=== PATIENT | female | born 1965 | race Two or more races ===

== ENCOUNTER 2020-05-31 17:24 | Emergency (ER) | payer OTHER, SELFPAY ==
--- NOTE | 2020-05-31 17:26 | ECG_ITS ---
Test Reason : CHEST PAIN Blood Pressure : / mmHG Vent. Rate : 088 BPM Atrial Rate : 088 BPM P-R Int : 146 ms QRS Dur : 070 ms QT Int : 360 ms P-R-T Axes : 063 -29 -12 degrees QTc Int : 435 ms Normal sinus rhythm Normal ECG When compared with ECG of 17-MAR-2016 04:36, No significant change was found Referred By: Generic ED Physician Electronically Signed By:WESLEY BRICENO MD
[2020-05-31 18:44] VITALS: BP 140/84; PULSE 83; PULSE 85; PULSE 90; RESP 18; TEMP 36.8; O2SAT 98; BMI 34.0
--- NOTE | 2020-05-31 18:55 | ED.CHESTPAIN ---
HPI - Chest Pain General Chief Complaint: Anxiety Stated Complaint: chest pain Time Seen by Provider: 05/31/20 18:37 Source: patient Mode of arrival: ambulatory Limitations: no limitations History of Present Illness HPI narrative: patient presents to the ED for 3 days of left-sided chest pain described as tightness with cramping /tingling sensation all over her body. patient states feeling nervous. Patient denies coughing up blood, fever, chills, swelling of lower extremities, calf pain, or shortness of breath. Patient denies any recent change in medication or drug use. Patient denies any recent long travel, recent surgery, coughing up blood or control use. Patient denies any breast swelling, nipple discharge, or mass on breast. Related Data Allergies Allergy/AdvReac Type Severity Reaction Status Date / Time ibuprofen Allergy Unknown stomach Verified 12/31/19 00:00 upset Review of Systems Review of Systems: Yes all other systems are reviewed and are negative Constitutional: Constitutional: Reports as per HPI and Reports no additional constitutional complaints Eyes: Eyes: Reports as per HPI and Reports no additional eye complaints ENT: Reports system reviewed and no additional complaints, except as documented and Reports as per HPI Cardiovascular: Cardiovascular: Reports as per HPI, Reports no additional cardiovascular complaints, Reports chest pain, Denies chest pain at rest, Denies chest pain with activity, Denies dyspnea on exertion, Denies orthopnea and Denies paroxysmal nocturnal dyspnea Respiratory: Respiratory: Reports as per HPI, Reports no additional respiratory complaints and Denies dyspnea on exertion Gastrointestinal: Gastrointestinal: Reports as per HPI and Reports no additional gastrointestinal complaints Genitourinary: Genitourinary: Reports no additional female genitourinary complaints and Reports as per HPI Musculoskeletal: Musculoskeletal: Reports no additional musculoskeletal complaints and Reports as per HPI Neurologic: Reports system reviewed and no additional complaints, except as documented and Reports as per HPI Comments: Tingling cramping sensation on all body. Psychiatric: Psychiatric: Reports no additional psychiatric complaints and Reports as per HPI PMF Past Medical History Medical History (Updated 06/01/20 @ 00:12 by Selin Temple) B12 deficiency Diabetes mellitus, type 2 HTN (hypertension) Surgical History (Updated 05/12/20 @ 07:08 by Opal Morales LPN) History of carpal tunnel release Hx of section Hx of tonsillectomy Family History Family History (Updated 05/12/20 @ 07:10 by Opal Morales LPN) Father Cancer Diabetes Hypertension Mother Diabetes Social History Social History (Updated 05/12/20 @ 07:10 by Opal Morales LPN) Alcohol intake: never Smoking Status: Never smoker Smoked in Last 30 Days: No Use of substances other than those prescribed or required for medical reasons: No Advance Directives: No Advance Directives Information Provided: Yes Physical Exam Vital Signs: Vital Signs: Last Vital Signs Temp 98.2 F 05/31/20 21:14 Pulse 70 05/31/20 21:14 Resp 18 05/31/20 21:14 BP 121/68 05/31/20 21:14 Pulse Ox 99 05/31/20 21:14 Body Mass Index 27.8 Const: Other: Patient seems anxious. General: cooperative, healthy appearing, comfortable, no acute distress and well developed HENMT: Head: Yes normal to inspection and Yes No palpable skull fracture present Eyes: General: appearance normal, both eyes and all related structures Visual Fountain: normal visual fountain by confrontation Neck: Neck: Yes normal visual inspection and Yes full ROM Chest: Other: Positive for left upper chest wall tenderness on palpation. Chest palpation & inspection: normal inspection of the chest and localized rib tenderness with anteroposterior compression Resp: Effort & Inspection: normal respiratory effort and able to speak in complete sentences Auscultation: clear to auscultation bilaterally, no crackles, no rales, no rhonchi and no wheezes Cardio: Jugular venous distension: no JVD Heart sounds: S1 normal heart sound present and S2 normal heart sound present GI: Inspection: Yes normal to inspection and No abdominal wall ecchymosis Palpation (GI): Soft to palpation, not firm, nontender, no guarding and not rigid : General: No CVA tenderness and Yes no CVA tenderness Back/Spine/Pelvis: Back: no CVA tenderness, No CVA tenderness and No back tenderness Skin: General skin exam: no rashes or lesions noted Neuro: Other: neuro exam is intact. Negative any facial droop, negative pronator drift. Equal strength of all extremities. General: patient oriented x3, gait normal and CN's II-XI intact bilaterally Cranial nerves: Yes CN's II-XII intact bilaterally Extrem: General: Yes normal to inspection and Yes full ROM Psych: Other: Anxiety Appearance: grossly normal, well kempt and not disheveled Course Course Course Narrative: History physical exam indicates anxiety. Due to age and risk factors of diabetes patient will have a medical workup which include troponin, EKG, D-dimer, magnesium, and CPK. Reevaluation(s) Reevaluation #1: patient's D-dimer is negative. Patient has a Wells score of 0. Patient's troponin after 3 days of chest pain is negative. Patient EKG is normal. also negative for any electrolyte abnormality or or elevated CPK to indicate rhabdomyolysis. Patient is safe for discharge. Patient has chest wall tenderness. Differential and diagnosis is anxiety versus costochondritis. History, Diagnostic & physical exam does not indicate RI, PE, Pneumonia, or rhabdomylosis Time: 22:00 MDM - Chest Pain MDM Narrative Medical decision making narrative: chest wall pain. Anxiety. Lab Data Result diagrams: 05/31/20 19:05/31/20 19:20 Labs: Lab Results 05/31/20 05/31/20 05/31/20 Range/Units 19:20 19:20 19:20 WBC 10.1 (4.8-10.8) X10*3/uL RBC 4.44 (4.20-5.50) X10*6/uL Hgb 11.7 L (12.0-16.0) g/dl Hct 36.3 L (37-47) % MCV 81.8 (80-98) fL MCH 26.4 L (27.0-33.0) pg MCHC 32.2 (31.0-35.0) g/dl RDW 13.6 (11.0-16.0) % Plt Count 364 (160-400) X10*3/uL MPV 9.7 (9.4-12.3) fL Immature Gran % (Auto) 0.3 (0.0-0.4) % Neut % (Auto) 59.0 (45-73) % Lymph % (Auto) 33.1 (20-40) % [place] % (Auto) 6.1 (2-11) % Eos % (Auto) 1.1 (0-4) % Baso % (Auto) 0.4 (0-2) % Lymph # (Auto) 3.3 (1.2-4.9) X10*3/uL [place] # (Auto) 0.6 (0.1-1.2) X10*3/uL Eos # (Auto) 0.1 (0.0-0.4) X10*3/uL Baso # (Auto) 0.0 (0.0-0.2) X10*3/uL Abs Immat Gran (auto) 0.03 (0.00-0.03) X10*3/uL Absolute Neuts (auto) 6.0 (2.0-8.3) X10*3/uL Absolute Nucleated RBC 0.000 (0.0-0.012) X10*3/uL Nucleated RBC % (auto) 0.0 (0.0-0.2) /100WBC PT (10.8-13.0) SEC INR (0.9-1.1) APTT (24.1-38.0) SEC D-Dimer NG/ML Sodium 137 (135-145) mmol/L Potassium 3.8 (3.3-5.1) mmol/l Chloride 99 (96-108) mmol/L Carbon Dioxide 31 H (22-29) mmol/L Anion Gap 11 L (12-20) BUN 8 L (9-16) mg/dL Creatinine 0.79 (0.5-1.4) mg/dL Estim Creat Clear Calc 74.0 Estimated GFR > 60 Random Glucose 139 H (60-115) mg/dL Calcium 9.3 (8.4-10.2) mg/dL Magnesium 2.1 (1.6-2.6) mg/dL Total Bilirubin 0.3 (0.0-1.0) mg/dL AST 21 (5-31) U/L ALT 18 (0-31) U/L Alkaline Phosphatase 96 (39-117) U/L Total Creatine Kinase 142 H (26-140) U/L Troponin I High Sens < 3.5 (<3.5-17.0) ng/L Total Protein 7.1 (6.5-8.0) g/dL Albumin 4.1 (3.5-5.0) g/dL 05/31/20 Range/Units 19:20 WBC (4.8-10.8) X10*3/uL RBC (4.20-5.50) X10*6/uL Hgb (12.0-16.0) g/dl Hct (37-47) % MCV (80-98) fL MCH (27.0-33.0) pg MCHC (31.0-35.0) g/dl RDW (11.0-16.0) % Plt Count (160-400) X10*3/uL MPV (9.4-12.3) fL Immature Gran % (Auto) (0.0-0.4) % Neut % (Auto) (45-73) % Lymph % (Auto) (20-40) % [place] % (Auto) (2-11) % Eos % (Auto) (0-4) % Baso % (Auto) (0-2) % Lymph # (Auto) (1.2-4.9) X10*3/uL [place] # (Auto) (0.1-1.2) X10*3/uL Eos # (Auto) (0.0-0.4) X10*3/uL Baso # (Auto) (0.0-0.2) X10*3/uL Abs Immat Gran (auto) (0.00-0.03) X10*3/uL Absolute Neuts (auto) (2.0-8.3) X10*3/uL Absolute Nucleated RBC (0.0-0.012) X10*3/uL Nucleated RBC % (auto) (0.0-0.2) /100WBC PT 11.5 (10.8-13.0) SEC INR 1.0 (0.9-1.1) APTT 39.1 H (24.1-38.0) SEC D-Dimer < 200 NG/ML Sodium (135-145) mmol/L Potassium (3.3-5.1) mmol/l Chloride (96-108) mmol/L Carbon Dioxide (22-29) mmol/L Anion Gap (12-20) BUN (9-16) mg/dL Creatinine (0.5-1.4) mg/dL Estim Creat Clear Calc Estimated GFR Random Glucose (60-115) mg/dL Calcium (8.4-10.2) mg/dL Magnesium (1.6-2.6) mg/dL Total Bilirubin (0.0-1.0) mg/dL AST (5-31) U/L ALT (0-31) U/L Alkaline Phosphatase (39-117) U/L Total Creatine Kinase (26-140) U/L Troponin I High Sens (<3.5-17.0) ng/L Total Protein (6.5-8.0) g/dL Albumin (3.5-5.0) g/dL ECG Data ECG #1: Interpretation: Normal sinus rhythm. Ventricular rate 88. VA interval 146. QRS 70. Normal EKG. Negative STEMI. Discharge Plan Discharge Clinical Impression: Atypical chest pain, Paresthesia, Acute costochondritis Patient Disposition: Home, Self-Care Instructions: Paresthesia (ED), Chest Wall Pain (ED) Additional Instructions: Return to the ED for worsening chest pain, swelling of lower extremity, coughing up blood, fever, chills, weakness, headache, dizziness, or any other concerning symptoms. Please follow-up with the PCP. you can take [id number] Tylenol Referrals: Leslie Lundy MD [Primary Care Provider] - 2 days ( Chest wall pain. Paresthesia. EKG normal in the ED. Troponin negative. D-dimer negative. No acute pulmonary or cardiac etiology in the ED) Interventions: ED Discharge Assessment Last Done: 05/31/20 22:39 Discharge Date/Time: 05/31/20 22:41 Print Language: Wolof
--- NOTE | 2020-05-31 19:05 | XR_ITS ---
EXAMINATION: XR CHEST CLINICAL INFORMATION: Chest pain for 3 days COMPARISON: 03/16/2016 TECHNIQUE: Frontal view of the chest was obtained. FINDINGS: Normal symmetric lung volumes. No parenchymal consolidation. No pleural effusion. No pneumothorax. Cardiomediastinal silhouette and pulmonary vascularity are within normal limits. No acute osseous abnormalities. XR/XR chest 1V IMPRESSION: No acute findings.
[2020-05-31 19:08] VITALS: BP 142/86; PULSE 82; RESP 20; TEMP 36.8; O2SAT 100; BMI 27.8
[2020-05-31 19:26] LABS: MANUAL DIFF FLAG NO
[2020-05-31 19:32] LABS: Basophils Percent Auto 0.4 % (0-2); Eosinophils Absolute Auto 0.1 X10*3/uL (0.0-0.4); Eosinophils Percent Auto 1.1 % (0-4); Hematocrit 36.3 % (37-47); Hemoglobin 11.7 g/dl (12.0-16.0); Imm Gran Abs Auto 0.03 X10*3/uL (0.00-0.03); Imm Gran Pct Auto 0.3 % (0.0-0.4); Lymphocytes Absolute Auto 3.3 X10*3/uL (1.2-4.9); Lymphocytes Percent Auto 33.1 % (20-40); Mean Corpuscular HGB Conc 32.2 g/dl (31.0-35.0); Mean Corpuscular Hemoglobin 26.4 pg (27.0-33.0); Mean Corpuscular Volume 81.8 fL (80-98); Mean Platelet Volume 9.7 fL (9.4-12.3); Monocytes Absolute Auto 0.6 X10*3/uL (0.1-1.2); Monocytes Percent Auto 6.1 % (2-11); Platelet Count 364 X10*3/uL (160-400); Red Blood Count 4.44 X10*6/uL (4.20-5.50); Red Cell Distribution Width 13.6 % (11.0-16.0); White Blood Count 10.1 X10*3/uL (4.8-10.8)
[2020-05-31 19:38] LABS: Prothrombin Time 11.5 SEC (10.8-13.0)
[2020-05-31 19:40] LABS: Partial Thromboplastin Time 39.1 SEC (24.1-38.0)
[2020-05-31 19:52] LABS: Alanine Aminotransferase 18 U/L (0-31); Albumin Level 4.1 g/dL (3.5-5.0); Alkaline Phosphatase 96 U/L (39-117); Anion Gap 11 (12-20); Aspartate Amino Transferase 21 U/L (5-31); Bilirubin Total 0.3 mg/dL (0.0-1.0); Blood Urea Nitrogen 8 mg/dL (9-16); Calcium 9.3 mg/dL (8.4-10.2); Carbon Dioxide 31 mmol/L (22-29); Chloride 99 mmol/L (96-108); Estimated Glomerular Filt Rate > 60; Glucose Random 139 mg/dL (60-115); Magnesium 2.1 mg/dL (1.6-2.6); Potassium 3.8 mmol/l (3.3-5.1); Sodium 137 mmol/L (135-145); Total Protein 7.1 g/dL (6.5-8.0)
[2020-05-31 19:58] LABS: Troponin-I High Sensitivity < 3.5 ng/L (<3.5-17.0)
[2020-05-31 20:01] LABS: D Dimer < 200 NG/ML
[2020-05-31] MEDS: Acetaminophen 325 MG TABLET 650 MG PO (20:50)
[2020-05-31 21:14] VITALS: BP 121/68; PULSE 70; RESP 18; TEMP 36.8; O2SAT 99
--- NOTE | 2020-05-31 22:37 | PC.NURSE ---
pt awake and alert, nsr on monitor at 82 bpm. pt still experiencing tightness in chest radiating up to anterior neck, at times. pt in no distress, skin is warm and dry. pt has an appt tmrw with her pcp.
== END 2020-05-31 22:41 | disposition home or self-care (01) ==
PROVIDERS: Physician Assistant; Emergency Provider Emergency Medicine; PCP Internal Medicine
DX: M94.0 Chondrocostal junction syndrome [Tietze] (principal); R07.9 Chest pain, unspecified; R20.2 Paresthesia of skin; F41.9 Anxiety disorder, unspecified; Z79.899 Other long term (current) drug therapy
CPT/HCPCS: 36415; 71045; 80053; 82550; 83735; 84484; 85025; 85379; 85610; 85730; 93005; 99283; 99284

== ENCOUNTER 2020-06-03 15:27 | Outpatient (REF) | payer OTHER, SELFPAY ==
[2020-06-03 16:22] LABS: Estimated Average Glucose 160 mg/dL; Hemoglobin A1c % 7.2 %
[2020-06-03 16:47] LABS: Alanine Aminotransferase 25 U/L (0-31); Albumin Level 4.2 g/dL (3.5-5.0); Alkaline Phosphatase 84 U/L (39-117); Anion Gap 18 (12-20); Aspartate Amino Transferase 25 U/L (5-31); Bilirubin Total 0.6 mg/dL (0.0-1.0); Blood Urea Nitrogen 9 mg/dL (9-16); Calcium 9.4 mg/dL (8.4-10.2); Carbon Dioxide 27 mmol/L (22-29); Chloride 97 mmol/L (96-108); Estimated Glomerular Filt Rate > 60; Glucose Random 108 mg/dL (60-115); Potassium 3.8 mmol/l (3.3-5.1); Sodium 138 mmol/L (135-145); Total Protein 7.3 g/dL (6.5-8.0)
[2020-06-03 17:04] LABS: Thyroid Stimulating Hormone 0.45 uIU/mL (0.32-4.0)
[2020-06-03 17:16] LABS: Vitamin B12 521 pg/mL (200-900)
[2020-06-03 17:35] LABS: Erythrocyte Sedimentation Rate 25 MM/HR (0-20)
[2020-06-03 17:44] LABS: Rheumatoid Factor < 15.0 IU/mL (<15.0)
[2020-06-04 14:22] LABS: Anti Nuclear Antibody Screen NEGATIVE (NEGATIVE)
== END 2020-06-03 15:28 | disposition home or self-care (01) ==
LOC: HO.LAB 15:27
PROVIDERS: PCP Internal Medicine; Referring Provider Psychiatry & Neurology Neurology; Visit Provider Internal Medicine
DX: M79.7 Fibromyalgia (principal)
CPT/HCPCS: 36415; 80053; 82550; 82607; 82746; 83036; 84443; 85652; 86038; 86039; 86431

== ENCOUNTER → 2020-08-05 07:46 | Outpatient (BNVA) | payer OTHER, SELFPAY | PROVIDERS: PCP Internal Medicine; Referring Provider Internal Medicine; Visit Provider Internal Medicine Endocrinology, Diabetes & Metabolism | DX: Z76.89 Persons encountering health services in other specified circumstances (principal) ==

== ENCOUNTER 2020-08-13 07:33 | Outpatient (REF) | payer OTHER, SELFPAY ==
[2020-08-14 20:57] LABS: Adrenocorticotropic Hormone 6 pg/mL (6-50)
[2020-08-19 12:43] LABS: Dexamethasone 558 ng/dL
== END 2020-08-13 07:34 | disposition home or self-care (01) ==
LOC: HO.LAB 07:33
PROVIDERS: PCP Internal Medicine; Visit Provider Internal Medicine Endocrinology, Diabetes & Metabolism
DX: D35.02 Benign neoplasm of left adrenal gland (principal)
CPT/HCPCS: 36415; 80299; 82024; 82533

== ENCOUNTER 2020-09-07 12:24 | Outpatient (REF) | payer OTHER, SELFPAY ==
[2020-09-07 13:47] LABS: Alanine Aminotransferase 19 U/L (0-31); Albumin Level 4.2 g/dL (3.5-5.0); Alkaline Phosphatase 88 U/L (39-117); Anion Gap 13 (12-20); Aspartate Amino Transferase 17 U/L (5-31); Bilirubin Total 0.6 mg/dL (0.0-1.0); Blood Urea Nitrogen 8 mg/dL (9-16); Calcium 9.6 mg/dL (8.4-10.2); Carbon Dioxide 26 mmol/L (22-29); Chloride 103 mmol/L (96-108); Estimated Glomerular Filt Rate > 60; Glucose Random 118 mg/dL (60-115); Potassium 3.8 mmol/L (3.3-5.1); Sodium 138 mmol/L (135-145); Total Protein 7.2 g/dL (6.5-8.0)
[2020-09-07 13:59] LABS: Estimated Average Glucose 140 mg/dL; Hemoglobin A1C 148.5257 umol/L; Hemoglobin A1c % 6.5 %
== END 2020-09-07 12:25 | disposition home or self-care (01) ==
LOC: HO.LAB 12:24
PROVIDERS: Visit Provider Internal Medicine
DX: E03.9 Hypothyroidism, unspecified (principal); E11.9 Type 2 diabetes mellitus without complications; I10 Essential (primary) hypertension
CPT/HCPCS: 36415; 80053; 83036

== ENCOUNTER 2020-12-10 01:17 | Emergency (ER) | payer OTHER, SELFPAY ==
--- NOTE | ~2020-12-10 | CT_ITS ---
EXAMINATION: CT ABDOMEN AND PELVIS WITH CONTRAST CLINICAL INFORMATION: Left abdominal pain COMPARISON: 02/09/2018 TECHNIQUE: Multidetector volumetric images were obtained from the superior aspect of the liver through the pubic symphysis following administration 85 mL of Omnipaque 350 intravenous contrast. Sagittal and coronal reformatted images were obtained on the technologist's workstation. Oral contrast: No This CT examination was performed using dose optimization techniques as appropriate, variously including the following: *Automated exposure control *Adjustment of mA and/or kV according to patient size (this includes techniques or standardized protocols for targeted exams where dose is matched to indication/reason for exam; i.e. extremities or head) *Use of iterative reconstruction technique DLP: 640 mGy-cm FINDINGS: LUNG BASES: The visualized lung bases demonstrate minimal atelectasis. LIVER, GALLBLADDER, AND BILIARY TREE: The liver is normal in size, shape, and attenuation. No focal hepatic lesion or biliary ductal dilatation is present. The gallbladder is unremarkable with no evidence of radiopaque gallstones, gallbladder wall thickening, or obvious pericholecystic inflammatory changes. PANCREAS: Unremarkable. SPLEEN: Unremarkable. ADRENAL GLANDS: Stable small left adrenal nodule, statistically likely an adenoma. KIDNEYS AND URETERS: The kidneys are normal in size, shape, and attenuation. No hydronephrosis, hydroureter, or obstructing calculi seen. No perinephric stranding. BLADDER: Unremarkable. GASTROINTESTINAL TRACT: There is fecalization of distal small bowel loops extending to the ileocecal valve, suggesting delayed intestinal transit without specific evidence for obstruction. Prominent stool in the ascending and proximal transverse colon. No significant bowel wall thickening is seen. The appendix is unremarkable. No free fluid or free air is seen. ABDOMINAL WALL: No significant hernia is appreciated. LYMPH NODES: Normal. VASCULAR: Unremarkable. PELVIC VISCERA: Unremarkable. OSSEOUS STRUCTURES: Degenerative changes are noted in the spine. CT/CT abdomen pelvis w con IMPRESSION: Fecalization of distal small bowel loops suggesting delayed intestinal transit, without specific evidence for obstruction.
[2020-12-10 02:21] VITALS: BP 149/94; PULSE 71; RESP 16; TEMP 36.7; O2SAT 99; BMI 31.7
[2020-12-10 02:44] LABS: MANUAL DIFF FLAG NO
[2020-12-10 02:46] LABS: Basophils Percent Auto 0.3 % (0-2); Eosinophils Absolute Auto 0.1 X10*3/uL (0.0-0.4); Eosinophils Percent Auto 0.8 % (0-4); Hematocrit 37.8 % (37-47); Imm Gran Abs Auto 0.03 X10*3/uL (0.00-0.03); Imm Gran Pct Auto 0.3 % (0.0-0.4); Lymphocytes Absolute Auto 2.7 X10*3/uL (1.2-4.9); Lymphocytes Percent Auto 25.2 % (20-40); Mean Corpuscular HGB Conc 31.7 g/dl (31.0-35.0); Mean Corpuscular Hemoglobin 26.2 pg (27.0-33.0); Mean Corpuscular Volume 82.5 fL (80-98); Mean Platelet Volume 9.6 fL (9.4-12.3); Monocytes Absolute Auto 0.7 X10*3/uL (0.1-1.2); Monocytes Percent Auto 6.3 % (2-11); Neutrophils Absolute Auto 7.2 X10*3/uL (2.0-8.3); Neutrophils Percent Auto 67.1 % (45-73); Platelet Count 344 X10*3/uL (160-400); Red Blood Count 4.58 X10*6/uL (4.20-5.50); Red Cell Distribution Width 14.3 % (11.0-16.0); White Blood Count 10.7 X10*3/uL (4.8-10.8)
[2020-12-10 03:09] LABS: Alanine Aminotransferase 17 U/L (0-31); Alkaline Phosphatase 98 U/L (39-117); Anion Gap 11 (12-20); Aspartate Amino Transferase 15 U/L (5-31); Bilirubin Total 0.2 mg/dL (0.0-1.0); Blood Urea Nitrogen 9 mg/dL (9-16); Calcium 9.1 mg/dL (8.4-10.2); Carbon Dioxide 27 mmol/L (22-29); Chloride 106 mmol/L (96-108); Creatinine Clr Calc Pharmacy 69.7; Estimated Glomerular Filt Rate > 60; Glucose Random 129 mg/dL (60-115); Lipase 22 U/L (8-78); Potassium 3.9 mmol/L (3.3-5.1); Sodium 140 mmol/L (135-145); Total Protein 6.9 g/dL (6.5-8.0)
[2020-12-10 04:00] VITALS: BP 149/74; PULSE 80; RESP 16; TEMP 36.7; O2SAT 98
--- NOTE | 2020-12-10 04:46 | ED.ABDPAIN ---
HPI - Abdominal Pain General Chief Complaint: Abdominal Pain Stated Complaint: back pain Time Seen by Provider: 12/10/20 04:46 Source: patient Mode of arrival: ambulatory History of Present Illness HPI narrative: 55-year-old female presents with abdominal pain that started yesterday and radiates across her lower abdomen but primarily on the left with radiation into the front. This is not been associated with fever, chills, nausea, vomiting and patient states that she is still passing flatus and having bowel movements. The pain is better tolerated in a standing position in becomes worse with lying down. Related Data Home Medications Medication Instructions Recorded Confirmed biotin 1 mg capsule 5,000 mg PO DAILY cap 08/05/20 08/05/20 cholecalciferol (vitamin D3) 25 25 mcg PO DAILY 08/05/20 08/05/20 mcg (1,000 unit) capsule levothyroxine 88 mcg capsule 88 mcg PO DAILY 08/05/20 08/05/20 metformin 500 mg tablet 500 mg PO BID tab 08/05/20 08/05/20 multivitamin 1 tab PO DAILY 08/05/20 08/05/20 Previous Rx's Medication Instructions Recorded dexamethasone 1 mg tablet 1 mg PO ONCE 1 Days #1 tab 08/05/20 Allergies Allergy/AdvReac Type Severity Reaction Status Date / Time ibuprofen Allergy Unknown stomach Verified 12/31/19 00:00 upset Review of Systems Review of Systems Pertinent positives and negatives as stated in HPI 10 point review of systems is otherwise negative. Physical Exam Vital Signs: Vital Signs: Last Vital Signs Temp 98.1 F 12/10/20 06:00 Pulse 72 12/10/20 07:57 Resp 15 12/10/20 06:00 BP 125/73 12/10/20 07:57 Pulse Ox 99 12/10/20 06:00 Body Mass Index 31.7 VITAL SIGNS: Reviewed. GENERAL: Well developed, well nourished, in no acute distress. HEAD: Normocephalic/atraumatic, EYES: PERRLA, EOMI EARS: Ext canals without abnormality, NOSE: Nares patent bilateral OROPHARYNX: no oral lesions noted, posterior pharynx clear NECK: Supple, no adenopathy LUNGS: Normal breath sounds. No adventitious sounds or accessory muscle use. SpO2<99> CARDIOVASCULAR: Regular rate and rhythm without noted murmurs ABDOMEN: Soft, tenderness on left abdomen into the flank without rebound and no CVA tenderness noted, non-distended with bowel sounds. NEUROLOGIC: Alert and oriented x 4. Course Course Course Narrative: 45-year-old female with history and clinical presentation suggestive of possible diverticulitis, renal colic, SBO but less likely UTI. On review of all investigations there in no acute findings other than CT impression of fecalization of distal small bowel loops extending to the ileocecal valve without specific evidence for obstruction. This was discussed with Dr. Murcia who will be by to see the patient and thinks this to be most consistent with partial bowel obstruction. Dr. Murcia came by and evaluated the patient who is resting comfortably in bed and has a completely benign abdomen and on questioning feels much better. Patient was informed of all results and was instructed to follow-up with her primary care provider today. MDM - Abdominal Pain Lab Data Result diagrams: 12/10/20 02:41 12/10/20 02:41 Labs: Lab Results 12/10/20 12/10/20 12/10/20 Range/Units 02:41 02:41 02:41 WBC 10.7 (4.8-10.8) X10*3/uL RBC 4.58 (4.20-5.50) X10*6/uL Hgb 12.0 (12.0-16.0) g/dl Hct 37.8 (37-47) % MCV 82.5 (80-98) fL MCH 26.2 L (27.0-33.0) pg MCHC 31.7 (31.0-35.0) g/dl RDW 14.3 (11.0-16.0) % Plt Count 344 (160-400) X10*3/uL MPV 9.6 (9.4-12.3) fL Immature Gran % (Auto) 0.3 (0.0-0.4) % Neut % (Auto) 67.1 (45-73) % Lymph % (Auto) 25.2 (20-40) % [place] % (Auto) 6.3 (2-11) % Eos % (Auto) 0.8 (0-4) % Baso % (Auto) 0.3 (0-2) % Lymph # (Auto) 2.7 (1.2-4.9) X10*3/uL [place] # (Auto) 0.7 (0.1-1.2) X10*3/uL Eos # (Auto) 0.1 (0.0-0.4) X10*3/uL Baso # (Auto) 0.0 (0.0-0.2) X10*3/uL Abs Immat Gran (auto) 0.03 (0.00-0.03) X10*3/uL Absolute Neuts (auto) 7.2 (2.0-8.3) X10*3/uL Absolute Nucleated RBC 0.000 (0.0-0.012) X10*3/uL Nucleated RBC % (auto) 0.0 (0.0-0.2) /100WBC Hold Blue Top SEE NOTE Sodium 140 (135-145) mmol/L Potassium 3.9 (3.3-5.1) mmol/L Chloride 106 (96-108) mmol/L Carbon Dioxide 27 (22-29) mmol/L Anion Gap 11 L (12-20) BUN 9 (9-16) mg/dL Creatinine 0.75 (0.5-1.4) mg/dL Estim Creat Clear Calc 69.7 Estimated GFR > 60 Random Glucose 129 H (60-115) mg/dL Calcium 9.1 (8.4-10.2) mg/dL Total Bilirubin 0.2 (0.0-1.0) mg/dL AST 15 (5-31) U/L ALT 17 (0-31) U/L Alkaline Phosphatase 98 (39-117) U/L Total Protein 6.9 (6.5-8.0) g/dL Albumin 4.0 (3.5-5.0) g/dL Lipase 22 (8-78) U/L Urine Color Urine Appearance Urine pH (5.0-8.0) Ur Specific [place] (1.005-1.025) Urine Protein (NEG-TRACE) MG/DL Urine Glucose (UA) (NEG) MG/DL Urine Ketones (NEG) MG/DL Urine Blood (NEG) Urine Nitrite (NEG) Ur Leukocyte Esterase (NEG) 12/10/20 Range/Units 07:46 WBC (4.8-10.8) X10*3/uL RBC (4.20-5.50) X10*6/uL Hgb (12.0-16.0) g/dl Hct (37-47) % MCV (80-98) fL MCH (27.0-33.0) pg MCHC (31.0-35.0) g/dl RDW (11.0-16.0) % Plt Count (160-400) X10*3/uL MPV (9.4-12.3) fL Immature Gran % (Auto) (0.0-0.4) % Neut % (Auto) (45-73) % Lymph % (Auto) (20-40) % [place] % (Auto) (2-11) % Eos % (Auto) (0-4) % Baso % (Auto) (0-2) % Lymph # (Auto) (1.2-4.9) X10*3/uL [place] # (Auto) (0.1-1.2) X10*3/uL Eos # (Auto) (0.0-0.4) X10*3/uL Baso # (Auto) (0.0-0.2) X10*3/uL Abs Immat Gran (auto) (0.00-0.03) X10*3/uL Absolute Neuts (auto) (2.0-8.3) X10*3/uL Absolute Nucleated RBC (0.0-0.012) X10*3/uL Nucleated RBC % (auto) (0.0-0.2) /100WBC Hold Blue Top Sodium (135-145) mmol/L Potassium (3.3-5.1) mmol/L Chloride (96-108) mmol/L Carbon Dioxide (22-29) mmol/L Anion Gap (12-20) BUN (9-16) mg/dL Creatinine (0.5-1.4) mg/dL Estim Creat Clear Calc Estimated GFR Random Glucose (60-115) mg/dL Calcium (8.4-10.2) mg/dL Total Bilirubin (0.0-1.0) mg/dL AST (5-31) U/L ALT (0-31) U/L Alkaline Phosphatase (39-117) U/L Total Protein (6.5-8.0) g/dL Albumin (3.5-5.0) g/dL Lipase (8-78) U/L Urine Color STRAW Urine Appearance CLEAR Urine pH 5.5 (5.0-8.0) Ur Specific [place] <= 1.005 (1.005-1.025) Urine Protein NEG (NEG-TRACE) MG/DL Urine Glucose (UA) NEG (NEG) MG/DL Urine Ketones NEG (NEG) MG/DL Urine Blood NEG (NEG) Urine Nitrite NEG (NEG) Ur Leukocyte Esterase NEG (NEG) Discharge Plan Discharge Clinical Impression: Abdominal pain, Constipation Patient Disposition: Home, Self-Care Instructions: Constipation (ED), High Fiber Diet (ED) Additional Instructions: Resume all home medications as prescribed. Follow-up with your primary care provider today for re-evaluation regarding your abdominal pain/CT findings constipation. Return to the emergency room should you experience any worsening of your symptoms. Prescriptions: No Action metformin 500 mg tablet 500 mg PO BID RF: 0 biotin 1 mg capsule 5,000 mg PO DAILY RF: 0 levothyroxine 88 mcg capsule 88 mcg PO DAILY RF: 0 multivitamin Tablet 1 tab PO DAILY RF: 0 cholecalciferol (vitamin D3) 25 mcg (1,000 unit) capsule 25 mcg PO DAILY RF: 0 dexamethasone 1 mg tablet 1 mg PO ONCE 1 Days Qty: 1 RF: 0 Referrals: Leslie Lundy MD [Primary Care Provider] - 2 days (Re-evaluation abdominal pain and found to have constipation.) [facility] Past Medical History Source: nursing notes reviewed Medical History (Updated 12/10/20 @ 08:41 by Eliana Stinson MD) Abnormal CT scan, gastrointestinal tract Adenoma of left adrenal gland B12 deficiency Diabetes mellitus, type 2 HTN (hypertension) Hypothyroidism Vitamin D deficiency Surgical History History of carpal tunnel release Hx of section Hx of tonsillectomy Family History Family History Father Cancer Diabetes Hypertension Mother Diabetes Social History Social History Alcohol intake: never Smoking Status: Never smoker Use of substances other than those prescribed or required for medical reasons: No Advance Directives: No Advance Directives Information Provided: No Patient : No
[2020-12-10] MEDS: 0.9 % Sodium Chloride 1,000 ML 999 ML IV (04:47)
[2020-12-10] MEDS: Ketorolac Tromethamine 15 MG/ML VIAL IVPUSH (04:47)
[2020-12-10] MEDS: iohexoL 350 MG/ML 100 ML INFUS..BTL 85 ML IV (05:39)
[2020-12-10 06:00] VITALS: BP 136/76; PULSE 71; RESP 15; TEMP 36.7; O2SAT 99
[2020-12-10 07:57] VITALS: BP 125/73; PULSE 72
[2020-12-10 07:58] LABS: Glucose Urine UA NEG (NEG); Leukocyte Esterase Urine NEG (NEG); Nitrite Urine NEG (NEG); PH 5.5 (5.0-8.0); Specific Gravity - Urine <= 1.005 (1.005-1.025); Urine Blood NEG (NEG); Urine Ketones NEG (NEG); Urine Protein NEG (NEG-TRACE)
[2020-12-10 08:00] LABS: Appearance Urine CLEAR; Color Urine STRAW
--- NOTE | 2020-12-10 08:21 | P.CONGS_ITS ---
History of Present Illness Consult details Consult date: 12/10/20 Narrative: 55-year-old female who came to the emergency room early this morning because of what she describes as severe back pain. She said this was mostly on the left mid back to the left lower back radiating to the left flank. She did state that the pain was also noted on the right side. She actually says that she really did not have any abdominal pain but what she felt was that the pain was radiating to the flanks. She denies any nausea or vomiting. She denies any problems with bowel movements. She denies any urinary complaints. She says the pain on her back was severe that she could barely walk earlier. Virginie crowley says she feels better now but this was because she got a lot of pain medications here in the emergency room. Review of Systems Constitutional: Constitutional: Denies chills and Denies fever(s) Cardiovascular: Cardiovascular: Denies chest pain, Denies dyspnea and Denies dyspnea on exertion Respiratory: Respiratory: Denies cough, Denies dyspnea and Denies dyspnea on exertion Gastrointestinal: Gastrointestinal: Denies hematochezia and Denies change in bowel habits Genitourinary: Genitourinary: Denies hematuria Musculoskeletal: Musculoskeletal: Denies back pain and Denies limited range of motion Neurologic: Denies focal weakness and Denies convulsions Psychiatric: Psychiatric: Reports anxiety, Reports depression, Denies mood swings and Reports panic attacks PMFSH Past Medical History Medical History (Updated 12/10/20 @ 08:41 by Eliana Stinson MD) Abnormal CT scan, gastrointestinal tract Adenoma of left adrenal gland B12 deficiency Diabetes mellitus, type 2 HTN (hypertension) Hypothyroidism Vitamin D deficiency Family History Family History Father Cancer Diabetes Hypertension Mother Diabetes Surgical History Surgical History History of carpal tunnel release Hx of section Hx of tonsillectomy Social History Social History Alcohol intake: never Smoking Status: Never smoker Use of substances other than those prescribed or required for medical reasons: No Advance Directives: No Advance Directives Information Provided: No Patient : No Meds Allergies Allergy/AdvReac Type Severity Reaction Status Date / Time ibuprofen Allergy Unknown stomach Verified 12/31/19 00:00 upset Home Medications Medication Instructions Recorded Confirmed Last Taken Type biotin 1 mg capsule 5,000 mg PO DAILY cap 08/05/20 08/05/20 Unknown History cholecalciferol (vitamin D3) 25 25 mcg PO DAILY 08/05/20 08/05/20 Unknown History mcg (1,000 unit) capsule levothyroxine 88 mcg capsule 88 mcg PO DAILY 08/05/20 08/05/20 Unknown History metformin 500 mg tablet 500 mg PO BID tab 08/05/20 08/05/20 Unknown History multivitamin 1 tab PO DAILY 08/05/20 08/05/20 Unknown History Physical Exam Vital Signs: Vital Signs: Last Vital Signs Temp 98.1 F 12/10/20 06:00 Pulse 72 12/10/20 07:57 Resp 15 12/10/20 06:00 BP 125/73 12/10/20 07:57 Pulse Ox 99 12/10/20 06:00 Body Mass Index 31.7 Const: Other: Appears anxious, denies abdominal pain General: comfortable and no acute distress Orientation/consciousness: patient oriented x3 Neck: Neck: Yes no lymphadenopathy Resp: Auscultation: clear to auscultation bilaterally Cardio: Rhythm: regular rhythm GI: Palpation (GI): Soft to palpation, nontender and no guarding : General: Yes no CVA tenderness Back/Spine/Pelvis: Back: no CVA tenderness Neuro: General: patient oriented x3 Results Labs Result diagrams: 12/10/20 02:41 12/10/20 02:41 Labs: Abnormal lab results 12/10/20 12/10/20 Range/Units 02:41 02:41 MCH 26.2 L (27.0-33.0) pg Anion Gap 11 L (12-20) Random Glucose 129 H (60-115) mg/dL Short CBC 12/10/20 Range/Units 02:41 WBC 10.7 (4.8-10.8) X10*3/uL Hgb 12.0 (12.0-16.0) g/dl Hct 37.8 (37-47) % Plt Count 344 (160-400) X10*3/uL BMP 12/10/20 02:41 Sodium 140 Potassium 3.9 Chloride 106 Carbon Dioxide 27 BUN 9 Creatinine 0.75 Calcium 9.1 Liver Function 12/10/20 Range/Units 02:41 Total Bilirubin 0.2 (0.0-1.0) mg/dL AST 15 (5-31) U/L ALT 17 (0-31) U/L Alkaline Phosphatase 98 (39-117) U/L Albumin 4.0 (3.5-5.0) g/dL Urine 12/10/20 Range/Units 07:46 Urine Color STRAW Urine Appearance CLEAR Urine pH 5.5 (5.0-8.0) Ur Specific [place] <= 1.005 (1.005-1.025) Urine Protein NEG (NEG-TRACE) MG/DL Urine Glucose (UA) NEG (NEG) MG/DL All other labs normal. Imaging Abdomen CT scan report/results: report reviewed and image reviewed CT scan - pelvis: report reviewed and image reviewed Assessment and Plan (1) Abnormal CT scan, gastrointestinal tract: Status: Acute The patient came to the ER early this morning because of what she describe s severe back pain mostly on the left side and extending to the left flank area. She had a CAT scan of the abdomen done which showed some fecalization of the terminal ileum. However there is no obstruction noted. She has good amount of air in the colon elevated transverse. She denies any GI complaints and does not have any nausea or vomiting. Her abdominal exam is very benign and there is no tenderness at all. She has no nausea or vomiting. At this time, she does not seem to have any surgical issues clinically. Again, review of her CAT scan does not suggest obstruction at this point. She states that her main complaint was back pain radiating to the flanks. I would recommend further workup for back pain. At this time, she can resume diet as tolerated. I will follow along for serial abdominal exam while she is in the hospital. I explained the above to the patient and her . Procedures Date of Service Date of Service: 12/10/20
== END 2020-12-10 09:06 | disposition home or self-care (01) ==
PROVIDERS: Emergency Provider Student in an Organized Health Care Education/Training Program; PCP Internal Medicine
DX: K59.00 Constipation, unspecified (principal); R10.9 Unspecified abdominal pain; R93.3 Abnormal findings on diagnostic imaging of other parts of digestive tract; E11.9 Type 2 diabetes mellitus without complications; I10 Essential (primary) hypertension
CPT/HCPCS: 36415; 74177; 80053; 81003; 83690; 85025; 96361; 96374; 99284; 99285; J1885; Q9967

== ENCOUNTER 2021-04-26 10:10 | Outpatient (REF) | payer OTHER, SELFPAY ==
[2021-04-26 11:19] LABS: Estimated Average Glucose 140 mg/dL; Hemoglobin A1C 150.0319 umol/L; Hemoglobin A1c % 6.5 %
[2021-04-26 11:24] LABS: Alanine Aminotransferase 14 U/L (0-31); Albumin Level 3.9 g/dL (3.5-5.0); Alkaline Phosphatase 90 U/L (39-117); Anion Gap 10 (12-20); Aspartate Amino Transferase 16 U/L (5-31); Bilirubin Total 0.2 mg/dL (0.0-1.0); Blood Urea Nitrogen 7 mg/dL (9-16); Calcium 9.2 mg/dL (8.4-10.2); Carbon Dioxide 28 mmol/L (22-29); Chloride 105 mmol/L (96-108); Estimated Glomerular Filt Rate > 60; Glucose Fasting 125 mg/dL (60-99); Potassium 3.7 mmol/L (3.3-5.1); Sodium 139 mmol/L (135-145); Total Protein 6.8 g/dL (6.5-8.0)
== END 2021-04-26 10:11 | disposition home or self-care (01) ==
LOC: HO.LAB 10:10
PROVIDERS: PCP Internal Medicine; Visit Provider Internal Medicine
DX: E11.9 Type 2 diabetes mellitus without complications (principal)
CPT/HCPCS: 36415; 80053; 83036

== ENCOUNTER 2021-04-30 23:27 | Emergency (ER) | payer OTHER, SELFPAY ==
[2021-05-01 00:46] VITALS: BP 130/81; PULSE 78; RESP 18; TEMP 36.7; O2SAT 99; BMI 32.1
[2021-05-01 02:00] VITALS: BP 131/83; PULSE 76; RESP 18; TEMP 36.3; O2SAT 100
[2021-05-01 04:00] VITALS: BP 125/74; PULSE 66; RESP 18; TEMP 36.7; O2SAT 99
--- NOTE | 2021-05-01 04:25 | PC.NURSE ---
Provider at bed side for primary eval.
--- NOTE | 2021-05-01 04:34 | ED_ITS ---
HPI - Skin/Abscess/Foreign Bdy General Chief complaint: Skin/Abscess/Foreign Body Stated complaint: Belly button discharge/pain Time Seen by Provider: 05/01/21 01:49 Source: patient Mode of arrival: ambulatory Limitations: no limitations History of Present Illness HPI narrative: Patient comes emergency room complaining of discharge coming from the belly button with a foul smell. Patient denies fever chills, no abdominal pain. Related Data Home Medications Medication Instructions Recorded Confirmed biotin 1 mg capsule 5,000 mg PO DAILY cap 08/05/20 08/05/20 cholecalciferol (vitamin D3) 25 25 mcg PO DAILY 08/05/20 08/05/20 mcg (1,000 unit) capsule levothyroxine 88 mcg capsule 88 mcg PO DAILY 08/05/20 08/05/20 metformin 500 mg tablet 500 mg PO BID tab 08/05/20 08/05/20 multivitamin 1 tab PO DAILY 08/05/20 08/05/20 Previous Rx's Medication Instructions Recorded dexamethasone 1 mg tablet 1 mg PO ONCE 1 Days #1 tab 08/05/20 clotrimazole 1 % topical cream 1 appl TOPICAL TID #15 g 05/01/21 (Lotrimin AF (clotrimazole)) Allergies Allergy/AdvReac Type Severity Reaction Status Date / Time ibuprofen Allergy Unknown stomach Verified 12/31/19 00:00 upset Review of Systems Review of Systems: Constitutional : No Weight loss, No Fever, No Chills, No Night Sweats, No Fatigue, No Malaise ENT/Mouth : No Hearing loss, No Ear Pain, No Nasal Congestion, No Sinus Pain, No Hoarseness, No sore throat, No Rhinorrhea, No Swallowing Difficulty Eyes: No Eye Pain, No Swelling, No Redness, No Foreign Body, No Discharge, No Vision Changes Cardiovascular : No Chest Pain, No SOB, No Dyspnea on Exertion, No Orthopnea, No Edema, No Palpitations Respiratory : No Cough, No Sputum, No Wheezing, No Smoke Exposure, No Dyspnea Gastrointestinal : No Nausea, No Vomiting, No Diarrhea, No Constipation, No abdominal Pain, No Hematochezia, No Melena Genitourinary : no irregular bleeding, No Dysuria, No Urinary Frequency, No Hematuria, No Urinary Incontinence, No Urgency, No Flank Pain, No Urinary Flow Changes, No Hesitancy Musculoskeletal : No joint pain, No Myalgias, No Joint Swelling Skin : Brown discharge coming from the umbilicus Neuro : No Weakness, No Numbness, No Paresthesias, No Loss of Consciousness, No Dizziness, No Headache Psych : No Anxiety/Panic, No Depression, No SI/HI/AH/VH, No Social Issues, Heme/Lymph: No Bruising, No Bleeding,No Lymphadenopathy Endocrine : No Polyuria, No Polydipsia, No Temperature Intolerance [facility] Past Medical History Medical History Abnormal CT scan, gastrointestinal tract Adenoma of left adrenal gland B12 deficiency Diabetes mellitus, type 2 HTN (hypertension) Hypothyroidism Vitamin D deficiency Surgical History History of carpal tunnel release Hx of section Hx of tonsillectomy Family History Family History Father Cancer Diabetes Hypertension Mother Diabetes Social History Social History Alcohol intake: never Advance Directives: No Patient : No Physical Exam Vital Signs: Vital Signs: Last Vital Signs Temp 97.3 F 05/01/21 02:00 Pulse 76 05/01/21 02:00 Resp 18 05/01/21 02:00 BP 131/83 05/01/21 02:00 Pulse Ox 100 05/01/21 02:00 Body Mass Index 32.1 Const: Other: Appearance: Alert. Oriented X3. No acute distress. Eyes: Pupils equal, round and reactive to light. ENT: Pharynx normal. Neck: Normal inspection. Neck supple. No lymph nodes noted. No crepitus CVS: Normal heart rate and rhythm. Pulses normal. Normal S1 and S2 Respiratory: No respiratory distress. Breath sounds normal. No Wheezing. No rales Abdomen: Soft and nontender. No rigidity. No distention. Umbilicus has brownish discharge, no pus, no blood, erythema inside the umbilicus, skin in the abdomen completely within normal limits, bedside ultrasound does not show any abscess in the lower quadrants or underneath the umbilicus Skin: Skin warm and dry. Normal skin color. Normal skin turgor. Extremities: No lower extremity edema. No lower extremity edema. No Lacerations. No Rash Neuro: Oriented X 3. No motor deficit. No sensory deficit. Moving all extermities. No slurred speech. Course Course Course Narrative: I discussed the physical exam with the patient, patient likely having a fungal infection/cutaneous candidiasis. Umbilicus was completely clean, no discharge to obtain, no pus, only surrounding erythema. Discharge Plan Discharge Clinical Impression: Candidiasis Patient Disposition: Home, Self-Care Instructions: Skin Yeast Infection (ED) Additional Instructions: Please follow-up with your primary care physician tomorrow. If you have any worsening or new symptoms, please return to the emergency room or call 911 Prescriptions: New clotrimazole [Lotrimin AF (clotrimazole)] 1 % cream 1 appl topical TID Qty: 15 RF: 0 No Action metformin 500 mg tablet 500 mg PO BID RF: 0 biotin 1 mg capsule 5,000 mg PO DAILY RF: 0 levothyroxine 88 mcg capsule 88 mcg PO DAILY RF: 0 multivitamin Tablet 1 tab PO DAILY RF: 0 cholecalciferol (vitamin D3) 25 mcg (1,000 unit) capsule 25 mcg PO DAILY RF: 0 dexamethasone 1 mg tablet 1 mg PO ONCE 1 Days Qty: 1 RF: 0
== END 2021-05-01 05:04 | disposition home or self-care (01) ==
PROVIDERS: Emergency Provider Emergency Medicine; PCP Internal Medicine
DX: B37.2 Candidiasis of skin and nail (principal); I10 Essential (primary) hypertension; E11.9 Type 2 diabetes mellitus without complications; Z79.84 Long term (current) use of oral hypoglycemic drugs; Z79.899 Other long term (current) drug therapy
CPT/HCPCS: 99283

== ENCOUNTER → 2021-11-02 13:03 | Outpatient (BNVA) | payer OTHER, SELFPAY | PROVIDERS: PCP Internal Medicine; Visit Provider Internal Medicine Endocrinology, Diabetes & Metabolism | DX: D35.02 Benign neoplasm of left adrenal gland (principal); I10 Essential (primary) hypertension; E11.9 Type 2 diabetes mellitus without complications; E03.9 Hypothyroidism, unspecified; E55.9 Vitamin D deficiency, unspecified; E53.8 Deficiency of other specified B group vitamins; Z88.8 Allergy status to other drugs, medicaments and biological substances; Z79.84 Long term (current) use of oral hypoglycemic drugs; Z79.899 Other long term (current) drug therapy | CPT/HCPCS: 99212 ==

== ENCOUNTER 2021-11-03 13:51 | Outpatient (REF) | payer OTHER, SELFPAY ==
[2021-11-03 15:09] LABS: Free T4 (Free Thyroxine) 1.11 ng/dL (0.71-1.85)
[2021-11-16 16:12] LABS: Catecholamine Frac, Total 582 pg/mL
== END 2021-11-03 13:52 | disposition home or self-care (01) ==
LOC: HO.LAB 13:51
PROVIDERS: PCP Internal Medicine; Visit Provider Internal Medicine Endocrinology, Diabetes & Metabolism
DX: D35.02 Benign neoplasm of left adrenal gland (principal)
CPT/HCPCS: 36415; 82384; 84439; 84443

== ENCOUNTER 2021-11-08 09:00 | Outpatient (REF) | payer OTHER, SELFPAY ==
[2021-11-08 10:32] LABS: Anion Gap 10 (12-20); Blood Urea Nitrogen 10 mg/dL (9-16); Calcium 9.4 mg/dL (8.4-10.2); Carbon Dioxide 28 mmol/L (22-29); Chloride 104 mmol/L (96-108); Estimated Glomerular Filt Rate > 60; Glucose Random 122 mg/dL (60-115); Sodium 138 mmol/L (135-145)
[2021-11-08 11:09] LABS: Folate 7.8 ng/mL (> or = 4.0); Vitamin B12 > 2000 pg/mL (200-900)
== END 2021-11-08 09:01 | disposition home or self-care (01) ==
LOC: HO.LAB 09:00
PROVIDERS: PCP Internal Medicine; Visit Provider Psychiatry & Neurology Neurology
DX: E11.40 Type 2 diabetes mellitus with diabetic neuropathy, unspecified (principal)
CPT/HCPCS: 36415; 80048; 82607; 82746

== ENCOUNTER 2021-11-10 07:39 | Outpatient (REF) | payer OTHER, SELFPAY ==
[2021-11-10 09:54] LABS: Cortisol Random < 1.0 ug/dL
[2021-11-17 13:27] LABS: Dexamethasone 642 ng/dL
== END 2021-11-10 07:40 | disposition home or self-care (01) ==
LOC: HO.LAB 07:39
PROVIDERS: PCP Internal Medicine; Visit Provider Internal Medicine Endocrinology, Diabetes & Metabolism
DX: D35.02 Benign neoplasm of left adrenal gland (principal)
CPT/HCPCS: 36415; 80299; 82533

== ENCOUNTER 2021-11-11 14:21 | Outpatient (REF) | payer OTHER, SELFPAY ==
[2021-11-16 17:16] LABS: Metanephrine, Free 33 pg/mL (<=57); Normetanephrines, Free 71 pg/mL (<=148); Total Metanephrine, Free 104 pg/mL (<=205)
== END 2021-11-11 14:22 | disposition home or self-care (01) ==
LOC: HO.LAB 14:21
PROVIDERS: PCP Internal Medicine; Visit Provider Internal Medicine Endocrinology, Diabetes & Metabolism
DX: D35.02 Benign neoplasm of left adrenal gland (principal)
CPT/HCPCS: 36415; 83835

== ENCOUNTER 2022-02-14 13:01 | Outpatient (REF) | payer OTHER, SELFPAY ==
--- NOTE | ~2022-02-14 | XR_ITS ---
EXAMINATION: XR KNEE AP STANDING, BILATERAL XR KNEE, LEFT CLINICAL INFORMATION: Pain left knee. COMPARISON: None TECHNIQUE: AP bilateral knee standing. Left knee 2 views. FINDINGS: AP BILATERAL KNEE: There is mild reduction in medial compartment joint space both knees. The lateral compartment joint space is maintained normal. The soft tissues are normal. LEFT KNEE: There is moderate reduction in the patellofemoral compartment joint space left knee with periarticular spurring. No loose body seen. No abnormal joint effusion. No bony erosive changes. XR/XR knee standing BI IMPRESSION: Moderate degenerative changes medial and patellofemoral compartment left knee without joint effusion. No loose bodies or bony erosive changes. Mild degenerative arthritic changes medial compartment right knee.
--- NOTE | ~2022-02-14 | XR_ITS ---
EXAMINATION: XR KNEE AP STANDING, BILATERAL XR KNEE, LEFT CLINICAL INFORMATION: Pain left knee. COMPARISON: None TECHNIQUE: AP bilateral knee standing. Left knee 2 views. FINDINGS: AP BILATERAL KNEE: There is mild reduction in medial compartment joint space both knees. The lateral compartment joint space is maintained normal. The soft tissues are normal. LEFT KNEE: There is moderate reduction in the patellofemoral compartment joint space left knee with periarticular spurring. No loose body seen. No abnormal joint effusion. No bony erosive changes. XR/XR knee LT 2V IMPRESSION: Moderate degenerative changes medial and patellofemoral compartment left knee without joint effusion. No loose bodies or bony erosive changes. Mild degenerative arthritic changes medial compartment right knee.
== END 2022-02-14 13:02 | disposition home or self-care (01) ==
LOC: HO.HOSX 13:01
PROVIDERS: Visit Provider Physician Assistant
DX: M17.12 Unilateral primary osteoarthritis, left knee (principal); M23.92 Unspecified internal derangement of left knee
CPT/HCPCS: 20610; 73560; 73565; 99202; J1040

== ENCOUNTER 2022-03-03 14:22 | Outpatient (REF) | payer OTHER, SELFPAY ==
--- NOTE | ~2022-03-03 | MR_ITS ---
EXAMINATION: MR KNEE WITHOUT CONTRAST, LEFT CLINICAL INFORMATION: M17.12 - Unilateral primary osteoarthritis, left knee PAIN COMPARISON: Radiographs from the same day. TECHNIQUE: MRI of the knee without contrast was performed using routine sequences on a high-field scanner. FINDINGS: MENISCI: Medial Meniscus: Intact Lateral Meniscus: Intact LIGAMENTS: Cruciate: Intact Collateral: There is a 1.5 x 1.3 x 0.7 cm focus of low signal intensity at the superficial and posterior margins of the MCL and posterior oblique ligament at the level of the medial femoral epicondyle, most consistent with hydroxyapatite deposition disease. There is surrounding soft tissue edema. This focus also abuts the adjacent medial head of the gastrocnemius muscle near its origin. Collateral ligaments are intact. EXTENSOR MECHANISM: Intact ARTICULAR CARTILAGE/BONE: Patellofemoral Compartment: Diffuse high-grade, full-thickness cartilage loss is evident at the lateral patellar and trochlear facets with articular cortical remodeling, subchondral edema, and marginal osteophytes. Mild lateral patellar subluxation. More mild to moderate nonuniform cartilage loss in the medial facet with full-thickness fissuring. Medial Compartment: Small marginal osteophytes. Mild chondral thinning at the medial tibial plateau. No chondral defects. Lateral Compartment: Size marginal osteophytes. Mild chondral thinning at the posterior nonweightbearing surface of the lateral femoral condyle and, to a lesser extent, the lateral tibial plateau. No fractures. JOINT FLUID AND BURSAE: Moderate-sized joint effusion. No significant bursitis. MR/MR knee LT wo con IMPRESSION: 1. 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 Surrounding reactive soft tissue edema. 2. Severe osteoarthritis of the lateral facets of the patellofemoral compartment. 3. More mild osteoarthritis in the lateral compartment and, to a lesser extent, the medial compartment. 4. Moderate-sized joint effusion.
== END 2022-03-03 14:23 | disposition home or self-care (01) ==
LOC: HO.MRI 14:22
PROVIDERS: Visit Provider Physician Assistant
DX: M17.12 Unilateral primary osteoarthritis, left knee (principal); M23.90 Unspecified internal derangement of unspecified knee
CPT/HCPCS: 73721

== ENCOUNTER → 2022-03-23 08:43 | Outpatient (BNVA) | payer OTHER, SELFPAY | PROVIDERS: PCP Internal Medicine; Visit Provider Physician Assistant | DX: M17.12 Unilateral primary osteoarthritis, left knee (principal) | CPT/HCPCS: 99212 ==

== ENCOUNTER → 2022-03-31 14:06 | Outpatient (BNVA) | payer OTHER, SELFPAY | PROVIDERS: PCP Internal Medicine; Visit Provider Orthopaedic Surgery | DX: M17.12 Unilateral primary osteoarthritis, left knee (principal); E11.9 Type 2 diabetes mellitus without complications | CPT/HCPCS: 99212 ==

== ENCOUNTER → 2022-04-25 12:03 | Outpatient (BNVA) | payer OTHER, SELFPAY | PROVIDERS: PCP Internal Medicine; Visit Provider Orthopaedic Surgery | DX: M17.10 Unilateral primary osteoarthritis, unspecified knee (principal); E11.9 Type 2 diabetes mellitus without complications | CPT/HCPCS: 99212 ==

== ENCOUNTER 2022-05-06 13:20 | Emergency (ER) | payer OTHER, SELFPAY ==
--- NOTE | ~2022-05-06 | XR_ITS ---
EXAMINATION: XR CHEST CLINICAL INFORMATION: Chest pain COMPARISON: Previous chest x-ray May 2020 TECHNIQUE: Frontal view of the chest was obtained. FINDINGS: The cardiac and mediastinal contours are normal. The lungs are clear. There is no pleural effusion or pneumothorax. There are degenerative changes of the spine. XR/XR chest 1V IMPRESSION: Unremarkable examination.
--- NOTE | ~2022-05-06 | CT_ITS ---
EXAMINATION: CT CERVICAL SPINE WITHOUT CONTRAST CLINICAL INFORMATION: Left-sided neck pain COMPARISON: 08/30/2016 TECHNIQUE: Multidetector CT scan of the cervical spine with multiplanar reconstructions. This CT examination was performed using dose optimization techniques as appropriate, variously including the following: *Automated exposure control *Adjustment of mA and/or kV according to patient size (this includes techniques or standardized protocols for targeted exams where dose is matched to indication/reason for exam; i.e. extremities or head) *Use of iterative reconstruction technique DLP: 438 mGy-cm FINDINGS: There is reversal of the normal cervical lordosis. No prevertebral soft tissue swelling. Progressive degenerative disc disease throughout most notable at C4-C5 and C5-C6. No fracture or subluxation. Limited detail but there is disc osteophyte complexes posteriorly at this level resulting in at least mild to moderate central canal narrowing. Please note the disc spaces are suboptimally assessed due to plane of scanning. The paraspinal soft tissues are within normal limits. Lung apices clear. CT/CT cervical spine wo IV con IMPRESSION: No acute findings. Progressive degenerative disc disease particularly within the mid cervical spine as above. Fleischner guidelines were followed.
[2022-05-06 15:19] VITALS: BP 137/74; PULSE 74; RESP 18; TEMP 36.7; O2SAT 99; BMI 26.1
--- NOTE | 2022-05-06 15:21 | ECG_ITS ---
Test Reason : CHEST PAIN Blood Pressure : / mmHG Vent. Rate : 072 BPM Atrial Rate : 072 BPM P-R Int : 136 ms QRS Dur : 074 ms QT Int : 380 ms P-R-T Axes : 027 -18 008 degrees QTc Int : 416 ms Normal sinus rhythm Normal ECG When compared with ECG of 31-MAY-2020 17:31, No significant change was found Referred By: Generic ED Physician Electronically Signed By:WESLEY BRICENO MD
[2022-05-06 15:37] LABS: MANUAL DIFF FLAG NO
[2022-05-06 15:38] LABS: Basophils Percent Auto 0.6 % (0-2); Eosinophils Absolute Auto 0.1 X10*3/uL (0.0-0.4); Eosinophils Percent Auto 0.8 % (0-4); Hematocrit 34.6 % (37.0-47.0); Hemoglobin 11.4 g/dl (12.0-16.0); Imm Gran Abs Auto 0.01 X10*3/uL (0.00-0.03); Imm Gran Pct Auto 0.1 % (0.0-0.4); Lymphocytes Absolute Auto 2.9 X10*3/uL (1.2-4.9); Lymphocytes Percent Auto 39.8 % (20-40); Mean Corpuscular HGB Conc 32.9 g/dl (31.0-35.0); Mean Corpuscular Hemoglobin 27.1 pg (27.0-33.0); Mean Corpuscular Volume 82.4 fL (80.0-98.0); Mean Platelet Volume 8.8 fL (9.4-12.3); Monocytes Absolute Auto 0.6 X10*3/uL (0.1-1.2); Neutrophils Absolute Auto 3.7 x10*3/uL (2.0-8.3); Neutrophils Percent Auto 50.7 % (45-73); Platelet Count 387 X10*3/uL (160-400); Red Cell Distribution Width 13.4 % (11.0-16.0); White Blood Count 7.2 X10*3/uL (4.8-10.8)
[2022-05-06 15:50] LABS: Anion Gap 16 (12-20); Blood Urea Nitrogen 7 mg/dL (9-16); Calcium 9.5 mg/dL (8.4-10.2); Carbon Dioxide 25 mmol/L (22-29); Chloride 100 mmol/L (96-108); Creatinine Clr Calc Pharmacy 70.9; Estimated Glomerular Filt Rate > 60; Glucose Random 102 mg/dL (60-115); Potassium 3.8 mmol/L (3.3-5.1); Sodium 137 mmol/L (135-145)
[2022-05-06 15:57] LABS: Troponin-I High Sensitivity < 3.5 ng/L (<3.5-17.0)
[2022-05-06 20:29] VITALS: BP 147/84; PULSE 80; RESP 17; TEMP 36.9; O2SAT 100
--- NOTE | 2022-05-06 20:58 | ED_ITS ---
HPI - Chest Pain General Chief Complaint: Chest Pain Stated Complaint: pain in arm, numbness in hands Time Seen by Provider: 05/06/22 20:57 Source: patient and family Mode of arrival: ambulatory Limitations: no limitations History of Present Illness HPI narrative: 56 yo female with hx of DM, arthritis, hypothyroidism presents with L sided neck pain radiating around chest into L arm and shoulder causing her thumb and index finger to feel tingly. She states it hurts to move her arm. She woke up with this one day no known trauma. She has tried some tylenol as well as heat/rubbing. MD complaint: other (L sided neck/chest/shoulder arm pain) Onset (ago): day(s) (7) Timing of current episode: constant Prior episodes: No Onset: during rest Pain location: left chest (shoulder, neck, arm) Pain radiation: left arm Severity: severe Quality: other (spasming) Relieving factors: other (immobilization) Exacerbating factors: palpation and movement Context: other (woke up this way one day) Treatment prior to arrival: other (heat, massage, tylenol) Related Data Home Medications Medication Instructions Recorded Confirmed biotin 1 mg capsule 5,000 mg PO DAILY 08/05/20 08/05/20 cholecalciferol (vitamin D3) 25 25 mcg PO DAILY 08/05/20 11/02/21 mcg (1,000 unit) capsule levothyroxine 88 mcg capsule 88 mcg PO DAILY 08/05/20 11/02/21 multivitamin 1 tab PO DAILY 08/05/20 11/02/21 gabapentin 100 mg capsule 100 mg PO TID 11/02/21 11/02/21 hydrochlorothiazide 25 mg tablet 25 mg PO DAILY 11/02/21 11/02/21 losartan 100 mg tablet 100 mg PO DAILY 11/02/21 11/02/21 mecobalamin (vitamin B12) 1,000 1,000 mcg sublingual BEDTIME 11/02/21 11/02/21 mcg disintegrating tablet,sublingual metformin 1,000 mg tablet 1,000 mg PO BID 11/02/21 11/02/21 Previous Rx's Medication Instructions Recorded dexamethasone 1 mg tablet 1 mg PO ONCE #1 tab 11/02/21 cyclobenzaprine 10 mg tablet 10 mg PO TID PRN muscle spasm #14 05/06/22 tabs diclofenac sodium 1 % topical gel 2 g topical QID #100 grams 05/06/22 (Voltaren Arthritis Pain) morphine 15 mg immediate release 15 mg PO TID PRN pain #10 tabs 05/06/22 tablet prednisone 20 mg tablet 40 mg PO DAILY 4 days #8 tabs 05/06/22 Allergies Allergy/AdvReac Type Severity Reaction Status Date / Time ibuprofen Allergy Unknown stomach Verified 05/06/22 15:19 upset Review of Systems Review of Systems: Constitutional : No Weight loss, No Fever, No Chills ENT/Mouth : No sore throat, No Rhinorrhea Eyes: No Eye Pain, No Swelling Cardiovascular : pos Chest Pain, no SOB, no Dyspnea on Exertion, No Orthopnea, No Edema, No Palpitations Respiratory : No Cough, No Sputum Gastrointestinal : no Nausea, No Vomiting, No Diarrhea, No abdominal Pain, No Hematochezia, No Melena Genitourinary : No Dysuria, No Urinary Frequency Musculoskeletal : pos joint pain, pos Myalgias, No Joint Swelling Skin : No Skin Lesions, No rash Neuro : No Weakness, No Numbness, No Dizziness, No Headache Psych : No Anxiety/Panic, No Depression Heme/Lymph: No Bruising, No Lymphadenopathy Endocrine : No Polyuria, No Polydipsia All other systems reviewed and are negative [facility] Past Medical History Attestation statement: The following information was validated with the patient. Medical History Abnormal CT scan, gastrointestinal tract Adenoma of left adrenal gland B12 deficiency Diabetes mellitus, type 2 HTN (hypertension) Hypothyroidism Vitamin D deficiency Surgical History History of carpal tunnel release Hx of section Hx of tonsillectomy Family History Family History Father Cancer Diabetes Hypertension Mother Diabetes Social History Social History Alcohol intake: never Patient Tobacco Use Status: Never used Tobacco Use of substances other than those prescribed or required for medical reasons: No Advance Directives: No Advance Directives Information Provided: No Physical Exam Vital Signs: Vital Signs: Last Vital Signs Temp 98.5 F 05/06/22 20:29 Pulse 80 05/06/22 20:29 Resp 17 05/06/22 20:29 BP 147/84 H 05/06/22 20:29 Pulse Ox 100 05/06/22 20:29 O2 Del Method 05/06/22 20:29 BMI result Body Mass Index 26.1 Appearance: Alert. Oriented X3. No acute distress. Anxious Eyes: Pupils equal, round and reactive to light. ENT: Pharynx normal. Neck: + spurlings on L side, ttp on lateral aspect C4-C3, spasm L trapezius CVS: Normal heart rate and rhythm. Pulses normal. Chest wall: ttp along L chest reproduces pain Respiratory: No respiratory distress. Breath sounds normal. Abdomen: Soft and non-tender. Skin: Skin warm and dry. Normal skin color. Normal skin turgor. Extremities: No lower extremity edema. Neuro: Oriented X 3. No motor deficit. No sensory deficit. 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 Course Course Course Narrative: patient still with pain - IM dilaudid and PO prednisone ordered, did discuss risks with diabetes the patient reports tingling and decreased sensation to L anterior forearm to touch as well we she feels decreased sensation to the L 1st MCP joint area. Strength intact. feels better stable for DC - able to lift arm up and looks much better MDM - Chest Pain MDM Narrative Medical decision making narrative: 56 yo female with diabetes, hypothyroidism here with L sided neck pain radiating down into chest/shoulder and L arm causing radicular symptoms. She does have some parasthesias but no overt weakness and most symptoms are pain related. Will obtain basic labs and CT cspine. start on tylenol and valium. Symptoms x 7 days. Distal pulses intact. CP is MSK in nature and trop flat after 7 days of pain Lab Data Result diagrams: 05/06/22 15:31 05/06/22 15:31 Labs: Lab Results 05/06/22 05/06/22 05/06/22 Range/Units 15:31 15:31 15:31 WBC 7.2 (4.8-10.8) X10*3/uL RBC 4.20 (4.20-5.50) X10*6/uL Hgb 11.4 L (12.0-16.0) g/dl Hct 34.6 L (37.0-47.0) % MCV 82.4 (80.0-98.0) fL MCH 27.1 (27.0-33.0) pg MCHC 32.9 (31.0-35.0) g/dl RDW 13.4 (11.0-16.0) % Plt Count 387 (160-400) X10*3/uL MPV 8.8 L (9.4-12.3) fL Immature Gran % (Auto) 0.1 (0.0-0.4) % Neut % (Auto) 50.7 (45-73) % Lymph % (Auto) 39.8 (20-40) % [place] % (Auto) 8.0 (2-11) % Eos % (Auto) 0.8 (0-4) % Baso % (Auto) 0.6 (0-2) % Lymph # (Auto) 2.9 (1.2-4.9) X10*3/uL [place] # (Auto) 0.6 (0.1-1.2) X10*3/uL Eos # (Auto) 0.1 (0.0-0.4) X10*3/uL Baso # (Auto) 0.0 (0.0-0.2) X10*3/uL Abs Immat Gran (auto) 0.01 (0.00-0.03) X10*3/uL Absolute Neuts (auto) 3.7 (2.0-8.3) x10*3/uL Absolute Nucleated RBC 0.000 (0.0-0.012) X10*3/uL Nucleated RBC % (auto) 0.0 (0.0-0.2) /100WBC Sodium 137 (135-145) mmol/L Potassium 3.8 (3.3-5.1) mmol/L Chloride 100 (96-108) mmol/L Carbon Dioxide 25 (22-29) mmol/L Anion Gap 16 (12-20) BUN 7 L (9-16) mg/dL Creatinine 0.66 (0.5-1.4) mg/dL Estim Creat Clear Calc 70.9 Estimated GFR > 60 Random Glucose 102 (60-115) mg/dL Calcium 9.5 (8.4-10.2) mg/dL Troponin I High Sens < 3.5 (<3.5-17.0) ng/L ECG Data ECG #1: Attestation: I personally reviewed and interpreted this ECG as follows: ECG interpretation date: 05/06/22 ECG interpretation time: 21:30 Interpretation: Rate: 72 Rhythm: NSR [place]: left Normal P waves. Normal RICKEY. Normal QRS complex. Poor R wave progression ST T wave : non specific inf leads, no MARKUS qTC: normal prior studies: no change from 2019 The study has been interpreted contemporaneously by me. . Discharge Plan Discharge Clinical Impression: Degenerative disc disease, cervical, Cervical radiculopathy at C6 Patient Disposition: Home, Self-Care Instructions: Cervical Disc Herniation (ED), Cervical Radiculopathy (ED), Degenerative Disc Disease (ED) Additional Instructions: return to ED for any worsening symptoms or concerns YOU WILL NEED TO SEE YOUR DOCTOR ON MONDAY FOR MRI if no improvement - please also make appointment to touch base about your pain monitor blood sugars while on steroids (prednisone) FINDINGS: There is reversal of the normal cervical lordosis. No prevertebral soft tissue swelling. Progressive degenerative disc disease throughout most notable at C4-C5 and C5-C6. No fracture or subluxation. Limited detail but there is disc osteophyte complexes posteriorly at this level resulting in at least mild to moderate central canal narrowing. Please note the disc spaces are suboptimally assessed due to plane of scanning. The paraspinal soft tissues are within normal limits. Lung apices clear. CT/CT cervical spine wo IV con IMPRESSION: No acute findings. Progressive degenerative disc disease particularly within the mid cervical spine as above.? ? Fleischner guidelines were followed. Prescriptions: New cyclobenzaprine 10 mg tablet 10 mg PO TID PRN (Reason: muscle spasm) Qty: 14 0RF prednisone 20 mg tablet 40 mg PO DAILY 4 Days Qty: 8 0RF morphine 15 mg tablet 15 mg PO TID PRN (Reason: pain) Qty: 10 0RF Rx Instructions: partial fill okay; Partial Fill upon patient request. diclofenac sodium [Voltaren Arthritis Pain] 1 % gel 2 g topical QID Qty: 100 0RF Rx Instructions: apply to single elbow, wrist or hand; for hand includes palm/fingers/back of hand No Action biotin 1 mg capsule 5,000 mg PO DAILY levothyroxine 88 mcg capsule 88 mcg PO DAILY multivitamin Tablet 1 tab PO DAILY cholecalciferol (vitamin D3) 25 mcg (1,000 unit) capsule 25 mcg PO DAILY losartan 100 mg tablet 100 mg PO DAILY gabapentin 100 mg capsule 100 mg PO TID hydrochlorothiazide 25 mg tablet 25 mg PO DAILY metformin 1,000 mg tablet 1,000 mg PO BID mecobalamin (vitamin B12) 1,000 mcg tablet,disintegrating 1,000 mcg sublingual BEDTIME Rx Instructions: place tablet under tongue and allow to dissolve for at least30 secs before swallowing dexamethasone 1 mg tablet 1 mg PO ONCE Qty: 1 0RF Referrals: Leslie Lundy MD [Primary Care Provider] - 05/09/22 Stand Alone Forms: Work/School Release
[2022-05-06] MEDS: Acetaminophen 325 MG TABLET 650 MG PO (21:29)
[2022-05-06] MEDS: Lidocaine 4 % Patch ADH..PATCH 1 PATCH TRANSDERMA (21:30)
[2022-05-06] MEDS: diazePAM 2 MG TABLET 5 MG PO (21:30)
--- NOTE | 2022-05-06 21:37 | PC.NURSE ---
pt a&ox3, vss, pt reporting 10/10 pain in her left neck/shoulder/hand radiating to her left chest, worse w movement, medicated per provider order, pt pending CT scan.
[2022-05-06] MEDS: oxyCODONE HCl Immed Release 5 MG TABLET 10 MG PO (22:38)
[2022-05-06] MEDS: Ondansetron ODT 4 MG TAB.RAPDIS TRANSLINGU (22:38)
[2022-05-06] MEDS: predniSONE 20 MG TABLET 40 MG PO (23:40)
[2022-05-06] MEDS: HYDROmorphone HCl 2 MG/ML VIAL IM (23:40)
== END 2022-05-07 00:22 | disposition home or self-care (01) ==
PROVIDERS: Emergency Provider Emergency Medicine; PCP Internal Medicine
DX: M54.12 Radiculopathy, cervical region (principal); M54.2 Cervicalgia; R07.89 Other chest pain; Z79.899 Other long term (current) drug therapy
CPT/HCPCS: 36415; 71045; 72125; 80048; 84484; 85025; 93005; 96372; 99284; J1170

== ENCOUNTER 2022-05-17 08:00 | Outpatient (REF) | payer OTHER, SELFPAY ==
--- NOTE | ~2022-05-17 | MR_ITS ---
EXAMINATION: MR CERVICAL SPINE WITHOUT CONTRAST CLINICAL INFORMATION: 56-year-old with self-reported left arm numbness. Cervical radiculopathy. COMPARISON: 05/06/2022 CT. TECHNIQUE: MRI of the cervical spine was obtained using routine sequences without contrast. FINDINGS: ALIGNMENT: There is slight lordotic reversal centered at C4 which is less prominent than the previous CT. No spondylolisthesis or retrolisthesis. CRANIOCERVICAL JUNCTION/C1-C2 ARTICULATIONS: Intact and aligned. VISUALIZED INTRACRANIAL STRUCTURES: Within normal limits. VERTEBRAL BODIES: Vertebral body heights are well maintained. DISC SPACES AND ENDPLATES: Kuwm-lk-tsjtmtdx intervertebral disc space height loss at C3-C4 with Schmorl's nodes and mild spondylosis with disc desiccation. Mild disc space height loss at C4-C5 with disc desiccation and mild spondylosis. Moderate disc space height loss at C5-C6 with disc desiccation and minor spondylosis. BONE MARROW: No significant marrow-replacing process or bone marrow edema. C2-C3: Mild central disc osteophyte complex noted, with mild flattening of the ventral dural sac without cord impingement, with mild central canal stenosis noted. No significant DJD or neural foraminal stenosis. C3-C4: Posterior disc osteophyte complex noted, with effacement of the ventral dural sac, with mild ventral cord deformity and cwgu-th-txsrrijc central spinal canal stenosis. Mild facet arthrosis and uncinate process spurring noted with mild left-sided neural foraminal stenosis. C4-C5: Broad-based disc osteophyte complex asymmetric to the right with superimposed right paramedian disc protrusion, with effacement of the ventral dural sac, with moderate right-sided ventral cord deformity/impingement and nahd-dq-ooitnohh spinal canal stenosis asymmetric to the right. Mild facet arthrosis and uncovertebral spurring is noted with eecshewa-fj-xiijlz right-sided and zxup-ea-xxmtmnrh left-sided neural foraminal stenosis. C5-C6: Central to left paramedian extruded disc herniation noted, with wivp-cd-jtvyokzi ventral cord impingement asymmetric to the left and pzga-ye-cxupbuav spinal canal stenosis. There is also a right paramedian to subarticular disc herniation which may be encroaching on the ventral root of C6 on the right and narrowing the right lateral recess. There is facet arthropathy, right more than left and uncovertebral spurring with moderate right-sided and wizm-fd-wmugsimr left-sided neural foraminal stenosis. C6-C7: Broad-based central disc protrusion with mild flattening of the central dural sac without cord impingement or canal stenosis. Small perineural cyst on the right. No significant DJD or neural foraminal stenosis. C7-T1: No disc herniation or canal stenosis. No significant DJD or neural foraminal stenosis. T1-T2: No disc herniation or canal stenosis. No significant DJD or neural foraminal stenosis. SPINAL CORD: The cervical and visualized upper thoracic spinal cord is normal in signal intensity throughout, without focal lesion, edema or syrinx. EXTRACRANIAL SOFT TISSUES: The visualized extracranial head/neck soft tissues are unremarkable within the limitations of the study. MR/MR cervical spine wo con IMPRESSION: 1. Slight lordotic reversal in the upper cervical spine somewhat less prominent than on the previous exam with multilevel DDD and spondylosis as detailed above primarily between C3-C4 and C5-C6 inclusive. 2. Multilevel disc osteophyte complexes and disc herniations, with ventral cord impingement at C5-C6 and C4-C5 and ventral cord deformity at C3-C4 with multilevel oddf-gg-djprfkxi degrees of spinal canal stenosis as detailed by level above. 3. Mild degrees of DJD noted with moderate right-sided and eskv-sy-wwdegqpb left-sided neural foraminal stenosis at C5-C6. Cekskgwy-ys-yrsnyw right-sided and mdtk-ku-uwxsselc left-sided neural foraminal stenosis at C4-C5.
== END 2022-05-17 08:01 | disposition home or self-care (01) ==
LOC: HO.MRI 08:00
PROVIDERS: Visit Provider Internal Medicine
DX: M47.22 Other spondylosis with radiculopathy, cervical region (principal)
CPT/HCPCS: 72141

== ENCOUNTER 2022-06-10 23:35 | Emergency (ER) | payer OTHER, SELFPAY ==
--- NOTE | 2022-06-10 | ECG_ITS ---
Test Reason : sob Blood Pressure : / mmHG Vent. Rate : 095 BPM Atrial Rate : 095 BPM P-R Int : 112 ms QRS Dur : 064 ms QT Int : 340 ms P-R-T Axes : 050 -33 012 degrees QTc Int : 427 ms Normal sinus rhythm Left anterior fascicular block Nonspecific ST and T wave abnormality Possible Lateral infarct , age undetermined Abnormal ECG When compared with ECG of 06-MAY-2022 15:25, Borderline criteria for Lateral infarct are now Present Referred By: Generic ED Physician Electronically Signed By:WESLEY BRICENO MD
--- NOTE | ~2022-06-10 | XR_ITS ---
EXAMINATION: XR CHEST, 2 VIEWS CLINICAL INFORMATION: Dyspnea COMPARISON: 05/06/2022 TECHNIQUE: PA and lateral views of the chest were obtained. FINDINGS: Lungs are clear. No consolidation, pneumothorax, or pleural effusion. Cardiac and mediastinal contours are normal. Pulmonary vasculature is unremarkable. Trachea is midline. Degenerative disc disease in the thoracic spine. XR/XR chest 2V IMPRESSION: No acute cardiopulmonary findings.
[2022-06-11 00:07] LABS: Basophils Percent Auto 0.4 % (0-2); Eosinophils Absolute Auto 0.1 X10*3/uL (0.0-0.4); Eosinophils Percent Auto 0.8 % (0-4); Hematocrit 37.9 % (37.0-47.0); Hemoglobin 12.6 g/dl (12.0-16.0); Imm Gran Abs Auto 0.04 X10*3/uL (0.00-0.03); Imm Gran Pct Auto 0.4 % (0.0-0.4); Lymphocytes Absolute Auto 4.9 X10*3/uL (1.2-4.9); MANUAL DIFF FLAG NO; Mean Corpuscular HGB Conc 33.2 g/dl (31.0-35.0); Mean Corpuscular Hemoglobin 27.8 pg (27.0-33.0); Mean Corpuscular Volume 83.7 fL (80.0-98.0); Monocytes Absolute Auto 0.9 X10*3/uL (0.1-1.2); Monocytes Percent Auto 8.2 % (2-11); Neutrophils Absolute Auto 4.7 x10*3/uL (2.0-8.3); Neutrophils Percent Auto 44.2 % (45-73); Platelet Count 422 X10*3/uL (160-400); Red Blood Count 4.53 X10*6/uL (4.20-5.50); Red Cell Distribution Width 13.2 % (11.0-16.0); White Blood Count 10.6 X10*3/uL (4.8-10.8)
[2022-06-11 00:14] VITALS: BP 166/91; PULSE 99; RESP 18; TEMP 36.3; O2SAT 100; BMI 28.2
[2022-06-11 00:20] LABS: Influenza A Negative (Negative); Influenza B2 Negative (Negative)
[2022-06-11 00:31] LABS: Troponin-I High Sensitivity < 3.5 ng/L (<3.5-17.0)
[2022-06-11 00:34] LABS: Alanine Aminotransferase 15 U/L (0-31); Albumin Level 3.9 g/dL (3.5-5.0); Alkaline Phosphatase 74 U/L (39-117); Anion Gap 20 (12-20); Aspartate Amino Transferase 28 U/L (5-31); Bilirubin Total 0.3 mg/dL (0.0-1.0); Blood Urea Nitrogen 11 mg/dL (9-16); Calcium 9.5 mg/dL (8.4-10.2); Carbon Dioxide 19 mmol/L (22-29); Chloride 94 mmol/L (96-108); Creatinine Clr Calc Pharmacy 71.5; Estimated Glomerular Filt Rate > 60; Glucose Fasting 106 mg/dL (60-99); Potassium 4.3 mmol/L (3.3-5.1); Sodium 129 mmol/L (135-145); Total Protein 7.3 g/dL (6.5-8.0)
--- NOTE | 2022-06-11 01:45 | ED_ITS ---
HPI - SOB/Dyspnea General Chief Complaint: Dyspnea Stated Complaint: trouble breathing Time Seen by Provider: 06/11/22 01:44 Source: patient Mode of arrival: ambulatory Limitations: no limitations History of Present Illness HPI Narrative: Patient history of asthma, diabetes noticed sudden onset of shortness of breath while sitting on the couch feels chest tight came here saturating 100% at room air occasional cough no fever no chills Related Data Home Medications Medication Instructions Recorded Confirmed biotin 1 mg capsule 5,000 mg PO DAILY 08/05/20 08/05/20 cholecalciferol (vitamin D3) 25 25 mcg PO DAILY 08/05/20 11/02/21 mcg (1,000 unit) capsule levothyroxine 88 mcg capsule 88 mcg PO DAILY 08/05/20 11/02/21 multivitamin 1 tab PO DAILY 08/05/20 11/02/21 gabapentin 100 mg capsule 100 mg PO TID 11/02/21 11/02/21 hydrochlorothiazide 25 mg tablet 25 mg PO DAILY 11/02/21 11/02/21 losartan 100 mg tablet 100 mg PO DAILY 11/02/21 11/02/21 mecobalamin (vitamin B12) 1,000 1,000 mcg sublingual BEDTIME 11/02/21 11/02/21 mcg disintegrating tablet,sublingual metformin 1,000 mg tablet 1,000 mg PO BID 11/02/21 11/02/21 Previous Rx's Medication Instructions Recorded dexamethasone 1 mg tablet 1 mg PO ONCE #1 tab 11/02/21 cyclobenzaprine 10 mg tablet 10 mg PO TID PRN muscle spasm #14 05/06/22 tabs diclofenac sodium 1 % topical gel 2 g topical QID #100 grams 05/06/22 (Voltaren Arthritis Pain) morphine 15 mg immediate release 15 mg PO TID PRN pain #10 tabs 05/06/22 tablet prednisone 20 mg tablet 40 mg PO DAILY 4 days #8 tabs 05/06/22 albuterol sulfate 90 mcg/actuation 2 puff inhalation Q4-6H PRN 06/11/22 aerosol inhaler (ProAir HFA) shortness of breath or wheezing #8.5 grams Allergies Allergy/AdvReac Type Severity Reaction Status Date / Time ibuprofen Allergy Unknown stomach Verified 05/06/22 15:19 upset Review of Systems Review of Systems: Yes all other systems are reviewed and are negative PMFSH Past Medical History Medical History Abnormal CT scan, gastrointestinal tract Adenoma of left adrenal gland B12 deficiency Diabetes mellitus, type 2 HTN (hypertension) Hypothyroidism Vitamin D deficiency Surgical History History of carpal tunnel release Hx of section Hx of tonsillectomy Family History Family History Father Cancer Diabetes Hypertension Mother Diabetes Social History Social History Alcohol intake: never Patient Tobacco Use Status: Never used Tobacco Smoked in Last 30 Days: No Use of substances other than those prescribed or required for medical reasons: No Advance Directives: No Advance Directives Information Provided: No Physical Exam Vital Signs: Vital Signs: Last Vital Signs Temp 97.7 F 06/11/22 04:24 Pulse 84 06/11/22 04:24 Resp 16 06/11/22 04:24 BP 149/82 H 06/11/22 04:24 Pulse Ox 100 06/11/22 04:24 O2 Del Method 06/11/22 04:24 BMI result Body Mass Index 28.2 Appearance: Alert. Oriented X3. Anxious Eyes: PERRLA, No Nystagmus ENT: Pharynx normal. Oral Mucosa moist Neck: Normal inspection. Neck supple. CVS: Normal heart rate and rhythm. Pulses normal. Respiratory: No respiratory distress. Equal air entry bilateral, prolonged expiration Abdomen: Soft and nontender. Bowel sounds are present, no mass palpable, no CVA tenderness Skin: Skin warm and dry. Normal skin color. Normal skin turgor. Extremities: No lower extremity edema. No calf tenderness Neuro: Oriented X 3. No motor deficit. Medications Administered Discontinued Medications Generic Name Dose Route Start Last Admin Trade Name Freq PRN Reason Stop Dose Admin Albuterol/Ipratropium 3 ml 06/11/22 02:07 06/11/22 02:45 Albuterol/Iprat 2.5/0.5mg 3 Ml Ampul.Neb INHALE 06/11/22 02:08 3 ml ONCE ONE Administration MDM - SOB/Dyspnea MDM Narrative Medical decision making narrative: Patient history of asthma came with acute shortness of breath saturating 100% at room air had prolonged expiration chest x-ray negative for pneumothorax 2 sets of high sensitive troponin negative D-dimer negative for PE patient felt better after nebulizing treatment discharge patient home advised to continue nebulizing treatment at home Differential Diagnosis Differential diagnosis: Likely acute exacerbation of chronic obstructive airways disease, congestive heart failure, pneumonia, pulmonary embolism and pleural effusion Medical Records Attestation: I reviewed the patient's medical records. Lab Data Attestation: I reviewed the patient's lab results. Result diagrams: 06/11/22 00:02 06/11/22 00:02 Labs: Lab Results 06/11/22 06/11/22 06/11/22 Range/Units 00:02 00:02 00:02 WBC 10.6 (4.8-10.8) X10*3/uL RBC 4.53 (4.20-5.50) X10*6/uL Hgb 12.6 (12.0-16.0) g/dl Hct 37.9 (37.0-47.0) % MCV 83.7 (80.0-98.0) fL MCH 27.8 (27.0-33.0) pg MCHC 33.2 (31.0-35.0) g/dl RDW 13.2 (11.0-16.0) % Plt Count 422 H (160-400) X10*3/uL MPV 9.0 L (9.4-12.3) fL Immature Gran % (Auto) 0.4 (0.0-0.4) % Neut % (Auto) 44.2 L (45-73) % Lymph % (Auto) 46.0 H (20-40) % [place] % (Auto) 8.2 (2-11) % Eos % (Auto) 0.8 (0-4) % Baso % (Auto) 0.4 (0-2) % Lymph # (Auto) 4.9 (1.2-4.9) X10*3/uL [place] # (Auto) 0.9 (0.1-1.2) X10*3/uL Eos # (Auto) 0.1 (0.0-0.4) X10*3/uL Baso # (Auto) 0.0 (0.0-0.2) X10*3/uL Abs Immat Gran (auto) 0.04 H (0.00-0.03) X10*3/uL Absolute Neuts (auto) 4.7 (2.0-8.3) x10*3/uL Absolute Nucleated RBC 0.000 (0.0-0.012) X10*3/uL Nucleated RBC % (auto) 0.0 (0.0-0.2) /100WBC PT (10.0-13.1) SEC INR (0.9-1.1) D-Dimer High Sensitivty NG/ML Sodium 129 L (135-145) mmol/L Potassium 4.3 (3.3-5.1) mmol/L Chloride 94 L (96-108) mmol/L Carbon Dioxide 19 L (22-29) mmol/L Anion Gap 20 (12-20) BUN 11 D (9-16) mg/dL Creatinine 0.68 (0.5-1.4) mg/dL Estim Creat Clear Calc 71.5 Estimated GFR > 60 Fasting Glucose 106 H (60-99) mg/dL Calcium 9.5 (8.4-10.2) mg/dL Total Bilirubin 0.3 (0.0-1.0) mg/dL AST 28 D (5-31) U/L ALT 15 (0-31) U/L Alkaline Phosphatase 74 (39-117) U/L Troponin I High Sens < 3.5 (<3.5-17.0) ng/L Total Protein 7.3 (6.5-8.0) g/dL Albumin 3.9 (3.5-5.0) g/dL Influenza Type A (KANDI) (Negative) Influenza Type B (KANDI) (Negative) Influenza A & B Note 06/11/22 06/11/22 06/11/22 Range/Units 00:02 02:37 03:01 WBC (4.8-10.8) X10*3/uL RBC (4.20-5.50) X10*6/uL Hgb (12.0-16.0) g/dl Hct (37.0-47.0) % MCV (80.0-98.0) fL MCH (27.0-33.0) pg MCHC (31.0-35.0) g/dl RDW (11.0-16.0) % Plt Count (160-400) X10*3/uL MPV (9.4-12.3) fL Immature Gran % (Auto) (0.0-0.4) % Neut % (Auto) (45-73) % Lymph % (Auto) (20-40) % [place] % (Auto) (2-11) % Eos % (Auto) (0-4) % Baso % (Auto) (0-2) % Lymph # (Auto) (1.2-4.9) X10*3/uL [place] # (Auto) (0.1-1.2) X10*3/uL Eos # (Auto) (0.0-0.4) X10*3/uL Baso # (Auto) (0.0-0.2) X10*3/uL Abs Immat Gran (auto) (0.00-0.03) X10*3/uL Absolute Neuts (auto) (2.0-8.3) x10*3/uL Absolute Nucleated RBC (0.0-0.012) X10*3/uL Nucleated RBC % (auto) (0.0-0.2) /100WBC PT 11.9 (10.0-13.1) SEC INR 1.0 (0.9-1.1) D-Dimer High Sensitivty < 150 NG/ML Sodium (135-145) mmol/L Potassium (3.3-5.1) mmol/L Chloride (96-108) mmol/L Carbon Dioxide (22-29) mmol/L Anion Gap (12-20) BUN (9-16) mg/dL Creatinine (0.5-1.4) mg/dL Estim Creat Clear Calc Estimated GFR Fasting Glucose (60-99) mg/dL Calcium (8.4-10.2) mg/dL Total Bilirubin (0.0-1.0) mg/dL AST (5-31) U/L ALT (0-31) U/L Alkaline Phosphatase (39-117) U/L Troponin I High Sens < 3.5 (<3.5-17.0) ng/L Total Protein (6.5-8.0) g/dL Albumin (3.5-5.0) g/dL Influenza Type A (KANDI) Negative (Negative) Influenza Type B (KANDI) Negative (Negative) Influenza A & B Note See Note ECG Data Attestation: I personally reviewed and interpreted this ECG as follows: Interpretation: Normal sinus rhythm heart rate 95 beats per minute left axis deviation poor p rogression of R-waves anterior leads no acute ST T wave changes no acute ischemic Discharge Plan Discharge Clinical Impression: Asthma with exacerbation Patient Disposition: Home, Self-Care Instructions: Asthma (ED) Additional Instructions: Continue to use inhaler 2 puffs every 4-6 hours as needed Follow with PCP if any concerns Report to the ER if shortness of breath continues Prescriptions: New albuterol sulfate [ProAir HFA] 90 mcg/actuation HFA aerosol inhaler 2 puff inhalation Q4-6H PRN (Reason: shortness of breath or wheezing) Qty: 8.5 0RF No Action cyclobenzaprine 10 mg tablet 10 mg PO TID PRN (Reason: muscle spasm) Qty: 14 0RF prednisone 20 mg tablet 40 mg PO DAILY 4 Days Qty: 8 0RF morphine 15 mg tablet 15 mg PO TID PRN (Reason: pain) Qty: 10 0RF Rx Instructions: partial fill okay; Partial Fill upon patient request. diclofenac sodium [Voltaren Arthritis Pain] 1 % gel 2 g topical QID Qty: 100 0RF Rx Instructions: apply to single elbow, wrist or hand; for hand includes palm/fingers/back of hand biotin 1 mg capsule 5,000 mg PO DAILY levothyroxine 88 mcg capsule 88 mcg PO DAILY multivitamin Tablet 1 tab PO DAILY cholecalciferol (vitamin D3) 25 mcg (1,000 unit) capsule 25 mcg PO DAILY losartan 100 mg tablet 100 mg PO DAILY gabapentin 100 mg capsule 100 mg PO TID hydrochlorothiazide 25 mg tablet 25 mg PO DAILY metformin 1,000 mg tablet 1,000 mg PO BID mecobalamin (vitamin B12) 1,000 mcg tablet,disintegrating 1,000 mcg sublingual BEDTIME Rx Instructions: place tablet under tongue and allow to dissolve for at least30 secs before swallowing dexamethasone 1 mg tablet 1 mg PO ONCE Qty: 1 0RF Interventions: ED Discharge Assessment Last Done: 06/11/22 05:03 Discharge Date/Time: 06/11/22 05:05
[2022-06-11 02:22] VITALS: BP 149/51; PULSE 88; RESP 20; TEMP 36.4; O2SAT 98
[2022-06-11] MEDS: Albuterol/Iprat 2.5/0.5MG 3 ML AMPUL.NEB INHALE (02:45)
[2022-06-11 02:46] VITALS: PULSE 89; RESP 18; O2SAT 100
[2022-06-11 03:11] LABS: Prothrombin Time 11.9 SEC (10.0-13.1)
[2022-06-11 03:12] LABS: Troponin-I High Sensitivity < 3.5 ng/L (<3.5-17.0)
[2022-06-11 03:20] LABS: D Dimer High Sensitivity < 150 NG/ML
[2022-06-11 04:24] VITALS: BP 149/82; PULSE 84; RESP 16; TEMP 36.5; O2SAT 100
== END 2022-06-11 05:05 | disposition home or self-care (01) ==
PROVIDERS: Emergency Provider Internal Medicine; PCP Internal Medicine
DX: J45.901 Unspecified asthma with (acute) exacerbation (principal); E11.9 Type 2 diabetes mellitus without complications; I10 Essential (primary) hypertension; Z79.84 Long term (current) use of oral hypoglycemic drugs; Z79.899 Other long term (current) drug therapy
CPT/HCPCS: 36415; 71046; 80053; 84484; 85025; 85379; 85610; 87502; 93005; 94640; 99284; 99285

== ENCOUNTER 2022-07-06 11:40 | Outpatient (REF) | payer OTHER, SELFPAY ==
[2022-07-06 13:54] LABS: MANUAL DIFF FLAG NO
[2022-07-06 14:00] LABS: Basophils Percent Auto 0.4 % (0-2); Eosinophils Percent Auto 0.6 % (0-4); Hematocrit 40.6 % (37.0-47.0); Hemoglobin 13.3 g/dl (12.0-16.0); Imm Gran Abs Auto 0.01 X10*3/uL (0.00-0.03); Imm Gran Pct Auto 0.1 % (0.0-0.4); Lymphocytes Absolute Auto 2.6 X10*3/uL (1.2-4.9); Mean Corpuscular HGB Conc 32.8 g/dl (31.0-35.0); Mean Corpuscular Hemoglobin 27.4 pg (27.0-33.0); Mean Corpuscular Volume 83.5 fL (80.0-98.0); Mean Platelet Volume 9.5 fL (9.4-12.3); Monocytes Absolute Auto 0.5 X10*3/uL (0.1-1.2); Monocytes Percent Auto 6.4 % (2-11); Neutrophils Percent Auto 56.5 % (45-73); Platelet Count 412 X10*3/uL (160-400); Red Blood Count 4.86 X10*6/uL (4.20-5.50); White Blood Count 7.2 X10*3/uL (4.8-10.8)
[2022-07-06 14:40] LABS: Anion Gap 17 (12-20); Blood Urea Nitrogen 8 mg/dL (9-16); Calcium 9.8 mg/dL (8.4-10.2); Carbon Dioxide 24 mmol/L (22-29); Chloride 100 mmol/L (96-108); Estimated Glomerular Filt Rate > 60; Glucose Random 101 mg/dL (60-115); Potassium 3.9 mmol/L (3.3-5.1); Sodium 137 mmol/L (135-145)
== END 2022-07-06 11:41 | disposition home or self-care (01) ==
LOC: HO.10HDL 11:40
PROVIDERS: Visit Provider Orthopaedic Surgery
DX: Z01.812 Encounter for preprocedural laboratory examination (principal)
CPT/HCPCS: 36415; 80048; 85025

== ENCOUNTER 2022-09-05 11:17 | Outpatient (REF) | payer OTHER, SELFPAY ==
[2022-09-05 13:22] LABS: MANUAL DIFF FLAG NO
[2022-09-05 13:29] LABS: Basophils Percent Auto 0.4 % (0-2); Eosinophils Absolute Auto 0.1 X10*3/uL (0.0-0.4); Eosinophils Percent Auto 0.9 % (0-4); Hematocrit 38.8 % (37.0-47.0); Hemoglobin 12.4 g/dl (12.0-16.0); Imm Gran Abs Auto 0.02 X10*3/uL (0.00-0.03); Imm Gran Pct Auto 0.3 % (0.0-0.4); Lymphocytes Absolute Auto 2.8 X10*3/uL (1.2-4.9); Lymphocytes Percent Auto 34.9 % (20-40); Mean Corpuscular Hemoglobin 27.3 pg (27.0-33.0); Mean Corpuscular Volume 85.5 fL (80.0-98.0); Mean Platelet Volume 9.7 fL (9.4-12.3); Monocytes Absolute Auto 0.5 X10*3/uL (0.1-1.2); Monocytes Percent Auto 6.7 % (2-11); Neutrophils Absolute Auto 4.5 x10*3/uL (2.0-8.3); Neutrophils Percent Auto 56.8 % (45-73); Platelet Count 387 X10*3/uL (160-400); Red Blood Count 4.54 X10*6/uL (4.20-5.50); White Blood Count 7.9 X10*3/uL (4.8-10.8)
[2022-09-05 14:02] LABS: Anion Gap 12 (12-20); Blood Urea Nitrogen 8 mg/dL (9-16); Calcium 9.6 mg/dL (8.4-10.2); Carbon Dioxide 27 mmol/L (22-29); Chloride 103 mmol/L (96-108); Estimated Glomerular Filt Rate > 60; Glucose Random 94 mg/dL (60-115); Potassium 3.7 mmol/L (3.3-5.1); Sodium 138 mmol/L (135-145)
== END 2022-09-05 11:18 | disposition home or self-care (01) ==
LOC: HO.10HDL 11:17
PROVIDERS: Visit Provider Orthopaedic Surgery
DX: Z01.812 Encounter for preprocedural laboratory examination (principal); M17.10 Unilateral primary osteoarthritis, unspecified knee
CPT/HCPCS: 36415; 80048; 85025

== ENCOUNTER → 2022-09-22 15:07 | Outpatient (BNVA) | payer OTHER, SELFPAY | PROVIDERS: PCP Internal Medicine; Visit Provider Internal Medicine | DX: J45.909 Unspecified asthma, uncomplicated (principal); Z79.899 Other long term (current) drug therapy | CPT/HCPCS: 99202 ==

== ENCOUNTER → 2022-09-29 10:15 | Outpatient (BNVA) | payer OTHER, SELFPAY | PROVIDERS: PCP Internal Medicine; Visit Provider Physician Assistant ==

== ENCOUNTER 2022-10-05 06:12 | Day surgery (SDC) | payer OTHER, SELFPAY ==
[2022-09-14 12:05] VITALS: BP 129/87; PULSE 78; RESP 16; O2SAT 99; BMI 27.1
[2022-09-14 15:41] LABS: MRSA Nasal PCR NEGATIVE (Negative); SA Nasal PCR NEGATIVE (Negative)
--- NOTE | 2022-10-04 10:58 | HO.ANESPROP2 ---
Documented by User: Mamta Garcia NP 10/04/22 11:02 HPI - Anesthesia Eval Consult details Narrative: 57yo F for Left Knee Replacement Total PCP cleared Pulmo cleared PMFSH Active Problems Active Problems: All Active Problems (Updated 09/22/22 @ 15:57 by Felecia Serna MD) Asthma (Acute) Allergic rhinitis (Acute) Osteoarthritis of patellofemoral joint (Acute) Locked knee (Acute) Diabetes mellitus (Acute) H/O gastric bypass (Acute) Abnormal CT scan, gastrointestinal tract (Acute) Vitamin D deficiency (Acute) Hypothyroidism (Acute) Adenoma of left adrenal gland (Acute) Past Medical History Medical History Abnormal CT scan, gastrointestinal tract Adenoma of left adrenal gland Allergic rhinitis Asthma Asthma B12 deficiency Degenerative, intervertebral disc, cervical Diabetes mellitus, type 2 HTN (hypertension) Hypothyroidism Seasonal allergies Strict vegetarian diet Vitamin D deficiency Family History Family History Father Cancer Diabetes Hypertension Mother Diabetes Surgical History Surgical History History of carpal tunnel release Hx of section Hx of colonoscopy Hx of tonsillectomy Social History Social History Are you a primary respiratory care practitioner to a significant other at home: No Do you presently have visiting nurse or other home services: No Alcohol intake: never Patient Tobacco Use Status: Never used Tobacco Meds Allergies Allergy/AdvReac Type Severity Reaction Status Date / Time ibuprofen Allergy Severe stomach Verified 09/29/22 10:23 upset aspirin Allergy Unknown Gastrointestinal Verified 09/29/22 10:23 Upset lisinopril AdvReac Cough Verified 09/30/22 09:01 Home Medications Medication Instructions Recorded Confirmed Last Taken Type cholecalciferol (vitamin D3) 25 25 mcg PO DAILY 08/05/20 06/29/22 Unknown History mcg (1,000 unit) capsule levothyroxine 88 mcg capsule 88 mcg PO DAILY 08/05/20 09/14/22 Unknown History multivitamin 1 tab PO DAILY 08/05/20 06/29/22 Unknown History gabapentin 100 mg capsule 100 mg PO BEDTIME 11/02/21 09/14/22 Unknown History hydrochlorothiazide 25 mg tablet 25 mg PO DAILY 11/02/21 09/14/22 Unknown History losartan 100 mg tablet 100 mg PO DAILY 11/02/21 09/14/22 Unknown History metformin 1,000 mg tablet 1,000 mg PO BID 11/02/21 09/14/22 Unknown History cyanocobalamin (vitamin B-12) 1 ml IM QMONTH 09/14/22 09/14/22 Unknown History 1,000 mcg/mL injection solution loratadine 10 mg tablet 10 mg PO DAILY 09/14/22 09/14/22 Unknown History fluticasone propionate 110 2 puff inhalation BID 09/26/22 09/26/22 Unknown History mcg/actuation HFA aerosol inhaler Exam Exam Date and Time: October 04, 2022 1058 Height,Weight and Vital Signs: Height 4 ft 10 in Weight 58.967 kg Last Vital Signs Pulse 78 09/14/22 12:05 Resp 16 09/14/22 12:05 BP 129/87 09/14/22 12:05 Pulse Ox 99 09/14/22 12:05 O2 Del Method 09/14/22 12:05 Pertinent Lab Results Pertinent Lab Results: Laboratory Tests 09/14/22 12:30 Nasal Screen MRSA (PCR) NEGATIVE Nasal S. aureus Screen NEGATIVE Nasal MRSA/S.aureus Interp SEE NOTE Laboratory Tests 09/05/22 09/05/22 11:20 11:20 WBC 7.9 Hgb 12.4 Hct 38.8 Plt Count 387 Sodium 138 Potassium 3.7 Chloride 103 Carbon Dioxide 27 BUN 8 L Creatinine 0.65 Narrative Narrative: EKG 05/2022 Vent. Rate : 095 BPM ? ? Atrial Rate : 095 BPM ?? P-R Int : 112 ms? QRS Dur : 064 ms ? ? QT Int : 340 ms ? ? ? P-R-T Axes : 050 -33 012 degrees ?? QTc Int : 427 ms ? Normal sinus rhythm Left anterior fascicular block Nonspecific ST and T wave abnormality ? Possible Lateral infarct , age undetermined Abnormal ECG When compared with ECG of 06-MAY-2022 15:25, Borderline criteria for Lateral infarct are now Present Assessment and Plan Assessment Anesthesia Assessment: Chart Reviewed Documented by User: Kuldeep Guthrie MD 10/05/22 07:27 [facility] Past Medical History Medical History Abnormal CT scan, gastrointestinal tract Adenoma of left adrenal gland Allergic rhinitis Asthma Asthma B12 deficiency Degenerative, intervertebral disc, cervical Diabetes mellitus, type 2 HTN (hypertension) Hypothyroidism Seasonal allergies Strict vegetarian diet Vitamin D deficiency Family History Family History Father Cancer Diabetes Hypertension Mother Diabetes Family history of problems with anesthesia: No Surgical History Surgical History History of carpal tunnel release Hx of section Hx of colonoscopy Hx of tonsillectomy History of Problems with Anesthesia: No Social History Social History Are you a primary respiratory care practitioner to a significant other at home: No Do you presently have visiting nurse or other home services: No Alcohol intake: never Patient Tobacco Use Status: Never used Tobacco Meds Allergies Allergy/AdvReac Type Severity Reaction Status Date / Time ibuprofen Allergy Severe stomach Verified 09/29/22 10:23 upset aspirin Allergy Unknown Gastrointestinal Verified 09/29/22 10:23 Upset lisinopril AdvReac Cough Verified 09/30/22 09:01 Home Medications Medication Instructions Recorded Confirmed Last Taken Type cholecalciferol (vitamin D3) 25 25 mcg PO DAILY 08/05/20 06/29/22 Unknown History mcg (1,000 unit) capsule levothyroxine 88 mcg capsule 88 mcg PO DAILY 08/05/20 09/14/22 Unknown History multivitamin 1 tab PO DAILY 08/05/20 06/29/22 Unknown History gabapentin 100 mg capsule 100 mg PO BEDTIME 11/02/21 09/14/22 Unknown History hydrochlorothiazide 25 mg tablet 25 mg PO DAILY 11/02/21 09/14/22 Unknown History losartan 100 mg tablet 100 mg PO DAILY 11/02/21 09/14/22 Unknown History metformin 1,000 mg tablet 1,000 mg PO BID 11/02/21 09/14/22 Unknown History cyanocobalamin (vitamin B-12) 1 ml IM QMONTH 09/14/22 09/14/22 Unknown History 1,000 mcg/mL injection solution loratadine 10 mg tablet 10 mg PO DAILY 09/14/22 09/14/22 Unknown History fluticasone propionate 110 2 puff inhalation BID 09/26/22 09/26/22 Unknown History mcg/actuation HFA aerosol inhaler Exam Airway Mallampati Class: II TM Dist: >3cm Neck ROM: Full Heart: rrr Lungs: cta Assessment and Plan Assessment Anesthesia Assessment: Anesthesia Plan Discussed and Chart Reviewed Final Anesthetic Review Family History of Problems with Anesthesia: No History of Problems with Anesthesia: No NPO: Yes ASA Class: II Final Preanesthetic Review: No Changes in Pt Med Stat, Meds/Allgs Chart Reviewed, Consent Obtained/Reviewed and Anes Risks/Benef Reviewed Patient Risk: Intermediate Procedure Risk: Intermediate Anesthetic Plan Anesthetic Plan: Spinal Disposition: Standard PACU
[2022-10-05] VITALS (14 sets, daily range): BP systolic 116–171; BP diastolic 61–82; PULSE 68–99; RESP 12–18; TEMP 36.2–37.2; O2SAT 98–100
--- NOTE | ~2022-10-05 | XR_ITS ---
EXAMINATION: XR KNEE, LEFT CLINICAL INFORMATION: Status post left TKA COMPARISON: None TECHNIQUE: Four views of the left knee. FINDINGS: There is a total left knee arthroplasty with prosthetic components in satisfactory alignment. Immediate postoperative changes are noted. XR/XR knee LT 2V IMPRESSION: Status left total knee arthroplasty with prosthetic components in satisfactory alignment.
[2022-10-05 06:46] LABS: COVID-19 Test Negative (Negative); IDNOW Serial# 6674DD1D
[2022-10-05 07:05] LABS: Hematocrit 36.5 % (37.0-47.0); Hemoglobin 12.2 g/dl (12.0-16.0)
[2022-10-05] MEDS: Lactated Ringers 1,000 ML 100 ML IVCONT ×3 (07:25→22:04)
[2022-10-05 07:32] LABS: Glucose, Whole Blood 107 mg/dL (60-115)
--- NOTE | 2022-10-05 07:37 | MHC.SHP ---
Pre-Procedural Eval Section A Date of Service: 10/05/22 The patient is an INPATIENT: No Changes since office visit: No Cold of Flu in the past 2 weeks, No New Medical Problems, No Changes in Medication and No Patient answered all questions The History & Physical has been completed within 30 days and I have reviewed it.: Yes Section B Chief Complaint: Unilateral primary osteoarthritis, left knee Allergies: Allergies Allergy/AdvReac Type Severity Reaction Status Date / Time ibuprofen Allergy Severe stomach Verified 09/29/22 10:23 upset aspirin Allergy Unknown Gastrointestinal Verified 09/29/22 10:23 Upset lisinopril AdvReac Cough Verified 09/30/22 09:01 Plan I have reviewed the history and physical and performed a pertinent physical examination on my patient. No changes have occurred unless specified. Time Spent With Patient Time: Total time managing care of this patient today ____ minutes.
--- NOTE | 2022-10-05 09:37 | PM.OP ---
Brief Operative Note Date of Service: 10/05/22 Pre-op diagnosis: Left knee OA Post-op diagnosis: same Procedure: Left TKA Implants: [place] [employer] press fit /29a Surgeon: Allen Francis MD Anesthesia: regional and spinal Was an Loan Coordinator used for this Procedure?: Yes Loan Coordinator: Enedina Bain Estimated blood loss (mL): 150 IV fluids (mL): 1,000 Pathology: other Condition: stable Disposition: PACU
[2022-10-05] MEDS: oxyCODONE HCl Immed Release 5 MG TABLET PO (12:15)
--- NOTE | 2022-10-05 12:31 | HO.PM.IMCN ---
History of Present Illness Data of Consult Service Date: 10/05/22 Requesting physician: Enedina Bain Primary Care Provider: Leslie Lundy MD [facility] Reason for consult: medical management 57-year-old female with history of mild persistent asthma, [id number] type 2 diabetes, hypothyroidism, hypertension admitted to Orthopedic surgery for management osteoarthritis of the left knee s/p left TKA with consult placed to hospital service for medical management.Pt tearful, reports 10/10 pain diffusely of the knee. No other complaints at this time. No etoh use, cigarette smoking, or drug use. Pt reports she is vegetarian. Review of Systems Review of Systems: Yes all other systems are reviewed and are negative PMFSH Medical History Abnormal CT scan, gastrointestinal tract Adenoma of left adrenal gland Allergic rhinitis Asthma Asthma B12 deficiency Degenerative, intervertebral disc, cervical Diabetes mellitus, type 2 HTN (hypertension) Hypothyroidism Seasonal allergies Strict vegetarian diet Vitamin D deficiency Family History Father Cancer Diabetes Hypertension Mother Diabetes Surgical History History of carpal tunnel release Hx of section Hx of colonoscopy Hx of tonsillectomy Social History Are you a primary ocular care aide to a significant other at home: No Do you presently have visiting nurse or other home services: No Alcohol intake: never Patient Tobacco Use Status: Never used Tobacco Use of substances other than those prescribed or required for medical reasons: No Have you been hit, kicked, punched, or otherwise hurt by someone within the past year? If so, by whom?: No Spiritual Healthcare Practices: none Sabianism Healthcare Practices: none Cultural Healthcare Practices: none Are you DNR?: No Advance Directives: No Advance Directives Information Provided: Yes Advance Directives on File: No Recently lost weight without trying: No Nutrition Risks: No Nutritional Risk Meds Allergies Allergy/AdvReac Type Severity Reaction Status Date / Time ibuprofen Allergy Severe stomach Verified 10/05/22 07:41 upset aspirin Allergy Unknown Gastrointestinal Verified 10/05/22 07:41 Upset lisinopril AdvReac Cough Verified 10/05/22 07:41 Active Medications: Current Medications Acetaminophen (Acetaminophen 325 Mg Tablet) 650 mg PO Q6H PRN PRN Reason: Pain, Mild (Pain Scale 1-3) Albuterol Sulfate (Albuterol Sulfate 90 Mcg 8 Gm Inhaler) 2 puff INHALE Q4H PRN PRN Reason: shortness of breath or wheezing Celecoxib (Celecoxib 200 Mg Capsule) 200 mg PO BID [facility] Cyanocobalamin (Cyanocobalamin (Vitamin B-12) 1,000 Mcg/Ml Vial) mcg IM QMONTH [facility] Docusate Sodium (Docusate Sodium 100 Mg Capsule) 100 mg PO BID [facility] Gabapentin (Gabapentin 100 Mg Capsule) 100 mg PO BEDTIME [facility] Hydrochlorothiazide (Hydrochlorothiazide 25 Mg Tablet) 25 mg PO DAILY [facility]; Protocol Hydromorphone HCl (Hydromorphone Hcl 0.5 Mg/0.5 Ml Syringe) 0.25 mg IVPUSH Q4H PRN; Protocol PRN Reason: Pain, Severe (Pain Scale 7-10) Lactated Ringer's (Lr) 1,000 mls @ 100 mls/hr IVCONT .Q10H [facility] Last Admin: 10/05/22 07:25 Dose: 100 mls/hr Lactated Ringer's (Lr) 1,000 mls @ 100 mls/hr IVCONT .Q10H [facility] Cefazolin Sodium/Dextrose (Ancef) 2 gm in 50 mls @ 100 mls/hr IV POSTOP ONE Stop: 10/05/22 14:29 Levothyroxine Sodium (Levothyroxine Sodium 88 Mcg Tablet) 88 mcg PO DAILY [facility] Loratadine (Loratadine 10 Mg Tablet) 10 mg PO DAILY [facility] Losartan Potassium (Losartan Potassium 50 Mg Tablet) 100 mg PO DAILY [facility]; Protocol Metformin HCl (Metformin Hcl 1,000 Mg Tablet) 1,000 mg PO BID [facility] Non-Formulary Medication (Fluticasone Propionate) 2 puff INHALE BID [facility] Ondansetron HCl (Ondansetron Hcl 4 Mg/2 Ml Vial) 4 mg IVPUSH Q8H PRN PRN Reason: Nausea and Vomiting Oxycodone HCl (Oxycodone Hcl Immed Release 5 Mg Tablet) 5 mg PO Q4H PRN PRN Reason: Pain, Moderate (Pain Scale 4-6 Oxycodone HCl (Oxycodone Hcl Er 10 Mg Tab.Er.12h) 10 mg PO BID [facility] Sodium Chloride (0.9 % Sodium Chloride Flush 3 Ml Syringe) 3 ml IVFLUSH QSHIFT [facility] Home Medications Medication Instructions Recorded Confirmed Last Taken Type cholecalciferol (vitamin D3) 25 25 mcg PO DAILY 08/05/20 06/29/22 Unknown History mcg (1,000 unit) capsule multivitamin 1 tab PO DAILY 08/05/20 06/29/22 Unknown History gabapentin 100 mg capsule 100 mg PO BEDTIME 11/02/21 09/14/22 Unknown History hydrochlorothiazide 25 mg tablet 25 mg PO DAILY 11/02/21 09/14/22 Unknown History losartan 100 mg tablet 100 mg PO DAILY 11/02/21 09/14/22 Unknown History metformin 1,000 mg tablet 1,000 mg PO BID 11/02/21 09/14/22 Unknown History cyanocobalamin (vitamin B-12) 1 ml IM QMONTH 09/14/22 09/14/22 Unknown History 1,000 mcg/mL injection solution loratadine 10 mg tablet 10 mg PO DAILY 09/14/22 09/14/22 10/05/22 History fluticasone propionate 110 2 puff inhalation BID 09/26/22 09/26/22 Unknown History mcg/actuation HFA aerosol inhaler gabapentin 300 mg capsule 1 cap PO TID 10/05/22 Unknown History levothyroxine 50 mcg tablet 1 tab PO DAILY 10/05/22 Unknown History levothyroxine 88 mcg tablet 1 tab PO DAILY 10/05/22 10/05/22 Unknown History Physical Exam Vital Signs and Narrative: Vital Signs: Last Vital Signs Temp 98.0 F 10/05/22 11:42 Pulse 86 10/05/22 11:42 Resp 18 10/05/22 11:42 BP 123/62 10/05/22 11:42 Pulse Ox 100 10/05/22 11:42 O2 Del Method 10/05/22 11:42 BMI result Body Mass Index 27.1 Constitutional - Awake and Alert, No apparent distress Eyes - PERRLA, EOMI Cardiovascular - S1S2, RRR, No edema Respiratory - Normal lung expansion, Normal respiratory effort, No respiratory distress, CTA bilaterally Gastrointestinal - NT / ND; +BS; No rebound or guarding Extremities - no calf tenderness bilaterally, no swelling Musculoskeletal - s/p left tka, post-op bandage in place Skin - Warm/Dry Neurological - Alert & oriented x3 Psychological - Appropriate affect Results Labs 10/05/22 06:51 Labs: Laboratory Results - last 24 hr 10/05/22 10/05/22 10/05/22 06:20 06:49 06:51 POC Glucose 107 COVID-19 ([facility]) Negative COVID-19 Clin Com See Note Blood Type O Positive Antibody Screen NEGATIVE Imaging Radiologist's Impressions: Impressions Knee X-Ray 10/05/22 10:26 IMPRESSION: Status left total knee arthroplasty with prosthetic components in satisfactory alignment. Assessment and Plan (1) Osteoarthritis of patellofemoral joint: Status: Acute Plan 57-year-old female with history of mild persistent asthma, [id number] type 2 diabetes, hypothyroidism, hypertension admitted to Orthopedic surgery for management osteoarthritis of the left knee s/p left TKA with consult placed to hospital service for medical management. # osteoarthritis left knee s/p left TKA -pod 0 -plan per General surgery # mild persistent asthma-without acute exacerbation -continue maintenance inhalers -albuterol p.r.n. # [id number] type 2 diabetes-controlled -POC glucose -Humalog on sliding scale p.r.n. for hyperglycemia -diabetic/vegetarian diet -can continue metformin # hypothyroidism -continue levothyroxine # hypertension- blood pressure reasonably controlled -resume antihypertensives in the a.m. Thank you for allowing me to participate in this consult. Signing off at this time. Please do not hesitate to call for further questions. Time Spent With Patient Time: Total time managing care of this patient today ____ minutes.
[2022-10-05] MEDS: 0.9 % Sodium Chloride Flush 3 ML SYRINGE IVFLUSH ×2 (12:36→22:02)
[2022-10-05] MEDS: HYDROmorphone HCl 0.5 MG/0.5 ML SYRINGE 0.25 MG IVPUSH (12:54)
[2022-10-05 13:15] LABS: Glucose, Whole Blood 101 mg/dL (60-115)
[2022-10-05] MEDS: ceFAZolin Sodium/Dextrose,Iso 2 GM/50 ML PIGGYBACK IV (14:14)
[2022-10-05] MEDS: oxyCODONE HCl Immed Release 5 MG TABLET 10 MG PO ×2 (16:03→20:00)
[2022-10-05] MEDS: HYDROmorphone HCl 0.5 MG/0.5 ML SYRINGE IVPUSH ×2 (16:57→22:02)
[2022-10-05 17:13] LABS: Glucose, Whole Blood 99 mg/dL (60-115)
[2022-10-05] MEDS: oxyCODONE HCl ER 10 MG TAB.ER.12H PO (20:00)
[2022-10-05] MEDS: Acetaminophen 325 MG TABLET 650 MG PO (20:01)
[2022-10-05] MEDS: Celecoxib 200 MG CAPSULE PO (20:01)
[2022-10-05] MEDS: Docusate Sodium 100 MG CAPSULE PO (20:01)
[2022-10-05 20:45] LABS: Glucose, Whole Blood 102 mg/dL (60-115)
[2022-10-05] MEDS: metFORMIN HCl 1,000 MG TABLET 1000 MG PO (21:04)
[2022-10-06] MEDS: oxyCODONE HCl Immed Release 5 MG TABLET 10 MG PO ×5 (01:08→21:51)
[2022-10-06] MEDS: HYDROmorphone HCl 0.5 MG/0.5 ML SYRINGE IVPUSH ×5 (02:06→18:33)
[2022-10-06] MEDS: Ketorolac Tromethamine 30 MG/ML VIAL IVPUSH (03:11)
[2022-10-06] MEDS: Acetaminophen 1,000 MG/100 ML PIGGYBACK 400 MG IV ×3 (03:12→15:25)
[2022-10-06 03:51] VITALS: BP 117/63; PULSE 91; RESP 18; TEMP 36.1; O2SAT 97
[2022-10-06] MEDS: Levothyroxine Sodium 50 MCG TABLET PO (05:11)
--- NOTE | 2022-10-06 05:16 | PC.NURSE ---
pt c/o 10/10 pain at 0230. 10 mg oxycodone given at 0108 with no relief, 0.5 mg IV dilaudid given at 0206 with no relief. [place] text sent to [facility] [place]. One time dose of toradol ordered and given at 0311, IV tylenol ordered and given at 0312. At O355, pt still c/o of 10/10 pain. [facility] [place] made aware.
[2022-10-06 06:33] LABS: MANUAL DIFF FLAG NO
[2022-10-06 06:37] LABS: Basophils Absolute Auto 0.1 X10*3/uL (0.0-0.2); Basophils Percent Auto 0.6 % (0-2); Eosinophils Absolute Auto 0.1 X10*3/uL (0.0-0.4); Eosinophils Percent Auto 1.2 % (0-4); Hematocrit 29.5 % (37.0-47.0); Hemoglobin 9.7 g/dl (12.0-16.0); Imm Gran Abs Auto 0.03 X10*3/uL (0.00-0.03); Imm Gran Pct Auto 0.4 % (0.0-0.4); Lymphocytes Absolute Auto 2.1 X10*3/uL (1.2-4.9); Lymphocytes Percent Auto 24.7 % (20-40); Mean Corpuscular HGB Conc 32.9 g/dl (31.0-35.0); Mean Corpuscular Hemoglobin 27.5 pg (27.0-33.0); Mean Corpuscular Volume 83.6 fL (80.0-98.0); Monocytes Absolute Auto 0.9 X10*3/uL (0.1-1.2); Monocytes Percent Auto 10.8 % (2-11); Neutrophils Absolute Auto 5.2 x10*3/uL (2.0-8.3); Neutrophils Percent Auto 62.3 % (45-73); Platelet Count 311 X10*3/uL (160-400); Red Blood Count 3.53 X10*6/uL (4.20-5.50); Red Cell Distribution Width 13.2 % (11.0-16.0); White Blood Count 8.3 X10*3/uL (4.8-10.8)
[2022-10-06 07:01] LABS: Anion Gap 12 (12-20); Blood Urea Nitrogen 7 mg/dL (9-16); Calcium 8.5 mg/dL (8.4-10.2); Carbon Dioxide 24 mmol/L (22-29); Chloride 102 mmol/L (96-108); Creatinine Clr Calc Pharmacy 68.3; Estimated Glomerular Filt Rate > 60; Glucose Fasting 130 mg/dL (60-99); Potassium 4.3 mmol/L (3.3-5.1); Sodium 134 mmol/L (135-145)
[2022-10-06 07:35] VITALS: BP 113/67; PULSE 87; RESP 17; TEMP 37.5; O2SAT 98
[2022-10-06] MEDS: oxyCODONE HCl ER 10 MG TAB.ER.12H PO ×2 (07:46→21:51)
[2022-10-06] MEDS: Celecoxib 200 MG CAPSULE PO ×2 (07:48→21:50)
[2022-10-06] MEDS: Losartan Potassium 50 MG TABLET 100 MG PO (07:48)
[2022-10-06] MEDS: Docusate Sodium 100 MG CAPSULE PO ×2 (07:49→21:51)
[2022-10-06] MEDS: metFORMIN HCl 1,000 MG TABLET 1000 MG PO ×2 (07:49→21:51)
[2022-10-06] MEDS: hydroCHLOROthiazide 25 MG TABLET PO (07:49)
[2022-10-06] MEDS: Loratadine 10 MG TABLET PO (07:49)
[2022-10-06 07:54] LABS: Glucose, Whole Blood 103 mg/dL (60-115)
--- NOTE | 2022-10-06 08:59 | PM.PNORT ---
Subjective Subjective Date of Service: 10/06/22 Interval history: PDO1 LTKA. Patient is resting in bed comfortably. Overnight patient complained of pain. Meds were adjusted accordingly but pain persisted. No additional complaints. Physical Exam Vital Signs: Vital Signs: Last Vital Signs Temp 99.5 F 10/06/22 07:35 Pulse 87 10/06/22 07:35 Resp 17 10/06/22 07:35 BP 113/67 10/06/22 07:35 Pulse Ox 98 10/06/22 07:35 O2 Del Method 10/06/22 07:35 BMI result Body Mass Index 27.1 Const: General: cooperative, healthy appearing and no acute distress Resp: Effort & Inspection: normal respiratory effort and able to speak in complete sentences Cardio: Rate: regular rate Peripheral pulses: Peripheral pulses 2+ throughout GI: Palpation (GI): Soft to palpation Skin: Lesions: no lesions Rashes: no rashes Extrem: Other: Left knee Aquacel is c/d/i. Able to dorsiflex and plantarflex. NVI. Procedures Date of Service Date of Service: 10/06/22 Progress Note: A&P Assessment and plan (1) S/P total knee arthroplasty: Status: Acute Assessment and Plan: Continue pain mgmnt Begin Lovenox for dvt ppx begin PT for LTKA Dispo planning-Pending PT eval, pain mgmnt (2) Diabetes mellitus: Status: Acute Time Spent With Patient Time: Total time managing care of this patient today ____ minutes. Quality Stroke Does the patient have a stroke diagnosis?: No VTE Prior VTE?: No VTE Risk Level:: Medical - moderate - high VTE Device Contraindication: N/A - Device Ordered VTE Drug Contraindication: N/A - Med Ordered
[2022-10-06] MEDS: Lactated Ringers 1,000 ML 100 ML IVCONT ×2 (09:01→18:33)
[2022-10-06] MEDS: Enoxaparin Sodium 40 MG/0.4 ML SYRINGE SUBCUT (09:23)
[2022-10-06 11:45] LABS: Glucose, Whole Blood 117 mg/dL (60-115)
--- NOTE | 2022-10-06 13:44 | HO.POSTANES ---
Post Anesthesia Evaluation Post Anesthesia Evaluation Vital Signs: Vital Signs Temp Pulse Resp BP Pulse Ox O2 Del Method 10/06/22 07:35 99.5 F 87 17 113/67 98 Room Air 10/06/22 03:51 97 F 91 18 117/63 97 Room Air Anesthesia: Spinal and Nerve Block Mental Status: Awake Pain Control: Satisfactory Nausea/Vomiting: None Hydration: Adequate Anesthesia-Related Issues: No Anes. Related Issues
--- NOTE | 2022-10-06 14:20 | MHC.CM.PN ---
PT REPORTS SHE LIVES WITH HER AND ADULT CHILDREN SHE SAYS SHE IS INDEPENDENT WITH CARE, HAS NO DME AND NO SERVICES PT DOES NOT HAVE A HCP, SHE WILL CONSIDER COMPLETING ONE SHE SAYS SHE IS COVID VAX AND BOOSTED PCP: RAPHAEL ODELL DCP TBD PT REPORTS SHE DOES NOT WANT STR SHE IS AGREEABLE TO [facility] (PT/OT) AT HOME FAMILY TO TRANSPORT
[2022-10-06 16:00] VITALS: BP 125/58; PULSE 80; RESP 17; TEMP 36.8
[2022-10-06 16:28] LABS: Glucose, Whole Blood 123 mg/dL (60-115)
[2022-10-06 19:54] VITALS: BP 141/62; PULSE 84; RESP 18; TEMP 36.2; O2SAT 98
[2022-10-06] MEDS: ondansetron HCL 4 MG/2 ML VIAL IVPUSH (20:46)
[2022-10-06] MEDS: 0.9 % Sodium Chloride Flush 3 ML SYRINGE IVFLUSH (20:46)
[2022-10-06 21:00] LABS: Glucose, Whole Blood 119 mg/dL (60-115)
[2022-10-06] MEDS: Acetaminophen 325 MG TABLET 650 MG PO (21:50)
[2022-10-07] VITALS (7 sets, daily range): BP systolic 113–139; BP diastolic 63–86; PULSE 78–100; RESP 18; TEMP 36.3–36.6; O2SAT 95–99
[2022-10-07] MEDS: HYDROmorphone HCl 0.5 MG/0.5 ML SYRINGE IVPUSH ×3 (00:41→16:23)
[2022-10-07] MEDS: Lactated Ringers 1,000 ML 100 ML IVCONT (03:26)
[2022-10-07] MEDS: Acetaminophen 325 MG TABLET 650 MG PO ×2 (05:09→21:37)
[2022-10-07] MEDS: Levothyroxine Sodium 50 MCG TABLET PO (05:10)
[2022-10-07] MEDS: oxyCODONE HCl Immed Release 5 MG TABLET 10 MG PO (05:10)
[2022-10-07] MEDS: ondansetron HCL 4 MG/2 ML VIAL IVPUSH (05:13)
[2022-10-07 06:28] LABS: MANUAL DIFF FLAG NO
[2022-10-07 06:33] LABS: Basophils Percent Auto 0.3 % (0-2); Eosinophils Absolute Auto 0.2 X10*3/uL (0.0-0.4); Eosinophils Percent Auto 2.4 % (0-4); Hematocrit 26.2 % (37.0-47.0); Hemoglobin 8.6 g/dl (12.0-16.0); Imm Gran Abs Auto 0.04 X10*3/uL (0.00-0.03); Imm Gran Pct Auto 0.4 % (0.0-0.4); Lymphocytes Absolute Auto 2.2 X10*3/uL (1.2-4.9); Mean Corpuscular HGB Conc 32.8 g/dl (31.0-35.0); Mean Corpuscular Hemoglobin 27.6 pg (27.0-33.0); Mean Platelet Volume 9.6 fL (9.4-12.3); Monocytes Absolute Auto 0.7 X10*3/uL (0.1-1.2); Monocytes Percent Auto 7.5 % (2-11); Neutrophils Absolute Auto 6.3 x10*3/uL (2.0-8.3); Neutrophils Percent Auto 66.4 % (45-73); Platelet Count 278 X10*3/uL (160-400); Red Blood Count 3.12 X10*6/uL (4.20-5.50); Red Cell Distribution Width 13.1 % (11.0-16.0); White Blood Count 9.5 X10*3/uL (4.8-10.8)
[2022-10-07 06:56] LABS: Anion Gap 12 (12-20); Blood Urea Nitrogen 5 mg/dL (9-16); Calcium 8.2 mg/dL (8.4-10.2); Carbon Dioxide 24 mmol/L (22-29); Chloride 97 mmol/L (96-108); Creatinine Clr Calc Pharmacy 73.6; Estimated Glomerular Filt Rate > 60; Glucose Fasting 101 mg/dL (60-99); Potassium 3.9 mmol/L (3.3-5.1); Sodium 129 mmol/L (135-145)
--- NOTE | 2022-10-07 07:42 | PM.PNORT ---
Subjective Subjective Date of Service: 10/07/22 Interval history: POD 2 LTKA. Patient is resting in bed comfortably. no overnight events, pain more tolerable No additional complaints. Physical Exam Vital Signs: Vital Signs: Last Vital Signs Temp 98.1 F 10/08/22 07:37 Pulse 85 10/08/22 07:37 Resp 18 10/08/22 07:37 BP 124/66 10/08/22 07:37 Pulse Ox 98 10/08/22 07:37 O2 Del Method 10/08/22 07:37 BMI result Body Mass Index 27.1 Const: General: cooperative, healthy appearing and no acute distress Resp: Effort & Inspection: normal respiratory effort and able to speak in complete sentences Cardio: Rate: regular rate Peripheral pulses: Peripheral pulses 2+ throughout GI: Palpation (GI): Soft to palpation Skin: General skin exam: no rashes or lesions noted Extrem: Other: incision clean dry and intact. [place] intact. No erythema or joint effusion. Calf supple nontender. Neurovascularly intact. Procedures Date of Service Date of Service: 10/07/22 Progress Note: A&P Assessment and plan (1) S/P total knee arthroplasty: Status: Acute Assessment and Plan: Continue pain mgmnt Lovenox for dvt ppx PT for LTKA Dispo : plan was for DC home but she was not cleared on stairs, will attempt tomorrow and plan for dc home (2) Diabetes mellitus: Status: Acute Time Spent With Patient Time: Total time managing care of this patient today ____ minutes. Quality Stroke Does the patient have a stroke diagnosis?: No VTE Prior VTE?: No VTE Risk Level:: Medical - moderate - high VTE Device Contraindication: N/A - Device Ordered VTE Drug Contraindication: N/A - Med Ordered
--- NOTE | 2022-10-07 07:56 | P.DS_ITS ---
DS: Providers Provider Date of Service: 10/07/22 Primary care physician: Leslie Lundy MD Consults: 10/05/22 12:26 Consult to Hospitalist Routine Consulting Provider: Hospitalist Reason For Exam: Routine medical management DS: Diagnosis Discharge Diagnosis (1) S/P total knee arthroplasty: Status: Acute (2) Diabetes mellitus: Status: Acute DS: Summary Hospital Course Hospital Course: The patient underwent a successful left total knee arthroplasty on 10/05/22, was transferred to PACU and then to the floor to recover. During their stay, their vitals were stable, afebrile at 97.8. Labs were unremarkable, H/H 8.6/26.2. POD 1 he was started on Lovenox for DVT ppx x48 hrs, then resumed home dose Eliquis. He also received Physical Therapy services twice a day. Physical therapy should include gait training, ROM to tolerance and quad strength. He is WBAT. Prior to discharge, his dressing was changed, incision clean dry and intact, new Aquacel dressing applied. The Aquacel dressing shoulder remain intact and dry at all times. Any concerns with the dressing, please contact orthopedic office. No showering. The plan is to be discharged home with [facility] services. Time Spent with Patient Time attestation: Total time managing care of this patient today ____ minutes. Discharge coordination time: Less than 30 minutes Quality: Safe Use of Opioids Does Pt have an Active Cancer Diagnosis on the Problem List?: No Quality: Stroke Does the patient have a stroke diagnosis?: No Physical Exam Vital Signs: Vital Signs: Last Vital Signs Temp 97.8 F 10/07/22 07:48 Pulse 78 10/07/22 07:48 Resp 18 10/07/22 07:48 BP 120/67 10/07/22 07:48 Pulse Ox 98 10/07/22 07:48 O2 Del Method 10/07/22 07:48 BMI result Body Mass Index 27.1 Const: General: cooperative, healthy appearing and no acute distress Resp: Effort & Inspection: normal respiratory effort and able to speak in complete sentences Cardio: Rate: regular rate Peripheral pulses: Peripheral pulses 2+ throughout GI: Palpation (GI): Soft to palpation Skin: General skin exam: no rashes or lesions noted Extrem: Other: incision clean dry and intact. [place] intact. No erythema or joint effusion. Calf supple nontender. Neurovascularly intact. DS: Data Data Completed and Pending Pending studies at discharge: Pending at discharge 10/05/22 08:50 Surgical [PTH] Routine Labs on day of discharge: Laboratory Results - last 24 hr 10/06/22 10/06/22 10/06/22 11:23 16:24 20:54 WBC RBC Hgb Hct MCV MCH MCHC RDW Plt Count MPV Immature Gran % (Auto) Neut % (Auto) Lymph % (Auto) [place] % (Auto) Eos % (Auto) Baso % (Auto) Lymph # (Auto) [place] # (Auto) Eos # (Auto) Baso # (Auto) Abs Immat Gran (auto) Absolute Neuts (auto) Absolute Nucleated RBC Nucleated RBC % (auto) Sodium Potassium Chloride Carbon Dioxide Anion Gap BUN Creatinine Estim Creat Clear Calc Estimated GFR POC Glucose 117 H 123 H 119 H Fasting Glucose Calcium 10/07/22 10/07/22 06:02 06:02 WBC 9.5 RBC 3.12 L Hgb 8.6 L Hct 26.2 L MCV 84.0 MCH 27.6 MCHC 32.8 RDW 13.1 Plt Count 278 MPV 9.6 Immature Gran % (Auto) 0.4 Neut % (Auto) 66.4 Lymph % (Auto) 23.0 [place] % (Auto) 7.5 Eos % (Auto) 2.4 Baso % (Auto) 0.3 Lymph # (Auto) 2.2 [place] # (Auto) 0.7 Eos # (Auto) 0.2 Baso # (Auto) 0.0 Abs Immat Gran (auto) 0.04 H Absolute Neuts (auto) 6.3 Absolute Nucleated RBC 0.000 Nucleated RBC % (auto) 0.0 Sodium 129 L Potassium 3.9 Chloride 97 Carbon Dioxide 24 Anion Gap 12 BUN 5 L Creatinine 0.64 Estim Creat Clear Calc 73.6 Estimated GFR > 60 POC Glucose Fasting Glucose 101 H Calcium 8.2 L Discharge Plan Discharge Patient Disposition: Home Health Service Referrals: Enedina Bain PA-C [Physician Byproducts Supervisor] - 2 Weeks (10/20/22 1:30 [facility] Enedina Bain PA-C) Discharge Medications: New acetaminophen 325 mg Tablet 650 mg PO Q6H PRN (Reason: Pain, Mild (Pain Scale 1-3)) 30 Days Qty: 240 0RF enoxaparin 40 mg/0.4 mL Syringe 40 mg subcut Q24H 42 Days Qty: 16.8 0RF celecoxib 200 mg Capsule 200 mg PO BID 30 Days Qty: 60 0RF docusate sodium 100 mg Capsule 100 mg PO BID 14 Days Qty: 28 0RF oxycodone 5 mg Tablet 5 mg PO Q4H PRN (Reason: Pain, Moderate (Pain Scale 4-6) 7 Days Qty: 42 0RF Rx Instructions: Partial Fill upon patient request. Continued (DME) Shower Chair Misc See Rx Instructions .Route Qty: 1 0RF Rx Instructions: As directed (DME) walker Misc See Rx Instructions .ROUTE .MEDSUPPLY Qty: 1 0RF Rx Instructions: Folding front wheeled walker cyanocobalamin (vitamin B-12) 1,000 mcg/mL solution 1 ml IM QMONTH loratadine 10 mg Tablet 10 mg PO DAILY fluticasone propionate 110 mcg/actuation Hfa Aerosol Inhaler 2 puff INHALATION BID levothyroxine 50 mcg tablet 1 tab PO DAILY albuterol sulfate [ProAir HFA] 90 mcg/actuation HFA aerosol inhaler 2 puff inhalation Q4-6H PRN (Reason: shortness of breath or wheezing) Qty: 8.5 0RF cholecalciferol (vitamin D3) 25 mcg (1,000 unit) capsule 25 mcg PO DAILY losartan 100 mg tablet 100 mg PO DAILY hydrochlorothiazide 25 mg tablet 25 mg PO DAILY metformin 1,000 mg tablet 1,000 mg PO BID Discharge Orders: Discharge Order (Routine); Ordered 10/07/22 Ordered By: Lilia Rodriguez Diet: Regular diet Activity on Discharge: Use cane or walker Activity Restrictions/Additional Instructions: Physical Therapy for Total knee arthroplasty: WBAT, gait training, ROM 0-12, quad strength * Limit stair climbing * No showering, no tub bath-keep dressing clean, dry and intact * No driving x6 weeks * Continue Aspirin twice a day x 6 weeks * Follow up with [facility] [place] [facility] weeks: * --you will also have your first out patient PT eval on the day of your post op appt-so please plan on being in the office that day for an extended period of time.
[2022-10-07] MEDS: Enoxaparin Sodium 40 MG/0.4 ML SYRINGE SUBCUT (07:59)
[2022-10-07] MEDS: metFORMIN HCl 1,000 MG TABLET 1000 MG PO ×2 (08:00→21:30)
[2022-10-07] MEDS: oxyCODONE HCl ER 10 MG TAB.ER.12H PO ×2 (08:00→21:31)
[2022-10-07] MEDS: Losartan Potassium 50 MG TABLET 100 MG PO (08:00)
[2022-10-07] MEDS: Loratadine 10 MG TABLET PO (08:01)
[2022-10-07] MEDS: hydroCHLOROthiazide 25 MG TABLET PO (08:01)
[2022-10-07] MEDS: Celecoxib 200 MG CAPSULE PO ×2 (08:01→21:30)
[2022-10-07] MEDS: Docusate Sodium 100 MG CAPSULE PO ×2 (08:01→21:30)
[2022-10-07 08:06] LABS: Glucose, Whole Blood 102 mg/dL (60-115)
--- NOTE | 2022-10-07 08:42 | W.MHC.F2F ---
Service Date Service Date: 10/07/22 Encounter Date of encounter: 10/07/22 Reasons for Services Signs and symptoms assessed: Left knee pain , swelling, poor balance, diff with ambulation Reason for physical therapy: home safety and mobility, therapeutic exercises, restore joint function, gait/transfer training, assess need for DME and energy conservation Reason for occupational therapy: home safety and mobility, therapeutic exercises, restore joint function, gait/transfer training, assess need for DME and energy conservation MD Overseeing Care: Allen Francis Homebound: Leaving the home is medically contraindicated at this time without the asist of a device and/or another person due th the listed conditions above and below. Reason homebound: unsteady gait / fall risk, leg weakness, pain with ambulation, pain with transfers, poor balance / fall risk, shortness of breath at rest and unable to drive Homebound supporting statement: Pt. is considered home bound due to recent surgery. Unable to drive, poor balance, poor gait mechanics. Certification: Based on the above findings, I certify that this patient is confined to the home and needs intermittent senior living care, physical therapy and/or speech therapy, or continues to need occupational therapy. The patient is under my care, and I have initiated the establishment of the plan of care. The patient will be followed by a physician who will periodically review the plan of care. Time Spent With Patient Time: Total time managing care of this patient today ____ minutes.
--- NOTE | 2022-10-07 08:52 | MHC.CM.PN ---
DP: PT HAS BEEN MEDICALLY CLEARED FOR DC HOME WITH NEW [facility] FOR PT,OT AND SN FOR LOVENOX TEACHING. RN AWARE AND WILL BEGIN TEACHING HERE. [facility] AWARE. WILL TRANSPORT HOME.
--- NOTE | 2022-10-07 11:09 | PC.NURSE ---
patient with sodium level of [address] Medina and Dr. Arnold aware. No new orders. Pt to discharge today.
[2022-10-07 11:24] LABS: Glucose, Whole Blood 115 mg/dL (60-115)
--- NOTE | 2022-10-07 13:56 | MHC.CM.PN ---
PER PHYSICAL THERAPY, PT IS UNABLE TO TOLERATE STAIRS AND WILL REQUIRE THIS TO RETURN HOME. [facility] [place] UPDATED. PT/SPOUSE REQUESTING ANOTHER DAY TO WORK ON STAIRS. PT IS ADAMANTLY REFUSING STR. RN AWARE. [facility] UPDATED. CM WILL CONTINUE TO FOLLOW.
--- NOTE | 2022-10-07 15:54 | P.OP_ITS ---
Operative Note Operative Note Date of Service: 10/05/22 Narrative: Date of Service: 10/05/22 Pre-op diagnosis: Left knee OA Post-op diagnosis: same Procedure: Left TKA Implants: [place] Tri[employer] press fit /29a Surgeon: Allen Francis MD Anesthesia: regional and spinal Was an Documentation Improvement Specialist used for this Procedure?: Yes Documentation Improvement Specialist: Enedina Bain Estimated blood loss (mL): 150 IV fluids (mL): 1,000 Pathology: other Condition: stable Disposition: PACU Procedure in detail: The patient was brought to the operating room and prepped and draped in standard sterile fashion. A time-out was called to identify proper site proper procedure proper surgeon and IV antibiotics were administered. 1 g of IV tranexamic acid was administered. I began by making a midline incision to the retinaculum and performed a medial parapatellar arthrotomy. The patella was translated laterally and the knee was flexed up. There was patellar and trochlear eburnation and mediaal compartment OA . I performed a small medial peel and resected the infrapatellar fat pad. Stockton's line was then used to drill my intramedullary femoral guide and my distal femur cut of 10 mm was made in 5 degrees of valgus while protecting the soft tissues. I then measured a # 1 femur in 3 deg of ER and placed my cutting guide and made my anterior posterior and chamfer cuts protecting the soft tissues at all times. Once I was satisfied with my cuts I turned my attention to the tibia. I removed the meniscus medially and laterally and , using an external cutting guide, in line with the tibial crest and the third ray, I made my distal tibial cut in 3 deg slope of while protecting the PCL the posterior soft tissues at all times. An extension block was used to confirm appropriate amount of bony resection. I then sized a #1 tibia and once I was satisfied that there was complete tibial coverage I placed my trial and with the trial femur in place took the knee through range of motion. It was tight in flexion and I therefore returned to the femur and made a box cut removing the PCL. I then retrialed with a 1 tibia and was satisfied with the blance and stability in both extension and flexion. I was satisfied with the extension and flexion as well as the stability and balance at 0, 30 and 90 degrees. I then turned my attention to the patella where I removed 1 cm from the undersurface of the patella and then trialed a 29a patellar button. Again the knee was taken through range of motion I was satisfied with the tracking. I then returned to the femur and drilled my femoral lug holes and prepared the tibia. A femoral bone plug was placed and the knee was irrigated copiously. I then press fit the patella, tibia and femur in standard fashion. I trialed different inserts until I selected a #9 insert. The final insert was placed and a 3 minutes iodine soak with local TXA was performed. A Werewolf cautery wand was used to maintain hemostasis over the capsule and meniscal beds, the gutters and peripatellar soft tissues. The knee was then closed with a running Quill suture, a 3 0 Vicryl and mariann on the skin. Patient was then placed in sterile dressing and brought to recovery room in stable condition there were no known complications.
[2022-10-07 16:12] LABS: Glucose, Whole Blood 98 mg/dL (60-115)
[2022-10-07] MEDS: 0.9 % Sodium Chloride Flush 3 ML SYRINGE IVFLUSH ×2 (16:24→21:32)
[2022-10-07 20:29] LABS: Glucose, Whole Blood 107 mg/dL (60-115)
[2022-10-08 03:44] VITALS: BP 113/68; PULSE 73; RESP 17; TEMP 36.2; O2SAT 95
[2022-10-08] MEDS: Levothyroxine Sodium 50 MCG TABLET PO (06:26)
[2022-10-08 06:32] LABS: MANUAL DIFF FLAG NO
[2022-10-08 06:36] LABS: Basophils Percent Auto 0.4 % (0-2); Eosinophils Absolute Auto 0.2 X10*3/uL (0.0-0.4); Eosinophils Percent Auto 2.9 % (0-4); Hematocrit 25.6 % (37.0-47.0); Hemoglobin 8.3 g/dl (12.0-16.0); Imm Gran Abs Auto 0.02 X10*3/uL (0.00-0.03); Imm Gran Pct Auto 0.3 % (0.0-0.4); Lymphocytes Percent Auto 28.4 % (20-40); Mean Corpuscular HGB Conc 32.4 g/dl (31.0-35.0); Mean Corpuscular Hemoglobin 27.3 pg (27.0-33.0); Mean Corpuscular Volume 84.2 fL (80.0-98.0); Mean Platelet Volume 9.9 fL (9.4-12.3); Monocytes Absolute Auto 0.5 X10*3/uL (0.1-1.2); Monocytes Percent Auto 7.5 % (2-11); Neutrophils Absolute Auto 4.4 x10*3/uL (2.0-8.3); Neutrophils Percent Auto 60.5 % (45-73); Platelet Count 283 X10*3/uL (160-400); Red Blood Count 3.04 X10*6/uL (4.20-5.50); White Blood Count 7.2 X10*3/uL (4.8-10.8)
[2022-10-08 07:15] LABS: Anion Gap 10 (12-20); Blood Urea Nitrogen 5 mg/dL (9-16); Calcium 8.3 mg/dL (8.4-10.2); Carbon Dioxide 29 mmol/L (22-29); Chloride 101 mmol/L (96-108); Creatinine Clr Calc Pharmacy 68.3; Estimated Glomerular Filt Rate > 60; Glucose Fasting 89 mg/dL (60-99); Sodium 136 mmol/L (135-145)
[2022-10-08 07:37] VITALS: BP 124/66; PULSE 85; RESP 18; TEMP 36.7; O2SAT 98
[2022-10-08 07:52] LABS: Glucose, Whole Blood 89 mg/dL (60-115)
[2022-10-08] MEDS: Docusate Sodium 100 MG CAPSULE PO (09:07)
[2022-10-08] MEDS: oxyCODONE HCl ER 10 MG TAB.ER.12H PO (09:07)
[2022-10-08] MEDS: metFORMIN HCl 1,000 MG TABLET 1000 MG PO (09:07)
[2022-10-08] MEDS: hydroCHLOROthiazide 25 MG TABLET PO (09:07)
[2022-10-08] MEDS: Celecoxib 200 MG CAPSULE PO (09:07)
[2022-10-08] MEDS: Losartan Potassium 50 MG TABLET 100 MG PO (09:08)
[2022-10-08] MEDS: Loratadine 10 MG TABLET PO (09:08)
[2022-10-08] MEDS: Enoxaparin Sodium 40 MG/0.4 ML SYRINGE SUBCUT (09:08)
[2022-10-08] MEDS: 0.9 % Sodium Chloride Flush 3 ML SYRINGE IVFLUSH (09:13)
[2022-10-08 11:25] LABS: Glucose, Whole Blood 169 mg/dL (60-115)
[2022-10-08 13:46] VITALS: BP 124/66; PULSE 85; O2SAT 98
[2022-10-08 14:01] VITALS: BP 124/66; PULSE 85; O2SAT 98
--- NOTE | 2022-10-08 15:01 | MHC.CM.PN ---
CM MET WITH PT AND HER TO DISCUSS DC PT CONTINUES TO DECLINE STR ALTHOUGH SHE KNOWS THAT IS THE RECOMMENDATION SHE ATTEMPTED STAIRS WITH PT AGAIN TODAY AND WAS ABLE TO DO ONE STEP WITH ASSISTANCE FROM HER PT AND HER REPORT THEY WILL GET HER INTO THE HOME HE SAYS HE FEELS HE WILL BE ABLE TO HELP HER THEY DECLINE OFFERS TO HAVE BLS TRANSPORT ARRANGED PT WILL DC WITH [facility] PA CONFIRMS A WALKER RX WAS SENT PRIOR TO SURGERY PT WILL DC HOME TODAY WITH [facility] TO TRANSPORT
== END 2022-10-08 15:06 | disposition home health service (06) ==
LOC: HO.SSS 09:48 → HO.S3 11:06
PROVIDERS: Physician Assistant; PCP Internal Medicine; Visit Provider Orthopaedic Surgery
PROC: (CPT 27447; principal; 2022-10-05 07:30)
DX: M17.12 Unilateral primary osteoarthritis, left knee (principal); M25.562 Pain in left knee; G89.28 Other chronic postprocedural pain; M25.462 Effusion, left knee; I10 Essential (primary) hypertension; E11.9 Type 2 diabetes mellitus without complications; J45.20 Mild intermittent asthma, uncomplicated; Z79.51 Long term (current) use of inhaled steroids; Z79.84 Long term (current) use of oral hypoglycemic drugs; Z79.899 Other long term (current) drug therapy; Z88.8 Allergy status to other drugs, medicaments and biological substances; Z20.822 Contact with and (suspected) exposure to COVID-19
CPT/HCPCS: 27447; 36415; 73560; 80048; 82947; 85014; 85018; 85025; 86850; 86900; 86901; 87635; 87640; 87641; 88305; 88311; 97110; 97116; 97163; 97530; C1776; J0131; J0690; J1170; J1650; J1885; J2250; J2405; J2795

== ENCOUNTER 2022-10-20 09:43 | Outpatient (RCR) | payer OTHER, SELFPAY | END 2023-01-26 13:37 | disposition home or self-care (01) | LOC: HO.PT 09:43 | PROVIDERS: Visit Provider Physician Assistant | DX: M17.10 Unilateral primary osteoarthritis, unspecified knee (principal) ==

== ENCOUNTER → 2022-10-20 13:08 | Outpatient (BNVA) | payer OTHER, SELFPAY | PROVIDERS: PCP Internal Medicine; Visit Provider Physician Assistant ==

== ENCOUNTER → 2022-11-03 10:50 | Outpatient (BNVA) | payer OTHER, SELFPAY | PROVIDERS: PCP Internal Medicine; Visit Provider Orthopaedic Surgery ==

== ENCOUNTER → 2022-11-17 13:29 | Outpatient (BNVA) | payer OTHER, SELFPAY | PROVIDERS: PCP Internal Medicine; Visit Provider Orthopaedic Surgery ==

== ENCOUNTER 2022-12-02 10:10 | Outpatient (REF) | payer OTHER, SELFPAY ==
--- NOTE | 2022-12-02 11:01 | PFT_ITS ---
INDICATION: Asthma. SPIROMETRY: FEV1 to FVC 89% with an FEV1 of 2.12 L, which is 102% predicted and FVC of 2.38 L, which is 88% predicted. No significant response to bronchodilator is noted. Maximum voluntary ventilation 90% predicted with a residual volume 74% predicted. DIFFUSION CAPACITY: DLCO 106% predicted. COMPARISON: None. INTERPRETATION: No obstructive and no restrictive ventilatory defect identified. No significant response to bronchodilator is noted. Normal maximum voluntary ventilation. Lung volumes are within normal limits. Diffusion capacity also within normal limits. If asthma is in the differential, a methacholine challenge may be helpful in assessing for hyperactive airways disease. Clinical correlation warranted. Williams Norris MD MR/MODL / [id number]
== END 2022-12-02 10:11 | disposition home or self-care (01) ==
LOC: HO.RESP 10:10
PROVIDERS: PCP Internal Medicine; Visit Provider Internal Medicine
DX: J45.909 Unspecified asthma, uncomplicated (principal)
CPT/HCPCS: 94010; 94727; 94729

== ENCOUNTER → 2022-12-15 08:29 | Outpatient (BNVA) | payer OTHER, SELFPAY | PROVIDERS: PCP Internal Medicine; Visit Provider Orthopaedic Surgery | DX: Z47.1 Aftercare following joint replacement surgery (principal); Z96.652 Presence of left artificial knee joint | CPT/HCPCS: 99212 ==

== ENCOUNTER 2022-12-15 09:44 | Outpatient (REF) | payer OTHER, SELFPAY ==
[2022-12-15 10:43] LABS: MANUAL DIFF FLAG NO
[2022-12-15 10:46] LABS: Basophils Percent Auto 0.6 % (0-2); Eosinophils Absolute Auto 0.1 X10*3/uL (0.0-0.4); Eosinophils Percent Auto 1.7 % (0-4); Imm Gran Abs Auto 0.02 X10*3/uL (0.00-0.03); Imm Gran Pct Auto 0.3 % (0.0-0.4); Lymphocytes Absolute Auto 2.4 X10*3/uL (1.2-4.9); Lymphocytes Percent Auto 36.9 % (20-40); Mean Corpuscular HGB Conc 32.4 g/dl (31.0-35.0); Mean Corpuscular Hemoglobin 26.8 pg (27.0-33.0); Mean Corpuscular Volume 82.8 fL (80.0-98.0); Mean Platelet Volume 9.3 fL (9.4-12.3); Monocytes Absolute Auto 0.3 X10*3/uL (0.1-1.2); Monocytes Percent Auto 5.2 % (2-11); Neutrophils Absolute Auto 3.6 x10*3/uL (2.0-8.3); Neutrophils Percent Auto 55.3 % (45-73); Platelet Count 380 X10*3/uL (160-400); Red Blood Count 4.47 X10*6/uL (4.20-5.50); Red Cell Distribution Width 13.3 % (11.0-16.0); White Blood Count 6.5 X10*3/uL (4.8-10.8)
[2022-12-15 11:06] LABS: D Dimer High Sensitivity 409 NG/ML
[2022-12-15 11:22] LABS: Estimated Average Glucose 111 mg/dL; Hemoglobin A1c % 5.5 %
[2022-12-15 12:33] LABS: Ferritin 16 ng/mL (10-250); Folate 5.4 ng/mL (> or = 4.0); Thyroid Stimulating Hormone 2.05 uIU/mL (0.32-4.0); Vitamin B12 242 pg/mL (200-900)
== END 2022-12-15 09:45 | disposition home or self-care (01) ==
LOC: HO.10HDL 09:44
PROVIDERS: Visit Provider Internal Medicine
DX: E03.9 Hypothyroidism, unspecified (principal); E11.9 Type 2 diabetes mellitus without complications; I10 Essential (primary) hypertension; R06.00 Dyspnea, unspecified
CPT/HCPCS: 36415; 82607; 82728; 82746; 83036; 84443; 85025; 85379

== ENCOUNTER → 2023-01-16 08:05 | Outpatient (BNVA) | payer OTHER, SELFPAY | PROVIDERS: PCP Internal Medicine; Visit Provider Internal Medicine | DX: G89.29 Other chronic pain (principal); M25.562 Pain in left knee; Z96.652 Presence of left artificial knee joint | CPT/HCPCS: 99202 ==

== ENCOUNTER → 2023-01-26 10:45 | Outpatient (BNVA) | payer OTHER, SELFPAY | PROVIDERS: PCP Internal Medicine; Visit Provider Internal Medicine Endocrinology, Diabetes & Metabolism | DX: D35.02 Benign neoplasm of left adrenal gland (principal); E03.9 Hypothyroidism, unspecified | CPT/HCPCS: 99212 ==

== ENCOUNTER 2023-01-30 07:48 | Outpatient (REF) | payer OTHER, SELFPAY ==
[2023-02-07 19:09] LABS: Dexamethasone 487 ng/dL
== END 2023-01-30 07:49 | disposition home or self-care (01) ==
LOC: HO.LAB 07:48
PROVIDERS: PCP Internal Medicine; Visit Provider Internal Medicine Endocrinology, Diabetes & Metabolism
DX: E03.9 Hypothyroidism, unspecified (principal); D35.02 Benign neoplasm of left adrenal gland; Z79.899 Other long term (current) drug therapy
CPT/HCPCS: 36415; 80299; 82533; 84439; 84443

== ENCOUNTER 2023-03-22 07:47 | Outpatient (REF) | payer OTHER, SELFPAY ==
[2023-03-22 08:26] LABS: Estimated Average Glucose 111 mg/dL; Hemoglobin A1C 114.5416 umol/L; Hemoglobin A1c % 5.5 % (<6.0)
[2023-03-22 08:54] LABS: Alanine Aminotransferase 13 U/L (0-31); Albumin Level 4.1 g/dL (3.5-5.0); Alkaline Phosphatase 74 U/L (39-117); Anion Gap 11 (12-20); Aspartate Amino Transferase 17 U/L (5-31); Bilirubin Total 0.3 mg/dL (0.0-1.0); Blood Urea Nitrogen 9 mg/dL (9-16); Calcium 9.9 mg/dL (8.4-10.2); Carbon Dioxide 26 mmol/L (22-29); Chloride 104 mmol/L (96-108); Estimated Glomerular Filt Rate > 60; Glucose Random 104 mg/dL (60-115); Potassium 3.9 mmol/L (3.3-5.1); Sodium 137 mmol/L (135-145)
== END 2023-03-22 07:48 | disposition home or self-care (01) ==
LOC: HO.LAB 07:47
PROVIDERS: PCP Internal Medicine; Visit Provider Internal Medicine
DX: E03.9 Hypothyroidism, unspecified (principal); E11.9 Type 2 diabetes mellitus without complications; I10 Essential (primary) hypertension; J45.909 Unspecified asthma, uncomplicated
CPT/HCPCS: 36415; 80053; 83036

== ENCOUNTER 2023-05-17 12:31 | Emergency (ER) | payer OTHER, SELFPAY ==
--- NOTE | ~2023-05-17 | XR_ITS ---
EXAMINATION: XR CHEST CLINICAL INFORMATION: Chest pain COMPARISON: 06/11/2022 TECHNIQUE: 2 views of the chest were obtained. FINDINGS: Lungs are well-inflated and clear. Trachea is midline in position. No interstitial disease, consolidation or mass. No pleural effusion or pneumothorax. Cardiac silhouette and pulmonary vessels are normal in size. The mediastinum and niko have normal contour. Multilevel osteophyte formation of the spine. Otherwise, the visualized bones and upper abdomen are unremarkable. XR/XR chest 2V IMPRESSION: No acute cardiopulmonary abnormality.
--- NOTE | 2023-05-17 12:33 | ECG_ITS ---
Test Reason : cp Blood Pressure : / mmHG Vent. Rate : 074 BPM Atrial Rate : 074 BPM P-R Int : 162 ms QRS Dur : 068 ms QT Int : 366 ms P-R-T Axes : 046 -30 -04 degrees QTc Int : 406 ms Normal sinus rhythm Left axis deviation Low voltage QRS Septal infarct (cited on or before 11-JUN-2022) Abnormal ECG When compared with ECG of 11-JUN-2022 00:13, Borderline criteria for Lateral infarct are no longer Present Nonspecific T wave abnormality no longer evident in Anterior leads Referred By: Edward Egan Electronically Signed By:WESLEY BRICENO MD
[2023-05-17 14:03] VITALS: BP 145/79; PULSE 74; RESP 17; TEMP 36.1; O2SAT 100; BMI 28.7
--- NOTE | 2023-05-17 14:07 | ED_ITS ---
HPI - General Adult General Chief complaint: Chest Pain Stated complaint: Chest Pain Time Seen by Provider: 05/17/23 18:58 Source: patient Mode of arrival: ambulatory Limitations: no limitations History of Present Illness HPI narrative: Patient arthritis, anxiety, hypertension diabetes comes here for left-sided chest pain started yesterday afternoon increased on palpation and movements sharp in character constant pain in left upper back and shoulder also no shortness of breath no diaphoresis no nausea no vomiting no fever no chills Related Data Home Medications Medication Instructions Recorded Confirmed cholecalciferol (vitamin D3) 25 25 mcg PO DAILY 08/05/20 01/26/23 mcg (1,000 unit) capsule hydrochlorothiazide 25 mg tablet 25 mg PO DAILY 11/02/21 01/26/23 losartan 100 mg tablet 100 mg PO DAILY 11/02/21 01/26/23 metformin 1,000 mg tablet 1,000 mg PO BID 11/02/21 01/26/23 cyanocobalamin (vitamin B-12) 1 ml IM QMONTH 09/14/22 01/26/23 1,000 mcg/mL injection solution loratadine 10 mg tablet 10 mg PO DAILY 09/14/22 01/26/23 fluticasone propionate 110 2 puff inhalation BID 09/26/22 01/26/23 mcg/actuation HFA aerosol inhaler levothyroxine 50 mcg tablet 1 tab PO DAILY 10/05/22 01/26/23 cyclobenzaprine 10 mg tablet 10 mg PO BEDTIME 01/26/23 01/26/23 lidocaine 4 % topical patch 0 patch topical 01/26/23 01/26/23 (Lidocaine Pain Relief) Previous Rx's Medication Instructions Recorded albuterol sulfate 90 mcg/actuation 2 puff inhalation Q4-6H PRN 06/11/22 aerosol inhaler (ProAir HFA) shortness of breath or wheezing #8.5 grams Shower Chair #1 ea 09/26/22 acetaminophen 325 mg tablet 650 mg (2 x 325 mg) PO Q6H PRN 10/07/22 Pain, Mild (Pain Scale 1-3) 30 days #240 tabs celecoxib 200 mg capsule 200 mg PO BID 30 days #60 caps 11/15/22 dexamethasone 1 mg tablet 1 mg PO ONCE #1 tab 01/26/23 diclofenac epolamine 1.3 % 1 patch topical BID #30 ea 05/17/23 transdermal 12 hour patch Allergies Allergy/AdvReac Type Severity Reaction Status Date / Time ibuprofen Allergy Severe stomach Verified 01/26/23 10:53 upset aspirin Allergy Unknown Gastrointestinal Verified 01/26/23 10:53 Upset lisinopril AdvReac Cough Verified 01/26/23 10:53 Review of Systems 2 Review of Systems: Yes all other systems are reviewed and are negative [facility] Past Medical History Medical History Asthma Allergic rhinitis Strict vegetarian diet Asthma Seasonal allergies Degenerative, intervertebral disc, cervical Diabetes mellitus Osteoarthritis of patellofemoral joint Abnormal CT scan, gastrointestinal tract Vitamin D deficiency Hypothyroidism Adenoma of left adrenal gland HTN (hypertension) B12 deficiency Diabetes mellitus, type 2 Surgical History Hx of colonoscopy History of carpal tunnel release Hx of tonsillectomy Hx of section Family History Family History Father Cancer Diabetes Hypertension Mother Diabetes Social History Social History Household Members: Spouse Are you a primary customer care associate to a significant other at home: No Do you presently have visiting nurse or other home services: No Alcohol intake: never Patient Tobacco Use Status: Never used Tobacco Smoked in Last 30 Days: No Advance Directives: No service: No Current occupational status: unemployed Physical Exam ED Vital Signs: Vital Signs - 24 hr 05/17/23 14:03 05/17/23 18:04 05/17/23 19:40 Temperature 96.9 F 98.2 F 98.4 F Pulse Rate 74 67 73 Respiratory Rate 17 16 16 Blood Pressure 145/79 H 118/73 125/77 Pulse Oximetry 100 98 97 Oxygen Delivery Method Room Air Room Air Room Air BMI result Body Mass Index 28.7 Appearance: Alert. Oriented X3. No acute distress. Eyes: No pallor icterus ENT: Pharynx normal. Oral Mucosa moist Neck: Normal inspection. Neck supple. CVS: Normal heart rate and rhythm. Pulses normal. Respiratory: No respiratory distress. Equal air entry bilateral, tenderness left 2nd intercostal space and left trapezius Abdomen: Soft and nontender. Bowel sounds are present, no mass palpable, no CVA tenderness Skin: Skin warm and dry. Normal skin color. Normal skin turgor. Extremities: No lower extremity edema. No calf tenderness Neuro: Oriented X 3. No motor deficit. No sensory deficit.No cerebellar signs , cranial nerves II-XII intact Course Course Course Narrative: RME: 57 yold female presents to the ED for chest pain since yesterday. Patient EkG and labs ordered. chest xray ordered Medications Administered Discontinued Medications Generic Name Dose Route Start Last Admin Trade Name Mey PRN Reason Stop Dose Admin Ketorolac Tromethamine 30 mg 05/17/23 19:14 05/17/23 19:54 Ketorolac Tromethamine 30 Mg/Ml Vial IVPUSH 05/17/23 19:15 30 mg ONCE ONE Administration Medical Decision Making Medical Decision Making [facility] Narrative: Patient atypical chest pain reproducible on palpation to the left 2nd intercostal space 2 sets of cardiac enzymes negative EKG without any ischemic changes discharging patient home on diclofenac sodium patient's monitor Toradol IV Differential Diagnosis Differential Diagnoses: The differential diagnosis associated with the presentation includes ACS/costochondritis Lab Data [facility] Lab Attestation statement: I reviewed the patient's lab results. 05/17/23 14:24 05/17/23 14:24 Labs: Lab Results 05/17/23 05/17/23 Range/Units 14:24 19:51 WBC 7.4 (4.8-10.8) X10*3/uL RBC 4.46 (4.20-5.50) X10*6/uL Hgb 12.1 (12.0-16.0) g/dl Hct 36.0 L (37.0-47.0) % MCV 80.7 (80.0-98.0) fL MCH 27.1 (27.0-33.0) pg MCHC 33.6 (31.0-35.0) g/dl RDW 13.8 (11.0-16.0) % Plt Count 397 (160-400) X10*3/uL MPV 9.1 L (9.4-12.3) fL Immature Gran % (Auto) 0.3 (0.0-0.4) % Neut % (Auto) 57.7 (45-73) % Lymph % (Auto) 34.1 (20-40) % [place] % (Auto) 6.2 (2-11) % Eos % (Auto) 1.2 (0-4) % Baso % (Auto) 0.5 (0-2) % Lymph # (Auto) 2.5 (1.2-4.9) X10*3/uL [place] # (Auto) 0.5 (0.1-1.2) X10*3/uL Eos # (Auto) 0.1 (0.0-0.4) X10*3/uL Baso # (Auto) 0.0 (0.0-0.2) X10*3/uL Abs Immat Gran (auto) 0.02 (0.00-0.03) X10*3/uL Absolute Neuts (auto) 4.3 (2.0-8.3) x10*3/uL Absolute Nucleated RBC 0.000 (0.0-0.012) X10*3/uL Nucleated RBC % (auto) 0.0 (0.0-0.2) /100WBC Sodium 131 L (135-145) mmol/L Potassium 3.9 (3.3-5.1) mmol/L Chloride 99 (96-108) mmol/L Carbon Dioxide 25 (22-29) mmol/L Anion Gap 11 L (12-20) BUN 8 L (9-16) mg/dL Creatinine 0.66 (0.5-1.4) mg/dL Estim Creat Clear Calc 73.4 Estimated GFR > 60 Random Glucose 111 (60-115) mg/dL Calcium 9.9 (8.4-10.2) mg/dL Total Bilirubin 0.3 (0.0-1.0) mg/dL AST 17 (5-31) U/L ALT 9 (0-31) U/L Alkaline Phosphatase 75 (39-117) U/L Troponin I High Sens < 2.7 < 2.7 (<3.5-17.0) ng/L C-Reactive Protein 0.15 (< or = 0.50) mg/dL B-Natriuretic Peptide 27 (<100) pg/mL Total Protein 7.2 (6.5-8.0) g/dL Albumin 4.2 (3.5-5.0) g/dL Lipase 19 (8-78) U/L COVID-19 (KHURRAM) Negative (Negative) COVID-19 Clin Com See Note Influenza Type A (KANDI) Negative (Negative) Influenza Type B (KANDI) Negative (Negative) Influenza A & B Note See Note Independent Interpretation I performed an independent interpretation of an: EKG Interpretation: Normal sinus rhythm heart rate 74 beats per minute left axis deviation no acute ST changes no acute ischemia Discharge Plan Discharge Clinical Impression: Costalchondritis Patient Disposition: Home, Self-Care Instructions: Costochondritis (ED) Additional Instructions: No chest pain likely from inflammation of the joint Take pain medication as prescribed Follow with PCP for further evaluate Prescriptions: New diclofenac epolamine 1.3 % patch 12 hour 1 patch topical BID Qty: 30 0RF No Action (DME) Shower Chair Misc See Rx Instructions .Route Qty: 1 0RF Rx Instructions: As directed celecoxib 200 mg capsule 200 mg PO BID 30 Days Qty: 60 0RF cyanocobalamin (vitamin B-12) 1,000 mcg/mL solution 1 ml IM QMONTH loratadine 10 mg Tablet 10 mg PO DAILY fluticasone propionate 110 mcg/actuation Hfa Aerosol Inhaler 2 puff INHALATION BID levothyroxine 50 mcg tablet 1 tab PO DAILY acetaminophen 325 mg Tablet 650 mg PO Q6H PRN (Reason: Pain, Mild (Pain Scale 1-3)) 30 Days Qty: 240 0RF albuterol sulfate [ProAir HFA] 90 mcg/actuation HFA aerosol inhaler 2 puff inhalation Q4-6H PRN (Reason: shortness of breath or wheezing) Qty: 8.5 0RF cholecalciferol (vitamin D3) 25 mcg (1,000 unit) capsule 25 mcg PO DAILY losartan 100 mg tablet 100 mg PO DAILY hydrochlorothiazide 25 mg tablet 25 mg PO DAILY metformin 1,000 mg tablet 1,000 mg PO BID cyclobenzaprine 10 mg tablet 10 mg PO BEDTIME lidocaine [Lidocaine Pain Relief] 4 % adhesive patch,medicated 0 patch topical dexamethasone 1 mg tablet 1 mg PO ONCE Qty: 1 0RF Interventions: ED Discharge Assessment Last Done: 05/17/23 20:45 Discharge Date/Time: 05/17/23 20:46
[2023-05-17 14:35] LABS: MANUAL DIFF FLAG NO
[2023-05-17 14:39] LABS: Basophils Percent Auto 0.5 % (0-2); Eosinophils Absolute Auto 0.1 X10*3/uL (0.0-0.4); Eosinophils Percent Auto 1.2 % (0-4); Hemoglobin 12.1 g/dl (12.0-16.0); Imm Gran Abs Auto 0.02 X10*3/uL (0.00-0.03); Imm Gran Pct Auto 0.3 % (0.0-0.4); Lymphocytes Absolute Auto 2.5 X10*3/uL (1.2-4.9); Lymphocytes Percent Auto 34.1 % (20-40); Mean Corpuscular HGB Conc 33.6 g/dl (31.0-35.0); Mean Corpuscular Hemoglobin 27.1 pg (27.0-33.0); Mean Corpuscular Volume 80.7 fL (80.0-98.0); Mean Platelet Volume 9.1 fL (9.4-12.3); Monocytes Absolute Auto 0.5 X10*3/uL (0.1-1.2); Monocytes Percent Auto 6.2 % (2-11); Neutrophils Absolute Auto 4.3 x10*3/uL (2.0-8.3); Neutrophils Percent Auto 57.7 % (45-73); Platelet Count 397 X10*3/uL (160-400); Red Blood Count 4.46 X10*6/uL (4.20-5.50); Red Cell Distribution Width 13.8 % (11.0-16.0); White Blood Count 7.4 X10*3/uL (4.8-10.8)
[2023-05-17 14:51] LABS: Alanine Aminotransferase 9 U/L (0-31); Albumin Level 4.2 g/dL (3.5-5.0); Alkaline Phosphatase 75 U/L (39-117); Anion Gap 11 (12-20); Aspartate Amino Transferase 17 U/L (5-31); Bilirubin Total 0.3 mg/dL (0.0-1.0); Blood Urea Nitrogen 8 mg/dL (9-16); Calcium 9.9 mg/dL (8.4-10.2); Carbon Dioxide 25 mmol/L (22-29); Chloride 99 mmol/L (96-108); Creatinine Clr Calc Pharmacy 73.4; Estimated Glomerular Filt Rate > 60; Glucose Random 111 mg/dL (60-115); Lipase 19 U/L (8-78); Potassium 3.9 mmol/L (3.3-5.1); Sodium 131 mmol/L (135-145); Total Protein 7.2 g/dL (6.5-8.0)
[2023-05-17 14:56] LABS: COVID-19 Test Negative (Negative); IDNOW Serial# 08D9AD1C; IDNOW Serial# BCCEAD1C; Influenza A Negative (Negative); Influenza B2 Negative (Negative)
[2023-05-17 14:57] LABS: B Type Natriuretic Peptide 27 pg/mL (<100)
[2023-05-17 14:59] LABS: Troponin-I High Sensitivity < 2.7 ng/L (<3.5-17.0)
[2023-05-17 18:04] VITALS: BP 118/73; PULSE 67; RESP 16; TEMP 36.8; O2SAT 98
--- NOTE | 2023-05-17 18:04 | MHC.EDTECH ---
THIS PCT JUST ASSUMED CARE OF PATIENT ,VITALS TAKEN AND PATIENT WAS HOOKED UP TO POLITICAL REPORTER ,PT IS COMFORTABLE ,NO APPARENT DISTRESS NOTED ,PT AT BED SIDE ,CALL DURON WITHIN REACH .
--- NOTE | 2023-05-17 18:52 | PC.NURSE ---
assumed care of pt, pt resting comfortably with at bedside
[2023-05-17 19:40] VITALS: BP 125/77; PULSE 73; RESP 16; TEMP 36.9; O2SAT 97
[2023-05-17] MEDS: Ketorolac Tromethamine 30 MG/ML VIAL IVPUSH (19:54)
[2023-05-17 20:08] LABS: C Reactive Protein 0.15 mg/dL (< or = 0.50)
[2023-05-17 20:17] LABS: Troponin-I High Sensitivity < 2.7 ng/L (<3.5-17.0)
== END 2023-05-17 20:46 | disposition home or self-care (01) ==
PROVIDERS: Physician Assistant; Emergency Provider Internal Medicine; PCP Internal Medicine
DX: M94.0 Chondrocostal junction syndrome [Tietze] (principal); E11.9 Type 2 diabetes mellitus without complications; I10 Essential (primary) hypertension; Z79.899 Other long term (current) drug therapy; Z11.52 Encounter for screening for COVID-19
CPT/HCPCS: 36415; 71046; 80053; 83690; 83880; 84484; 85025; 86140; 87502; 87635; 93005; 96374; 99284; 99285; J1885

== ENCOUNTER 2023-05-29 07:09 | Outpatient (REF) | payer OTHER, SELFPAY ==
[2023-05-29 07:21] LABS: MANUAL DIFF FLAG NO
[2023-05-29 07:38] LABS: Basophils Percent Auto 0.6 % (0-2); Eosinophils Absolute Auto 0.1 X10*3/uL (0.0-0.4); Eosinophils Percent Auto 1.9 % (0-4); Hematocrit 36.5 % (37.0-47.0); Hemoglobin 11.8 g/dl (12.0-16.0); Imm Gran Abs Auto 0.02 X10*3/uL (0.00-0.03); Imm Gran Pct Auto 0.3 % (0.0-0.4); Lymphocytes Absolute Auto 2.6 X10*3/uL (1.2-4.9); Lymphocytes Percent Auto 37.3 % (20-40); Mean Corpuscular HGB Conc 32.3 g/dl (31.0-35.0); Mean Corpuscular Hemoglobin 26.9 pg (27.0-33.0); Mean Corpuscular Volume 83.3 fL (80.0-98.0); Mean Platelet Volume 9.2 fL (9.4-12.3); Monocytes Absolute Auto 0.4 X10*3/uL (0.1-1.2); Monocytes Percent Auto 6.1 % (2-11); Neutrophils Absolute Auto 3.7 x10*3/uL (2.0-8.3); Neutrophils Percent Auto 53.8 % (45-73); Platelet Count 413 X10*3/uL (160-400); Red Blood Count 4.38 X10*6/uL (4.20-5.50); Red Cell Distribution Width 13.6 % (11.0-16.0); White Blood Count 6.8 X10*3/uL (4.8-10.8)
[2023-05-29 07:48] LABS: Estimated Average Glucose 108 mg/dL; Hemoglobin A1c % 5.4 % (<6.0)
[2023-05-29 08:35] LABS: Alanine Aminotransferase 8 U/L (0-31); Albumin Level 4.2 g/dL (3.5-5.0); Alkaline Phosphatase 72 U/L (39-117); Anion Gap 13 (12-20); Aspartate Amino Transferase 14 U/L (5-31); Bilirubin Total 0.3 mg/dL (0.0-1.0); Blood Urea Nitrogen 8 mg/dL (9-16); Calcium 9.8 mg/dL (8.4-10.2); Carbon Dioxide 28 mmol/L (22-29); Chloride 102 mmol/L (96-108); Estimated Glomerular Filt Rate > 60; Glucose Random 95 mg/dL (60-115); Potassium 3.7 mmol/L (3.3-5.1); Sodium 139 mmol/L (135-145)
[2023-05-29 08:54] LABS: Ferritin 14 ng/mL (10-250); Thyroid Stimulating Hormone 2.39 uIU/mL (0.32-4.0)
[2023-05-29 09:01] LABS: Folate 8.7 ng/mL (> or = 4.0); Vitamin B12 218 pg/mL (200-900)
== END 2023-05-29 07:10 | disposition home or self-care (01) ==
LOC: HO.LAB 07:09
PROVIDERS: PCP Internal Medicine; Visit Provider Internal Medicine
DX: E03.9 Hypothyroidism, unspecified (principal); E11.9 Type 2 diabetes mellitus without complications; I10 Essential (primary) hypertension; R53.83 Other fatigue
CPT/HCPCS: 36415; 80053; 82607; 82728; 82746; 83036; 84443; 85025

== ENCOUNTER 2023-09-14 07:17 | Outpatient (REF) | payer OTHER, SELFPAY ==
[2023-09-14 08:22] LABS: Creatinine Urine 84.07 mg/dL
[2023-09-14 08:39] LABS: Alanine Aminotransferase 9 U/L (0-31); Alkaline Phosphatase 70 U/L (39-117); Anion Gap 12 (12-20); Aspartate Amino Transferase 13 U/L (5-31); Bilirubin Total 0.3 mg/dL (0.0-1.0); Blood Urea Nitrogen 9 mg/dL (9-16); Calcium 9.7 mg/dL (8.4-10.2); Carbon Dioxide 30 mmol/L (22-29); Chloride 104 mmol/L (96-108); Cholesterol 149 mg/dL (<200); Estimated Glomerular Filt Rate > 60; Glucose Random 87 mg/dL (60-115); HDL Cholesterol 65 mg/dL (>40); LDL Cholesterol Calculated 70 mg/dL (<100); Potassium 3.7 mmol/L (3.3-5.1); Sodium 142 mmol/L (135-145); Thyroid Stimulating Hormone 2.87 uIU/mL (0.32-4.0); Total Protein 6.9 g/dL (6.5-8.0); Triglycerides 70 mg/dL (<150)
== END 2023-09-14 07:18 | disposition home or self-care (01) ==
LOC: HO.LAB 07:17
PROVIDERS: PCP Internal Medicine; Visit Provider Internal Medicine
DX: E03.8 Other specified hypothyroidism (principal); E11.9 Type 2 diabetes mellitus without complications; E78.00 Pure hypercholesterolemia, unspecified; I10 Essential (primary) hypertension
CPT/HCPCS: 36415; 80053; 80061; 82043; 82570; 84443

== ENCOUNTER 2023-10-27 11:37 | Outpatient (AMB) | payer OTHER, SELFPAY ==
--- NOTE | 2023-10-27 11:38 | A.OFFVIS_ITS ---
Intake Intake Visit Reasons: ov-LT TKA 10/05/22 NE Intake Note: This is a 58 year old female who presents for a follow up for a left TKA done 10/05/[address] Francis. Nursing Program Chair Required: No Allergies ibuprofen Allergy (Severe, Verified 10/27/23 11:39) stomach upset aspirin Allergy (Unknown, Verified 10/27/23 11:39) Gastrointestinal Upset lisinopril Adverse Reaction (Verified 10/27/23 11:39) Cough Medication List - Last Reconciled 10/27/23 by Luciana Norton, RN acetaminophen 650 mg (2 x 325 mg) PO Q6H PRN 30 days albuterol sulfate 90 mcg/actuation (ProAir HFA) 2 puffs inhalation Q4-6H PRN celecoxib 200 mg PO BID 30 days cholecalciferol (vitamin D3) 25 mcg PO DAILY cyanocobalamin (vitamin B-12) 1 mL IM QMONTH cyclobenzaprine 10 mg PO BEDTIME dexamethasone 1 mg PO ONCE diclofenac epolamine 1.3% 1 patch topical BID fluticasone propionate 110 mcg/actuation 2 puffs inhalation BID hydrochlorothiazide 25 mg PO DAILY levothyroxine 1 tab PO DAILY lidocaine 4% (Lidocaine Pain Relief) 0 patches topical loratadine 10 mg PO DAILY losartan 100 mg PO DAILY metformin 1,000 mg PO BID Shower Chair As directed HPI ov-LT TKA 10/05/22 NE HPI Details ~ 12 mo s/p left TKA. She is doing well and feels good. She has no complaints. [facility] Medical History Asthma Allergic rhinitis Strict vegetarian diet Asthma Seasonal allergies Degenerative, intervertebral disc, cervical Diabetes mellitus Osteoarthritis of patellofemoral joint Abnormal CT scan, gastrointestinal tract Vitamin D deficiency Hypothyroidism Adenoma of left adrenal gland HTN (hypertension) B12 deficiency Diabetes mellitus, type 2 Surgical History Hx of colonoscopy History of carpal tunnel release Hx of tonsillectomy Hx of section Family History Father Cancer Diabetes Hypertension Mother Diabetes Social History Household Members: Spouse Are you a primary lawn caretaker to a significant other at home: No Do you presently have visiting nurse or other home services: No Alcohol intake: never Patient Tobacco Use Status: Never used Tobacco service: No Current occupational status: unemployed Physical Exam Extrem Other: nl gait 0-110 deg motion Stable arc of motion Assessment & Plan Assessment & Plan (1) S/P total knee arthroplasty: Comment: Left knee arthroplasty 10/05/2022 [place] Code(s): Z96.659 - Presence of unspecified artificial knee joint Plan: Aldo is doing well s/p left TKA. She has mild stiffness in flexion but this d oes not bother her. She is walking well. Her post op course was complicated by pain but she is happy and I am please with her progress. She may follow up as needed. Discussed dental prophylaxis. Coding Level of Care Code Est Pt Level 3 (94376) Diagnoses S/P total knee arthroplasty Z96.659
== END 2023-10-27 12:01 | disposition home or self-care (01) ==
LOC: HO.HOS 11:37
PROVIDERS: PCP Internal Medicine; Visit Provider Orthopaedic Surgery
DX: Z47.1 Aftercare following joint replacement surgery (principal); Z96.652 Presence of left artificial knee joint
CPT/HCPCS: 99213

== ENCOUNTER → 2023-10-27 11:37 | Outpatient (BNVA) | payer OTHER, SELFPAY | PROVIDERS: PCP Internal Medicine; Visit Provider Orthopaedic Surgery | DX: Z47.1 Aftercare following joint replacement surgery (principal); Z96.652 Presence of left artificial knee joint | CPT/HCPCS: 99212 ==

== ENCOUNTER 2023-12-21 07:35 | Outpatient (REF) | payer OTHER, SELFPAY ==
[2023-12-21 08:29] LABS: Estimated Average Glucose 120 mg/dL; Hemoglobin A1c % 5.8 % (<6.0)
[2023-12-21 08:48] LABS: Alanine Aminotransferase 12 U/L (0-31); Alkaline Phosphatase 68 U/L (39-117); Anion Gap 12 (12-20); Aspartate Amino Transferase 16 U/L (5-31); Blood Urea Nitrogen 7 mg/dL (9-16); Calcium 10.2 mg/dL (8.4-10.2); Carbon Dioxide 28 mmol/L (22-29); Chloride 106 mmol/L (96-108); Estimated Glomerular Filt Rate > 60; Glucose Random 88 mg/dL (60-115); Potassium 3.5 mmol/L (3.3-5.1); Sodium 142 mmol/L (135-145); Total Protein 6.8 g/dL (6.5-8.0)
[2023-12-21 09:25] LABS: Bilirubin Total 0.3 mg/dL (0.0-1.0)
== END 2023-12-21 07:36 | disposition home or self-care (01) ==
LOC: HO.LAB 07:35
PROVIDERS: PCP Internal Medicine; Visit Provider Internal Medicine
DX: Z00.00 Encounter for general adult medical examination without abnormal findings (principal); E11.9 Type 2 diabetes mellitus without complications; I10 Essential (primary) hypertension; E03.8 Other specified hypothyroidism
CPT/HCPCS: 36415; 80053; 83036

== ENCOUNTER 2024-01-26 08:12 | Outpatient (REF) | payer OTHER, SELFPAY ==
--- NOTE | ~2024-01-26 | MM_ITS ---
EXAMINATION: MM SCREENING DIGITAL BREAST TOMOSYNTHESIS, BILATERAL CLINICAL INFORMATION: Screening. Asymptomatic. COMPARISON: Mammography: This study is compared with prior exams dating back to 2016. TECHNIQUE: Digital breast tomosynthesis is performed in both the craniocaudal and mediolateral oblique views along with computer-aided detection (CAD). Synthesized 2D images are generated from the tomosynthesis. FINDINGS: The breasts are almost entirely fatty (ACR BI-RADS breast composition Category a). There are no significant masses, abnormal calcifications, or other abnormalities. MM/MM tomosynthesis screening BI IMPRESSION: No mammographic evidence of malignancy. ASSESSMENT: BI-RADS BI-RADS 1 - Negative RECOMMENDATION: Routine annual mammography screening. 1 year F/U This examination should not preclude the clinical evaluation of a suspicious palpable abnormality. This patient's information was entered into a reminder system with a target due date for their next mammogram.
== END 2024-01-26 08:13 | disposition home or self-care (01) ==
LOC: HO.MAMMO 08:12
PROVIDERS: PCP Internal Medicine; Visit Provider Internal Medicine
DX: Z12.31 Encounter for screening mammogram for malignant neoplasm of breast (principal)
CPT/HCPCS: 77063; 77067

== ENCOUNTER → 2024-01-26 08:15 | Outpatient (BNV) | payer OTHER, SELFPAY | PROVIDERS: PCP Internal Medicine; Visit Provider Radiology Diagnostic Radiology | DX: Z12.31 Encounter for screening mammogram for malignant neoplasm of breast (principal) | CPT/HCPCS: 77063; 77067 ==

== ENCOUNTER 2024-01-30 10:26 | Outpatient (AMB) | payer OTHER, SELFPAY ==
--- NOTE | 2024-01-30 10:28 | MHC.OFFVIS ---
Vital Signs 01/30/24 10:29 Height 4 ft 10 in Weight 137 lb 5.568 oz BMI 28.7 BP 132/90 H Blood Pressure Location Lt brachial Position Sitting Pulse 82 Pulse Source Pulse Oximeter Intake Visit Reasons: f/u adrenal adenoma-confirmed Intake Note: Patient present today for adrenal adenoma follow up visit. Community Marketing Coordinator Required: No Accompanied by: Self / Same As Patient Allergies ibuprofen Allergy (Severe, Verified 01/30/24 10:32) stomach upset aspirin Allergy (Unknown, Verified 01/30/24 10:32) Gastrointestinal Upset lisinopril Adverse Reaction (Verified 01/30/24 10:32) Cough HPI Comments Details: 58 yo female today for fup visit, for left adrenal nodule. She is still feeling tired. Patient has a left adrenal adenoma, she has negative workup to times 2016 and 2018. She is here today for follow-up. She has PMH of depression, panic attacks, hypertension, hyperlipidemia, seasonal allergies, diabetes mellitus, obesity, low vitamin D, Shad's thyroiditis and hypothyroidism. She is complaining of occasional episodes of sweating associated with headache She has personal age appropriate screening for cancer negative. CT abdomen/pelvis 02/09/18 There is a 1.3 x 0.9 cm left adrenal lesion measuring 34 Hounsfield units. MRI 03/02/18 Abdomen Left adrenal nodule measures 1.5 x 1 cm, correlate with the nodule seen on the CT scan, this exhibits no enhancement, complete signal drop on out of phase sequence, this is compatible with adrenal adenoma. She is complaining of pain in both lower extremities that extends up to the thigh. She denies Hirsutism, clitoromegaly, she has normal libido, no frontotemporal balding, denies dizziness, denies weakness, acne, proximal muscle weakness, denies easy bruisability, violaceous stretch pickett, denies nausea, vomiting, diarrhea, palpitations, + sweating, denies flushing, headache, + anxiety, irritability. She is taking lucas doses of Biotin. Laboratory Tests 05/17/18 05/17/18 05/17/18 08:15 08:15 08:15 Sodium Potassium Creatinine Random Glucose Hemoglobin A1c Hemoglobin A1c % Renin 0.69 Aldosterone 5 TSH TSH 3rd Generation Total Testosterone 15 Free Testosterone 1.7 DHEA Sulfate 36 Cortisol Cortisol Baseline ACTH Resp to Cosyntrop Cortisol Resp ACTH 30m Cortisol Resp ACTH 60m ACTH Pl Free Catecholamine 457 Norepinephrine 457 Plasma Free Metaneph 29 Plasma Free Normeta 64 Plas Total Metaneph 93 Dexamethasone 06/05/18 01/29/19 01/30/20 08:28 08:07 08:07 Sodium Potassium Creatinine Random Glucose Hemoglobin A1c Hemoglobin A1c % Renin Aldosterone TSH TSH 3rd Generation Total Testosterone Free Testosterone DHEA Sulfate Cortisol 1.7 Cortisol Baseline 9.7 ACTH Resp to Cosyntrop 0835 Cortisol Resp ACTH 30m 25.5 Cortisol Resp ACTH 60m 29.9 ACTH <[address] Free Catecholamine Norepinephrine Plasma Free Metaneph Plasma Free Normeta Plas Total Metaneph Dexamethasone SEE NOTE 03/09/20 03/09/20 06/03/20 09:40 09:40 15:40 Sodium Potassium Creatinine Random Glucose Hemoglobin A1c 6.6 Hemoglobin A1c % Renin Aldosterone TSH 0.45 TSH 3rd Generation 1.50 Total Testosterone Free Testosterone DHEA Sulfate Cortisol Cortisol Baseline ACTH Resp to Cosyntrop Cortisol Resp ACTH 30m Cortisol Resp ACTH 60m ACTH Pl Free Catecholamine Norepinephrine Plasma Free Metaneph Plasma Free Normeta Plas Total Metaneph Dexamethasone 06/03/20 06/03/20 15:40 15:40 Sodium 138 Potassium 3.8 Creatinine 0.80 Random Glucose 108 Hemoglobin A1c Hemoglobin A1c % 7.2 Renin Aldosterone TSH TSH 3rd Generation Total Testosterone Free Testosterone DHEA Sulfate Cortisol Cortisol Baseline ACTH Resp to Cosyntrop Cortisol Resp ACTH 30m Cortisol Resp ACTH 60m ACTH Pl Free Catecholamine Norepinephrine Plasma Free Metaneph Plasma Free Normeta Plas Total Metaneph Dexamethasone Workup has been negative for secretion including normal plasma metanephrines and normal 1 mg dexamethasone suppression test . No sx of pheo or [place] PFSH Medical History Asthma Allergic rhinitis Strict vegetarian diet Asthma Seasonal allergies Degenerative, intervertebral disc, cervical Diabetes mellitus Osteoarthritis of patellofemoral joint Abnormal CT scan, gastrointestinal tract Vitamin D deficiency Hypothyroidism Adenoma of left adrenal gland HTN (hypertension) B12 deficiency Diabetes mellitus, type 2 Surgical History Hx of colonoscopy History of carpal tunnel release Hx of tonsillectomy Hx of section Family History Father Cancer Diabetes Hypertension Mother Diabetes Social History Household Members: Spouse Are you a primary resident care associate to a significant other at home: No Do you presently have visiting nurse or other home services: No Alcohol intake: never Patient Tobacco Use Status: Never used Tobacco service: No Current occupational status: unemployed Assessment & Plan Assessment & Plan (1) Adenoma of left adrenal gland: Code(s): D35.02 - Benign neoplasm of left adrenal gland Category: Medical Plan: This is a 56-year-old female with a history of a left adrenal adenoma with benign characteristics on imaging found to be non-. secretory. The plan is to recheck a 1 mg dexamethasone suppression test with dexamethasone level. Orders: Orders Dexamethasone 1 Week D35.02 - Benign neoplasm of left adrenal gland Cortisol Random 1 Week D35.02 - Benign neoplasm of left adrenal gland Medications: Refilled dexamethasone 1 mg PO ONCE 1 tab 0RF Coding Level of Care Code Est Pt Level 3 (83466) Diagnoses Adenoma of left adrenal gland D35.02
[2024-01-30 10:29] VITALS: BP 132/90; PULSE 82; BMI 28.7
== END 2024-01-30 10:39 | disposition home or self-care (01) ==
PROVIDERS: PCP Internal Medicine; Visit Provider Internal Medicine Endocrinology, Diabetes & Metabolism
DX: D35.02 Benign neoplasm of left adrenal gland (principal)
CPT/HCPCS: 99213

== ENCOUNTER → 2024-01-30 10:26 | Outpatient (BNVA) | payer OTHER, SELFPAY | PROVIDERS: PCP Internal Medicine; Visit Provider Internal Medicine Endocrinology, Diabetes & Metabolism | DX: D35.02 Benign neoplasm of left adrenal gland (principal) | CPT/HCPCS: 99212 ==

== ENCOUNTER 2024-02-06 07:41 | Outpatient (REF) | payer OTHER, SELFPAY ==
[2024-02-06 10:37] LABS: Cortisol Random 1.6 ug/dL
[2024-02-15 14:29] LABS: Dexamethasone 449 ng/dL
== END 2024-02-06 07:42 | disposition home or self-care (01) ==
LOC: HO.LAB 07:41
PROVIDERS: PCP Internal Medicine; Visit Provider Internal Medicine Endocrinology, Diabetes & Metabolism
DX: D35.02 Benign neoplasm of left adrenal gland (principal)
CPT/HCPCS: 36415; 80299; 82533

== ENCOUNTER 2024-02-21 17:57 | Emergency (ER) | payer OTHER, SELFPAY ==
--- NOTE | ~2024-02-21 | CT_ITS ---
EXAMINATION: CT ABDOMEN AND PELVIS WITH CONTRAST CLINICAL INFORMATION: Abdominal pain and tenderness, right greater than left COMPARISON: CT abdomen pelvis 12/10/2020 TECHNIQUE: Multidetector volumetric images were obtained from the superior aspect of the liver through the pubic symphysis following administration 85 mL of Omnipaque 350 intravenous contrast. Sagittal and coronal reformatted images were obtained on the technologist's workstation. Oral contrast: No This CT examination was performed using dose optimization techniques as appropriate, variously including the following: *Automated exposure control *Adjustment of mA and/or kV according to patient size (this includes techniques or standardized protocols for targeted exams where dose is matched to indication/reason for exam; i.e. extremities or head) *Use of iterative reconstruction technique DLP: 437 mGy-cm FINDINGS: LUNG BASES: The visualized lung bases are unremarkable. LIVER, GALLBLADDER, AND BILIARY TREE: The liver is normal in size, shape, and attenuation. No focal hepatic lesion or biliary ductal dilatation is present. The gallbladder is unremarkable with no evidence of radiopaque gallstones, gallbladder wall thickening, or obvious pericholecystic inflammatory changes. PANCREAS: Unremarkable. SPLEEN: Unremarkable. ADRENAL GLANDS: 1.4 cm water density left adrenal mass consistent with a benign adenoma. KIDNEYS AND URETERS: The kidneys are normal in size, shape, and attenuation. No hydronephrosis, hydroureter, or calculi seen. No perinephric stranding. BLADDER: Unremarkable. GASTROINTESTINAL TRACT: The small and large bowel are unremarkable. The previously seen fecalization of the distal small bowel is significantly improved. The appendix is unremarkable. ABDOMINAL WALL: No significant hernia is appreciated. LYMPH NODES: No retroperitoneal lymphadenopathy. VASCULAR: Unremarkable. PELVIC VISCERA: Unremarkable. OSSEOUS STRUCTURES: Unremarkable. CT/CT abdomen pelvis w IV con IMPRESSION: 1. A cause for the patient's abdominal pain and tenderness has not been found. 2. Incidental note made of a benign left adrenal adenoma. Fleischner guidelines were followed.
--- NOTE | ~2024-02-21 | XR_ITS ---
EXAMINATION: XR ABDOMEN KUB CLINICAL INDICATION: Abdominal pain for 3 days. COMPARISON: CT abdomen pelvis dated 12/10/2020. TECHNIQUE: 2 radiographs of the abdomen. FINDINGS: The bowel gas pattern is normal with no evidence of ileus or obstruction. There is a moderate volume of stool throughout the colon. No unusual soft tissue calcifications are noted. The bones are unremarkable. XR/XR KUB IMPRESSION: Nonobstructive bowel gas pattern. Moderate volume of stool throughout the colon.
[2024-02-21 18:15] VITALS: BP 140/80; PULSE 78; RESP 16; TEMP 36.6; O2SAT 99; BMI 29.0
[2024-02-21 18:51] LABS: MANUAL DIFF FLAG NO
[2024-02-21 18:52] LABS: Basophils Absolute Auto 0.1 X10*3/uL (0.0-0.2); Basophils Percent Auto 0.5 % (0-2); Eosinophils Absolute Auto 0.1 X10*3/uL (0.0-0.4); Eosinophils Percent Auto 0.6 % (0-4); Hematocrit 33.9 % (37.0-47.0); Hemoglobin 11.3 g/dl (12.0-16.0); Imm Gran Abs Auto 0.02 X10*3/uL (0.00-0.03); Imm Gran Pct Auto 0.2 % (0.0-0.4); Lymphocytes Percent Auto 29.3 % (20-40); Mean Corpuscular HGB Conc 33.3 g/dl (31.0-35.0); Mean Corpuscular Hemoglobin 26.9 pg (27.0-33.0); Mean Corpuscular Volume 80.7 fL (80.0-98.0); Mean Platelet Volume 8.4 fL (9.4-12.3); Monocytes Absolute Auto 0.6 X10*3/uL (0.1-1.2); Monocytes Percent Auto 5.9 % (2-11); Neutrophils Absolute Auto 6.4 x10*3/uL (2.0-8.3); Neutrophils Percent Auto 63.5 % (45-73); Platelet Count 391 X10*3/uL (160-400); Red Cell Distribution Width 13.7 % (11.0-16.0); White Blood Count 10.1 X10*3/uL (4.8-10.8)
[2024-02-21 19:04] LABS: Alanine Aminotransferase 12 U/L (0-31); Albumin Level 4.1 g/dL (3.5-5.0); Alkaline Phosphatase 68 U/L (39-117); Anion Gap 12 (12-20); Aspartate Amino Transferase 17 U/L (5-31); Bilirubin Total 0.4 mg/dL (0.0-1.0); Blood Urea Nitrogen 6 mg/dL (9-16); Calcium 9.8 mg/dL (8.4-10.2); Carbon Dioxide 27 mmol/L (22-29); Chloride 93 mmol/L (96-108); Creatinine Clr Calc Pharmacy 71.8; Estimated Glomerular Filt Rate > 60; Glucose Random 103 mg/dL (60-115); Lipase 21 U/L (8-78); Magnesium 1.6 mg/dL (1.6-2.6); Potassium 3.2 mmol/L (3.3-5.1); Sodium 129 mmol/L (135-145); Total Protein 6.8 g/dL (6.5-8.0)
[2024-02-21 19:23] LABS: Appearance Urine Clear; Color Urine Yellow; Glucose Urine UA Negative (Negative); Leukocyte Esterase Urine Large (3+) (Negative); Nitrite Urine Negative (Negative); PH 6.5 (5.0-9.0); Specific Gravity - Urine <= 1.005 (1.005-1.025); UMIC TRIGGER UACC YES; Urine Blood Negative (Negative); Urine Ketones Negative (Negative); Urine Protein Negative (Neg-Trace)
[2024-02-21 19:28] LABS: Bacteria Urine None Seen (None Seen); Hyaline Casts Urine 0-2 /LPF (0-2); RBC Urine 0-2 /HPF (0-2); Squamous Epithelial Cell Urine 0-2 /HPF (0-2); UACC Culture Trigger YES; WBC Urine 21-50 /HPF (0-5)
[2024-02-21 20:49] VITALS: BP 140/82; PULSE 67; RESP 17; TEMP 36.7; O2SAT 98
--- NOTE | 2024-02-21 20:55 | ED.GENADULT ---
HPI - General Adult General Chief complaint: Abdominal Pain Stated complaint: abd pain Time Seen by Provider: 02/21/24 20:55 History of Present Illness ED Provider: Grecia SANCHEZ narrative: The patient is a 58-year-old woman who is generally in fairly good health. She has a history of 2 C-sections. No other significant surgical history. She comes to the emergency room for evaluation of abdominal pain that has been bothering her for the last 3 days. She has been having pain primarily in her upper abdomen. She has also felt constipated and had difficulty passing stool. She has also had urinary discomfort. This morning she went to an urgent care center where she was prescribed nitrofurantoin for a possible urinary tract infection. This evening she tried to have a bowel movement and was unable to pass either stool or urine. She became very worried about this and thought something very wrong might be at work and so came to the emergency room. The patient says she has never had abdominal pains like this before. No fever. No vomiting. Related Data Home Medications ?Medication ?Instructions ?Recorded ?Confirmed cholecalciferol (vitamin D3) 25 25 mcg PO DAILY 08/05/20 10/27/23 mcg (1,000 unit) capsule hydrochlorothiazide 25 mg tablet 25 mg PO DAILY 11/02/21 10/27/23 losartan 100 mg tablet 100 mg PO DAILY 11/02/21 10/27/23 metformin 1,000 mg tablet 1,000 mg PO BID 11/02/21 10/27/23 cyanocobalamin (vitamin B-12) 1 ml IM QMONTH 09/14/22 10/27/23 1,000 mcg/mL injection solution loratadine 10 mg tablet 10 mg PO DAILY 09/14/22 10/27/23 fluticasone propionate 110 2 puff inhalation BID 09/26/22 10/27/23 mcg/actuation HFA aerosol inhaler levothyroxine 50 mcg tablet 1 tab PO DAILY 10/05/22 10/27/23 cyclobenzaprine 10 mg tablet 10 mg PO BEDTIME 01/26/23 10/27/23 lidocaine 4 % topical patch 0 patch topical 01/26/23 10/27/23 (Lidocaine Pain Relief) budesonide 90 mcg/actuation breath 1 inh inhalation BID 01/31/24 activated powder inhaler (Pulmicort Flexhaler) Previous Rx's ?Medication ?Instructions ?Recorded albuterol sulfate 90 mcg/actuation 2 puff inhalation Q4-6H PRN 06/11/22 aerosol inhaler (ProAir HFA) shortness of breath or wheezing #8.5 grams Shower Chair #1 ea 09/26/22 acetaminophen 325 mg tablet 650 mg (2 x 325 mg) PO Q6H PRN 10/07/22 Pain, Mild (Pain Scale 1-3) 30 days #240 tabs celecoxib 200 mg capsule 200 mg PO BID 30 days #60 caps 11/15/22 diclofenac epolamine 1.3 % 1 patch topical BID #30 ea 05/17/23 transdermal 12 hour patch dexamethasone 1 mg tablet 1 mg PO ONCE #1 tab 01/30/24 omeprazole 40 mg capsule,delayed 40 mg PO DAILY #30 caps 02/22/24 release Allergies Allergy/AdvReac Type Severity Reaction Status Date / Time ibuprofen Allergy Severe stomach Verified 02/21/24 18:15 upset aspirin Allergy Unknown Gastrointestinal Verified 02/21/24 18:15 Upset lisinopril AdvReac Cough Verified 02/21/24 18:15 Review of Systems Review of Systems: Yes all other systems are reviewed and are negative PMFSH Past Medical History Medical History Asthma Allergic rhinitis Strict vegetarian diet Asthma Seasonal allergies Degenerative, intervertebral disc, cervical Diabetes mellitus Osteoarthritis of patellofemoral joint Abnormal CT scan, gastrointestinal tract Vitamin D deficiency Hypothyroidism Adenoma of left adrenal gland HTN (hypertension) B12 deficiency Diabetes mellitus, type 2 Surgical History Hx of colonoscopy History of carpal tunnel release Hx of tonsillectomy Hx of section Family History Family History Father Cancer Diabetes Hypertension Mother Diabetes Social History Social History Household Members: Spouse Are you a primary manager of care to a significant other at home: No Do you presently have visiting nurse or other home services: No Alcohol intake: never Patient Tobacco Use Status: Never used Tobacco Smoked in Last 30 Days: No Advance Directives: No Advance Directives Information Provided: No Patient : No service: No Current occupational status: unemployed Physical Exam ED Vital Signs: Vital Signs - 24 hr 02/21/24 18:15 02/21/24 20:49 02/21/24 23:10 Temperature 97.8 F 98.1 F 97.1 F Pulse Rate 78 67 80 Respiratory Rate 16 17 17 Blood Pressure 140/80 H 140/82 H 142/77 H Pulse Oximetry 99 98 100 Oxygen Delivery Method Room Air Room Air Room Air BMI result Body Mass Index 29.0 Const Other: The patient is awake, alert, pleasant, cooperative. She does not appear in obvious acute distress. HENMT Other: Face is symmetrical. Mucous membranes moist. Eyes Other: Pupils are round equal, conjunctivae are clear, extraocular movements intact. Neck Neck: Yes no JVD Resp Effort & Inspection: normal respiratory effort Auscultation: clear to auscultation bilaterally Cardio Rate: regular rate Rhythm: regular rhythm Heart sounds: S1 normal heart sound present and S2 normal heart sound present GI Other: The patient is tender in the epigastrium and in the right upper quadrant. She also has some lower abdominal tenderness mostly in the mid abdomen. Skin Other: Skin is dry and unremarkable Neuro Other: The patient is awake and alert with a normal mental status. She is grossly neurologically intact. Extrem Other: No peripheral edema Medications Administered Discontinued Medications Generic Name Dose Route Start Last Admin Trade Name Freq PRN Reason Stop Dose Admin Sodium Chloride 1,000 mls @ 999 mls/hr 02/21/24 21:15 02/21/24 22:15 Ns IV 02/21/24 22:15 Infused .Q1H1M MARY ANNE Infusion Iohexol 100 ml 02/21/24 22:10 02/21/24 22:11 Iohexol 350 Mg/Ml 100 Ml Infus..Btl IV 02/21/24 22:11 85 ml ONCE ONE Administration Medical Decision Making Medical Decision Making [facility] Narrative: The patient is a 58-year-old female who presents with abdominal pain. She was started on nitrofurantoin for a possible UTI at an urgent care center this morning. This evening she had worsening pain and she also felt that she could not pass a bowel movement. On exam she has some right upper quadrant tenderness. The patient's urinalysis is consistent with a probable UTI. She has already been started on Macrobid. Her urine pH is 6.5. This is probably an appropriate antibiotic. Given her abdominal pain and her concern about constipation we obtained a CT of the abdomen and pelvis. This did not show any definite acute problem but I felt there was a large bladder volume on the CT scan. Apparently the patient voided immediately after the CT scan. A bladder volume at that time with the bladder scanner showed a volume of 270 mL. There was a long delay in the results of the CT scan. When I went to speak to the patient again she had a sense of a very full bladder. A repeat bladder scan was done and she had 711 mL. She was then able to void and her postvoid residual was 84 mL. I suspect that the patient's upper abdominal pain is probably gastritis. She will be started on omeprazole. The patient was concerned about constipation but I really do not see a great deal of stool on her CT scan and I certainly do not see any fecal impaction. The patient will therefore be discharged with instructions to continue with the nitrofurantoin she was previously prescribed. She may take that the omeprazole for what I think is gastritis discomfort of the upper abdomen. If she has concerns that she is constipated she should use MiraLax. She should follow up soon with your regular doctor. Lab Data 02/21/24 18:46 02/21/24 18:46 Labs: Lab Results 02/21/24 02/21/24 Range/Units 18:46 19:16 WBC 10.1 (4.8-10.8) X10*3/uL RBC 4.20 (4.20-5.50) X10*6/uL Hgb 11.3 L (12.0-16.0) g/dl Hct 33.9 L (37.0-47.0) % MCV 80.7 (80.0-98.0) fL MCH 26.9 L (27.0-33.0) pg MCHC 33.3 (31.0-35.0) g/dl RDW 13.7 (11.0-16.0) % Plt Count 391 (160-400) X10*3/uL MPV 8.4 L (9.4-12.3) fL Immature Gran % (Auto) 0.2 (0.0-0.4) % Neut % (Auto) 63.5 (45-73) % Lymph % (Auto) 29.3 (20-40) % [place] % (Auto) 5.9 (2-11) % Eos % (Auto) 0.6 (0-4) % Baso % (Auto) 0.5 (0-2) % Lymph # (Auto) 3.0 (1.2-4.9) X10*3/uL [place] # (Auto) 0.6 (0.1-1.2) X10*3/uL Eos # (Auto) 0.1 (0.0-0.4) X10*3/uL Baso # (Auto) 0.1 (0.0-0.2) X10*3/uL Abs Immat Gran (auto) 0.02 (0.00-0.03) X10*3/uL Absolute Neuts (auto) 6.4 (2.0-8.3) x10*3/uL Absolute Nucleated RBC 0.000 (0.0-0.012) X10*3/uL Nucleated RBC % (auto) 0.0 (0.0-0.2) /100WBC Sodium 129 L (135-145) mmol/L Potassium 3.2 L (3.3-5.1) mmol/L Chloride 93 L (96-108) mmol/L Carbon Dioxide 27 (22-29) mmol/L Anion Gap 12 (12-20) BUN 6 L (9-16) mg/dL Creatinine 0.67 (0.5-1.4) mg/dL Estim Creat Clear Calc 71.8 Estimated GFR > 60 Random Glucose 103 (60-115) mg/dL Calcium 9.8 (8.4-10.2) mg/dL Magnesium 1.6 (1.6-2.6) mg/dL Total Bilirubin 0.4 (0.0-1.0) mg/dL AST 17 (5-31) U/L ALT 12 (0-31) U/L Alkaline Phosphatase 68 (39-117) U/L C-Reactive Protein 0.26 (< or = 0.50) mg/dL Total Protein 6.8 (6.5-8.0) g/dL Albumin 4.1 (3.5-5.0) g/dL Lipase 21 (8-78) U/L Urine Color Yellow Urine Appearance Clear Urine pH 6.5 (5.0-9.0) Ur Specific [place] <= 1.005 (1.005-1.025) Urine Protein Negative (Neg-Trace) mg/dL Urine Glucose (UA) Negative (Negative) mg/dL Urine Ketones Negative (Negative) mg/dL Urine Blood Negative (Negative) Urine Nitrite Negative (Negative) Ur Leukocyte Esterase Large (3+) H (Negative) Urine RBC 0-2 (0-2) /HPF Urine WBC 21-50 H (0-5) /HPF Ur Squamous Epith Cells 0-2 (0-2) /HPF Urine Bacteria None Seen (None Seen) Hyaline Casts 0-2 (0-2) /LPF Discharge Plan Discharge Clinical Impression: Abdominal pain, Urinary tract infection Patient Disposition: Home, Self-Care Instructions: Gastritis (ED) Additional Instructions: I think that your upper abdominal pain is probably being caused by a stomach acid problem. This is a condition that we often call ?gastritis.? I have sent a prescription for medication called omeprazole to your pharmacy. This is an acid reducing medication that usually helps with gastritis. Your urine test this evening is consistent with a urinary tract infection. Please continue to take the nitrofurantoin you were previously prescribed. I do not think the CT scan is showing a remarkable amount of constipation. Nevertheless it might be useful for you to take polyethylene glycol (MiraLax) once a day for the next several days. This is an thoi-vcf-qfzqejo medication you may by at a pharmacy. The store brand is usually the least expensive. Please plan on contacting your regular doctor's office tomorrow morning to make a follow up appointment to discuss your symptoms further. Return to the emergency room if significantly worse. Prescriptions: New omeprazole 40 mg capsule,delayed release(DR/EC) 40 mg PO DAILY Qty: 30 0RF No Action (DME) Shower Chair Misc See Rx Instructions .Route Qty: 1 0RF Rx Instructions: As directed celecoxib 200 mg capsule 200 mg PO BID 30 Days Qty: 60 0RF Pulmicort Flexhaler 90 mcg/actuation aerosol powdr breath activated 1 inh inhalation BID cyanocobalamin (vitamin B-12) 1,000 mcg/mL solution 1 ml IM QMONTH loratadine 10 mg Tablet 10 mg PO DAILY fluticasone propionate 110 mcg/actuation Hfa Aerosol Inhaler 2 puff INHALATION BID levothyroxine 50 mcg tablet 1 tab PO DAILY acetaminophen 325 mg Tablet 650 mg PO Q6H PRN (Reason: Pain, Mild (Pain Scale 1-3)) 30 Days Qty: 240 0RF albuterol sulfate [ProAir HFA] 90 mcg/actuation HFA aerosol inhaler 2 puff inhalation Q4-6H PRN (Reason: shortness of breath or wheezing) Qty: 8.5 0RF diclofenac epolamine 1.3 % patch 12 hour 1 patch topical BID Qty: 30 0RF cholecalciferol (vitamin D3) 25 mcg (1,000 unit) capsule 25 mcg PO DAILY losartan 100 mg tablet 100 mg PO DAILY hydrochlorothiazide 25 mg tablet 25 mg PO DAILY metformin 1,000 mg tablet 1,000 mg PO BID cyclobenzaprine 10 mg tablet 10 mg PO BEDTIME lidocaine [Lidocaine Pain Relief] 4 % adhesive patch,medicated 0 patch topical dexamethasone 1 mg tablet 1 mg PO ONCE Qty: 1 0RF Print Language: [place]an
[2024-02-21] MEDS: 0.9 % Sodium Chloride 1,000 ML 999 ML IV (21:17)
[2024-02-21] MEDS: iohexoL 350 MG/ML 100 ML INFUS..BTL IV (22:11)
--- NOTE | 2024-02-21 22:42 | PC.NURSE ---
pt rec 1l IVF- Pt bladder scanned per MD order- pt currently holding 271mls of urine- pt denies any urinary symptoms sts that she feels as though she is emptying her bladder
[2024-02-21 23:10] VITALS: BP 142/77; PULSE 80; RESP 17; TEMP 36.2; O2SAT 100
[2024-02-21 23:29] LABS: C Reactive Protein 0.26 mg/dL (< or = 0.50)
[2024-02-22 00:59] LABS: Glucose, Whole Blood 103 mg/dL (60-115)
[2024-02-22 02:40] VITALS: BP 146/58; PULSE 66; RESP 18; TEMP 37.1; O2SAT 97
== END 2024-02-22 01:10 | disposition home or self-care (01) ==
PROVIDERS: Physician Assistant Medical; Emergency Provider Emergency Medicine; PCP Internal Medicine
DX: K29.70 Gastritis, unspecified, without bleeding (principal); N39.0 Urinary tract infection, site not specified; R11.2 Nausea with vomiting, unspecified; R10.9 Unspecified abdominal pain; Z79.899 Other long term (current) drug therapy
CPT/HCPCS: 36415; 74018; 74177; 80053; 81001; 82947; 83690; 83735; 85025; 86140; 87086; 96360; 99284; 99285; Q9967

== ENCOUNTER 2024-04-05 08:05 | Outpatient (REF) | payer OTHER, SELFPAY ==
[2024-04-05 09:38] LABS: Thyroid Stimulating Hormone 3.13 uIU/mL (0.32-4.0)
== END 2024-04-05 08:06 | disposition home or self-care (01) ==
LOC: HO.LAB 08:05
PROVIDERS: PCP Internal Medicine; Visit Provider Internal Medicine
DX: E03.8 Other specified hypothyroidism (principal); E11.9 Type 2 diabetes mellitus without complications; I10 Essential (primary) hypertension; J45.909 Unspecified asthma, uncomplicated; R05.9 Cough, unspecified
CPT/HCPCS: 36415; 84443

== ENCOUNTER 2024-04-23 15:18 | Outpatient (REF) | payer OTHER, SELFPAY | END 2024-04-23 15:19 | disposition home or self-care (01) | LOC: HO.SH 15:18 | PROVIDERS: Visit Provider Internal Medicine | DX: Z01.118 Encounter for examination of ears and hearing with other abnormal findings (principal); H93.293 Other abnormal auditory perceptions, bilateral | CPT/HCPCS: 92553; 92555; 92567 ==

== ENCOUNTER 2024-07-25 07:31 | Outpatient (REF) | payer OTHER, SELFPAY ==
[2024-07-25 08:18] LABS: Estimated Average Glucose 114 mg/dL; Hemoglobin A1C 115.8103 umol/L; Hemoglobin A1c % 5.6 % (<6.0); Total Hemoglobin (HGBA1C) 3092.0046 umol/L
[2024-07-25 08:39] LABS: Alanine Aminotransferase 16 U/L (0-31); Albumin Level 4.3 g/dL (3.5-5.0); Alkaline Phosphatase 66 U/L (39-117); Anion Gap 13 (12-20); Aspartate Amino Transferase 21 U/L (5-31); Bilirubin Total 0.5 mg/dL (0.0-1.0); Blood Urea Nitrogen 7 mg/dL (9-16); Calcium 9.9 mg/dL (8.4-10.2); Carbon Dioxide 27 mmol/L (22-29); Chloride 106 mmol/L (96-108); Estimated Glomerular Filt Rate > 60; Glucose Random 102 mg/dL (60-115); Potassium 3.5 mmol/L (3.3-5.1); Sodium 142 mmol/L (135-145); Total Protein 7.3 g/dL (6.5-8.0)
== END 2024-07-25 07:32 | disposition home or self-care (01) ==
LOC: HO.LAB 07:31
PROVIDERS: PCP Internal Medicine; Visit Provider Internal Medicine
DX: E11.9 Type 2 diabetes mellitus without complications (principal); H26.9 Unspecified cataract; H90.5 Unspecified sensorineural hearing loss; J45.909 Unspecified asthma, uncomplicated
CPT/HCPCS: 36415; 80053; 83036

== ENCOUNTER 2024-09-18 08:07 | Outpatient (REF) | payer OTHER, SELFPAY ==
[2024-09-18 09:36] LABS: Thyroid Stimulating Hormone 1.71 uIU/mL (0.32-4.0)
== END 2024-09-18 08:08 | disposition home or self-care (01) ==
LOC: HO.LAB 08:07
PROVIDERS: PCP Internal Medicine; Visit Provider Internal Medicine
DX: E03.8 Other specified hypothyroidism (principal); E11.9 Type 2 diabetes mellitus without complications; I10 Essential (primary) hypertension; J45.909 Unspecified asthma, uncomplicated; R05.9 Cough, unspecified
CPT/HCPCS: 36415; 84443

== ENCOUNTER 2024-12-28 09:41 | Outpatient (REF) | payer OTHER, SELFPAY ==
[2024-12-28 09:57] LABS: MANUAL DIFF FLAG NO
[2024-12-28 10:26] LABS: Basophils Percent Auto 0.7 % (0-2); Eosinophils Absolute Auto 0.2 X10*3/uL (0.0-0.4); Hematocrit 34.5 % (37.0-47.0); Imm Gran Abs Auto 0.02 X10*3/uL (0.00-0.03); Imm Gran Pct Auto 0.3 % (0.0-0.4); Lymphocytes Absolute Auto 2.5 X10*3/uL (1.2-4.9); Lymphocytes Percent Auto 41.7 % (20-40); Mean Corpuscular HGB Conc 31.9 g/dl (31.0-35.0); Mean Corpuscular Hemoglobin 25.5 pg (27.0-33.0); Mean Platelet Volume 8.9 fL (9.4-12.3); Monocytes Absolute Auto 0.5 X10*3/uL (0.1-1.2); Monocytes Percent Auto 7.6 % (2-11); Neutrophils Absolute Auto 2.7 x10*3/uL (2.0-8.3); Neutrophils Percent Auto 45.7 % (45-73); Platelet Count 345 X10*3/uL (160-400); Red Blood Count 4.31 X10*6/uL (4.20-5.50); Red Cell Distribution Width 14.6 % (11.0-16.0); White Blood Count 5.9 X10*3/uL (4.8-10.8)
[2024-12-28 10:40] LABS: Estimated Average Glucose 117 mg/dL; Hemoglobin A1c % 5.7 % (<6.0)
[2024-12-28 10:46] LABS: Creatinine Urine 115.77 mg/dL; Microalbum/Creatinine Ratio Ur 13.8 ug/mg cr (<30)
[2024-12-28 10:48] LABS: Alanine Aminotransferase 20 U/L (0-31); Albumin Level 4.1 g/dL (3.5-5.0); Alkaline Phosphatase 77 U/L (39-117); Anion Gap 11 (12-20); Aspartate Amino Transferase 26 U/L (5-31); Bilirubin Total 0.3 mg/dL (0.0-1.0); Blood Urea Nitrogen 9 mg/dL (9-16); Calcium 9.4 mg/dL (8.4-10.2); Carbon Dioxide 29 mmol/L (22-29); Chloride 105 mmol/L (96-108); Cholesterol 170 mg/dL (<200); Estimated Glomerular Filt Rate > 60; Glucose Random 96 mg/dL (60-115); HDL Cholesterol 76 mg/dL (>40); LDL Cholesterol Calculated 72 mg/dL (<100); Potassium 3.7 mmol/L (3.3-5.1); Sodium 141 mmol/L (135-145); Total Protein 6.8 g/dL (6.5-8.0); Triglycerides 112 mg/dL (<150)
[2024-12-28 11:15] LABS: Vitamin B12 505 pg/mL (200-900)
== END 2024-12-28 09:42 | disposition home or self-care (01) ==
LOC: HO.LAB 09:41
PROVIDERS: PCP Internal Medicine; Visit Provider Internal Medicine
DX: Z00.00 Encounter for general adult medical examination without abnormal findings (principal); M54.9 Dorsalgia, unspecified; E11.9 Type 2 diabetes mellitus without complications; E03.8 Other specified hypothyroidism; D51.9 Vitamin B12 deficiency anemia, unspecified
CPT/HCPCS: 36415; 80053; 80061; 82043; 82570; 82607; 83036; 85025

== ENCOUNTER 2025-01-28 11:53 | Outpatient (REF) | payer OTHER, SELFPAY ==
--- OUTSIDE RECORDS SUMMARY | 2025-01-28 12:49 | XMS_ITS | Patient Health Record ---
Author Organization [facility] Address [address] [place] [address] Care Team Providers Care Director Commercial Sales Name Role Phone Leslie Lundy Primary Care Provider Calixto Corado Unavailable [phone] Allergies Allergen (clinical drug ingredient) Drug/Non Drug Allergy documented on EMR Reaction Allergy Type Onset Date Status dust , seasonal changes (uncoded) Unknown Allergy Active Reason For Referral No Information Medications Medication SIG (Take, Route, Frequency, Duration) Notes Start Date End Date Status Qvar Not-Taking ProAir HFA Not-Takin g Loratadine 10 MG 1 tablet Orally Once a day/prn Active metFORMIN HCl Active Lisinopril 5 MG Orally Once a day Active Flonase as needed for allergies Active Multivitamin Adult A ctive Vitamin B 12 100 MCG Orally DAILY Active Vitamin D Active iron daily/prn Active Synthroid Active Dicyclomine HCl 10 MG 1-2 capsules Orall y 4 times a day prn abdominal bloating or cramps---you can also take it before the meals to try to prevent symptoms for 30 day(s) 04/20/2018 Active Problems Problem Type SNOMED Code ICD Code Onset Dates Problem Status W/U Status Risk Notes Problem [id number] Encounter for screening for malignant neoplasm of colon (Z12.11) Active confirmed Problem 596799363 Irritable bowel syndrome with diarrhea (K58.0) Active confirmed Problem Screening for malignant neoplasm of rectum (781123667) Encounter for screening for malignant neoplasm of rectum (Z12.12) Active confirmed Problem [id number] Pre-procedural laboratory examination (Z01.812) Active confirmed Plan Of Treatment Future Test Test Name Order Date COLONOSCOPY 05/24/2016 Insurance Providers Payer Name Payer Address Payer Phone Subscriber Number Group Number Insured Name Patient Relationship to Insured Coverage Start Date Coverage End Date [facility] [address] [address] [place], [place] [id number] [id number] LEE Self - patient is the insured Medical (General) History Medical History History ICD Code NIDDM Denies [place],CVA,Lung disease,renal disease Hypertension Allergies Hypothyroidism Rheumatoid arthritis Anemia--Hgb 11.0 02/2016, Iron 25 and Iro n sat 6% 04/2016 Normal colonoscopy to cecum and TI in 2016 IBS Surgical History Surgery Date(Month/Year) x2 Carpal tunnel release right hand Cyst removed both axillae age 18 Tonsillectomy
[2025-02-07 20:57] LABS: Saliva Cortisol 0.24 mcg/dL
== END 2025-01-28 11:54 | disposition home or self-care (01) ==
LOC: HO.LNP 11:53
PROVIDERS: Visit Provider Internal Medicine Endocrinology, Diabetes & Metabolism
DX: D35.02 Benign neoplasm of left adrenal gland (principal)
CPT/HCPCS: 82530

== ENCOUNTER 2025-01-29 07:59 | Outpatient (AMB) | payer OTHER, SELFPAY ==
[2025-01-29 08:01] VITALS: BP 106/78; PULSE 74; O2SAT 98; BMI 28.6
--- NOTE | 2025-01-29 08:01 | A.OFFVIS_ITS ---
Vital Signs 01/29/25 08:01 Height 4 ft 10 in Weight 136 lb 10.986 oz BMI 28.6 BP 106/78 Blood Pressure Location Rt brachial Position Sitting Pulse 74 Pulse Source Pulse Oximeter Pulse Oximetry (%) 98 Intake Visit Reasons: f/u adrenal adenoma- Intake Note: Patient present today for adrenal adenoma follow up visit. Heart Doctor Required: No Accompanied by: Self / Same As Patient Allergies ibuprofen Allergy (Severe, Verified 01/29/25 08:03) stomach upset aspirin Allergy (Unknown, Verified 01/29/25 08:03) Gastrointestinal Upset lisinopril Adverse Reaction (Verified 01/29/25 08:03) Cough Medication List - Last Reconciled 01/29/25 by Calixto Zarate MD albuterol sulfate 90 mcg/actuation (ProAir HFA) 2 puffs inhalation Q4-6H PRN budesonide 90 mcg/actuation (Pulmicort Flexhaler) 1 inh inhalation BID cyanocobalamin (vitamin B-12) 1 mL IM QMONTH fluticasone propionate 110 mcg/actuation 2 puffs inhalation BID hydrochlorothiazide 25 mg PO DAILY levothyroxine 1 tab PO DAILY loratadine 10 mg PO DAILY losartan 100 mg PO DAILY metformin 1,000 mg PO BID multivitamin 1 tab PO DAILY Shower Chair As directed HPI Comments Details: 59 yo female today for fup visit, for left adrenal nodule. She is still feeling tired. Patient has a left adrenal adenoma, she has negative workup to times 2016 and 2018. She is here today for follow-up. She has PMH of depression, panic attacks, hypertension, hyperlipidemia, seasonal allergies, diabetes mellitus, obesity, low vitamin D, Shad's thyroiditis and hypothyroidism. She is complaining of occasional episodes of sweating associated with headache She has personal age appropriate screening for cancer negative. CT abdomen/pelvis 02/09/18 There is a 1.3 x 0.9 cm left adrenal lesion measuring 34 Hounsfield units. MRI 03/02/18 Abdomen Left adrenal nodule measures 1.5 x 1 cm, correlate with the nodule seen on the CT scan, this exhibits no enhancement, complete signal drop on out of phase sequence, this is compatible with adrenal adenoma. She is complaining of pain in both lower extremities that extends up to the thigh. She denies Hirsutism, clitoromegaly, she has normal libido, no frontotemporal balding, denies dizziness, denies weakness, acne, proximal muscle weakness, denies easy bruisability, violaceous stretch pickett, denies nausea, vomiting, diarrhea, palpitations, + sweating, denies flushing, headache, + anxiety, irritability. She is taking lucas doses of Biotin. Laboratory Tests 05/17/18 05/17/18 05/17/18 08:15 08:15 08:15 Sodium Potassium Creatinine Random Glucose Hemoglobin A1c Hemoglobin A1c % Renin 0.69 Aldosterone 5 TSH TSH 3rd Generation Total Testosterone 15 Free Testosterone 1.7 DHEA Sulfate 36 Cortisol Cortisol Baseline ACTH Resp to Cosyntrop Cortisol Resp ACTH 30m Cortisol Resp ACTH 60m ACTH Pl Free Catecholamine 457 Norepinephrine 457 Plasma Free Metaneph 29 Plasma Free Normeta 64 Plas Total Metaneph 93 Dexamethasone 06/05/18 01/29/19 01/30/20 08:28 08:07 08:07 Sodium Potassium Creatinine Random Glucose Hemoglobin A1c Hemoglobin A1c % Renin Aldosterone TSH TSH 3rd Generation Total Testosterone Free Testosterone DHEA Sulfate Cortisol 1.7 Cortisol Baseline 9.7 ACTH Resp to Cosyntrop 0835 Cortisol Resp ACTH 30m 25.5 Cortisol Resp ACTH 60m 29.9 ACTH <[address] Free Catecholamine Norepinephrine Plasma Free Metaneph Plasma Free Normeta Plas Total Metaneph Dexamethasone SEE NOTE 03/09/20 03/09/20 06/03/20 09:40 09:40 15:40 Sodium Potassium Creatinine Random Glucose Hemoglobin A1c 6.6 Hemoglobin A1c % Renin Aldosterone TSH 0.45 TSH 3rd Generation 1.50 Total Testosterone Free Testosterone DHEA Sulfate Cortisol Cortisol Baseline ACTH Resp to Cosyntrop Cortisol Resp ACTH 30m Cortisol Resp ACTH 60m ACTH Pl Free Catecholamine Norepinephrine Plasma Free Metaneph Plasma Free Normeta Plas Total Metaneph Dexamethasone 06/03/20 06/03/20 15:40 15:40 Sodium 138 Potassium 3.8 Creatinine 0.80 Random Glucose 108 Hemoglobin A1c Hemoglobin A1c % 7.2 Renin Aldosterone TSH TSH 3rd Generation Total Testosterone Free Testosterone DHEA Sulfate Cortisol Cortisol Baseline ACTH Resp to Cosyntrop Cortisol Resp ACTH 30m Cortisol Resp ACTH 60m ACTH Pl Free Catecholamine Norepinephrine Plasma Free Metaneph Plasma Free Normeta Plas Total Metaneph Dexamethasone Workup has been negative for secretion including normal plasma metanephrines and normal 1 mg dexamethasone suppression test . No sx of pheo or Cushings . Recent midnight salivary cortisol is pending The patient is a 59-year-old female presenting for follow-up of an adrenal mass with benign characteristics. The adrenal mass was identified previously and has been characterized as benign based on imaging and laboratory tests. The patient underwent a midnight salivary cortisol test, which is pending, to further evaluate the mass's activity. The patient denies experiencing symptoms such as sudden sweating, headaches, palpitations, weight gain, or unusual stretch pickett, which could indicate hormonal activity from the mass. Previous tests, including a dexamethasone suppression test, showed a borderline result with a cortisol level of 1.6, prompting further evaluation with a nidnight salivary test. The patient has been informed about the potential for mild autonomous cortisol secretion (MACS), which could subtly affect blood pressure, blood sugar, and bone density. The patient is currently asymptomatic, with no significant changes in blood pressure or blood sugar levels. - Dexamethasone suppression test: Borderline result with cortisol level of 1.6 (normal <1.4). - Midnight salivary cortisol test: Pending results. [facility] Medical History Asthma Allergic rhinitis Strict vegetarian diet Asthma Seasonal allergies Degenerative, intervertebral disc, cervical Diabetes mellitus Osteoarthritis of patellofemoral joint Abnormal CT scan, gastrointestinal tract Vitamin D deficiency Hypothyroidism Adenoma of left adrenal gland HTN (hypertension) B12 deficiency Diabetes mellitus, type 2 Surgical History Hx of colonoscopy History of carpal tunnel release Hx of tonsillectomy Hx of section Family History Father Cancer Diabetes Hypertension Mother Diabetes Social History Household Members: Spouse Are you a primary healthcare financial analyst to a significant other at home: No Do you presently have visiting nurse or other home services: No Alcohol intake: never Patient Tobacco Use Status: Never used Tobacco service: No Current occupational status: unemployed Physical Exam Vital Signs: Last Vital Signs Pulse 74 01/29/25 08:01 BP 106/78 01/29/25 08:01 Pulse Ox 98 01/29/25 08:01 BMI result Body Mass Index 28.6 Assessment & Plan Assessment & Plan (1) Adenoma of left adrenal gland: Code(s): D35.02 - Benign neoplasm of left adrenal gland Category: Medical Plan: This is a 56-year-old female with a history of a left adrenal adenoma with benign characteristics on imaging found to be non-. secretory. The plan is to check the midnight salivary cortisol. If this is negative, could consider sending patient back to primary care provider next visit 1. Adrenal mass The adrenal mass has been characterized as benign based on imaging and laboratory tests. The patient is asymptomatic, and the mass is not currently producing hormones. A midnight salivary cortisol test is pending to confirm the absence of hormonal activity. If the test is normal, no further intervention is required, and the patient may be discharged to primary care. 2. Mild autonomous cortisol secretion MACS) The patient has been informed about the potential for MACS, which could affect blood pressure, blood sugar, and bone density. Currently, the patient is asymptomatic with stable blood pressure and blood sugar levels. Continued monitoring is advised, and the patient should report any new symptoms such as weight gain or changes in blood pressure or blood sugar. - Monitor for any new symptoms such as weight gain, stretch pickett, or changes in blood pressure or blood sugar. - Await the results of the midnight salivary cortisol test and follow up as advised. - If the test results are normal, you may not need further follow-up unless new symptoms develop. T The patient had an opportunity to ask questions regarding treatment plan. The patient expressed understanding and agreement with the above treatment plan. Patient was informed and verbally consented to the use of an ambient scribe for clinic note documentation during this visit. Coding Level of Care Code Est Pt Level 3 (60192) Diagnoses Adenoma of left adrenal gland D35.02
--- OUTSIDE RECORDS SUMMARY | 2025-01-29 08:02 | XMS_ITS | Patient Health Record ---
Author Organization [facility] Address [address] [place] [address] Care Team Providers Care Steamship Agent Name Role Phone Leslie Lundy Primary Care Provider Calixto Corado Unavailable [phone] Allergies Allergen (clinical drug ingredient) Drug/Non Drug [...] Problem Status W/U Status Risk Notes Problem [id number] Encounter for screening for malignant neoplasm of colon (Z12.11) Active confirmed Problem 080368222 Irritable bowel syndrome with diarrhea (K58.0) Active confirmed Problem Encounter for screening for malignant neoplasm of rectum (Z12.12) Active confirmed Problem 785808088 Pre-procedural laboratory examination (Z01.812) Active confirmed Plan Of Treatment Future Test Test Name Order Date COLONOSCOPY 05/24/2016 Insurance Providers Payer Name Payer Address Payer Phone Subscriber Number Group Number Insured Name Patient Relationship to Insured Coverage Start Date Coverage End Date [facility] [address] [address] [place], [place] [id number] JAGRUTI LEE Self - patient is the insured Medical (General) History Medical History History ICD Code NIDDM Denies [place],CVA,Lung disease,renal disease Hypertension Allergies Hypothyroidism Rheumatoid arthritis Anemia--Hgb 11.0 02/2016, Iron 25 and Iro n sat 6% 04/2016 Normal colonoscopy to cecum and TI in 2016 IBS Surgical History Surgery Date(Month/Year) x2 Carpal tunnel release right hand Cyst removed both axillae age 18 Tonsillectomy
== END 2025-01-29 08:24 | disposition home or self-care (01) ==
PROVIDERS: PCP Internal Medicine; Visit Provider Internal Medicine Endocrinology, Diabetes & Metabolism
DX: D35.02 Benign neoplasm of left adrenal gland (principal)
CPT/HCPCS: 99213

== ENCOUNTER → 2025-01-29 07:59 | Outpatient (BNVA) | payer OTHER, SELFPAY | PROVIDERS: PCP Internal Medicine; Visit Provider Internal Medicine Endocrinology, Diabetes & Metabolism | DX: D35.02 Benign neoplasm of left adrenal gland (principal) | CPT/HCPCS: 99212 ==

== ENCOUNTER 2025-02-25 08:11 | Outpatient (REF) | payer OTHER, SELFPAY ==
--- OUTSIDE RECORDS SUMMARY | 2025-02-25 08:18 | XMS_ITS | Patient Health Record ---
Author Organization [facility] Address [address] [place] [address] Care Team Providers Care Polysilicon Preparation Worker Name Role Phone Leslie Lundy Primary Care Provider Calixto Corado Unavailable [phone] Allergies Allergen (clinical drug ingredient) Drug/Non Drug [...] Problem Status W/U Status Risk Notes Problem [id number] Encounter for screening for malignant neoplasm of colon (Z12.11) Active confirmed Problem 408624442 Irritable bowel syndrome with diarrhea (K58.0) Active confirmed Problem Screening for malignant neoplasm of rectum (563896274) Encounter for screening for malignant neoplasm of rectum (Z12.12) Active confirmed Problem 761554814 Pre-procedural laboratory examination (Z01.812) Active confirmed Plan Of Treatment Future Test Test Name Order Date COLONOSCOPY 05/24/2016 Insurance Providers Payer Name Payer Address Payer Phone Subscriber Number Group Number Insured Name Patient Relationship to Insured Coverage Start Date Coverage End Date [facility] [address] [address] [place], [place] [id number] JAGRUTI LEE Self - patient is the insured Medical (General) History Medical History History ICD Code NIDDM Denies [place],CVA,Lung disease,renal disease Hypertension Allergies Hypothyroidism Rheumatoid arthritis Anemia--Hgb 11.0 02/2016, Iron 25 and Iro n sat 6% 04/2016 Normal colonoscopy to cecum and TI in 2016 IBS Surgical History Surgery Date(Month/Year) x2 Carpal tunnel release right hand Cyst removed both axillae age 18 Tonsillectomy
== END 2025-02-25 08:12 | disposition home or self-care (01) ==
LOC: HO.LAB 08:11
PROVIDERS: PCP Internal Medicine; Visit Provider Internal Medicine Endocrinology, Diabetes & Metabolism
DX: D35.02 Benign neoplasm of left adrenal gland (principal)
CPT/HCPCS: 36415; 80299; 82533

== ENCOUNTER 2025-04-14 09:37 | Outpatient (REF) | payer OTHER, SELFPAY ==
[2025-04-14 10:42] LABS: Hemoglobin A1C 128.8392 umol/L; Total Hemoglobin (HGBA1C) 2884.2094 umol/L
[2025-04-14 11:15] LABS: Alanine Aminotransferase 17 U/L (0-31); Albumin Level 4.4 g/dL (3.5-5.0); Alkaline Phosphatase 80 U/L (39-117); Anion Gap 10 (12-20); Aspartate Amino Transferase 25 U/L (5-31); Blood Urea Nitrogen 8 mg/dL (9-16); Calcium 9.4 mg/dL (8.4-10.2); Carbon Dioxide 27 mmol/L (22-29); Chloride 106 mmol/L (96-108); Estimated Glomerular Filt Rate > 60; Potassium 3.7 mmol/L (3.3-5.1); Sodium 139 mmol/L (135-145); Total Protein 6.9 g/dL (6.5-8.0)
--- OUTSIDE RECORDS SUMMARY | 2025-04-14 11:22 | XMS_ITS | Patient Health Record ---
Author Organization [facility] Address [address] [place] [address] Care Team Providers Care Director Of It Operations Name Role Phone Leslie Lundy Primary Care Provider Calixto Corado Unavailable [phone] Allergies Allergen (clinical drug ingredient) Drug/Non Drug [...] Problem Status W/U Status Risk Notes Problem 598680714 Encounter for screening for malignant neoplasm of colon (Z12.11) Active confirmed Problem 389207590 Irritable bowel syndrome with diarrhea (K58.0) Active confirmed Problem Screening for malignant neoplasm of rectum (545708385) Encounter for screening for malignant neoplasm of rectum (Z12.12) Active confirmed Problem 260478270 Pre-procedural laboratory examination (Z01.812) Active confirmed Plan Of Treatment Future Test Test Name Order Date COLONOSCOPY 05/24/2016 Insurance Providers Payer Name Payer Address Payer Phone Subscriber Number Group Number Insured Name Patient Relationship to Insured Coverage Start Date Coverage End Date [facility] [address] [address] [place], [place] [id number] JAGRUTI LEE Self - patient is the insured Medical (General) History Medical History History ICD Code NIDDM Denies [place],CVA,Lung disease,renal disease Hypertension Allergies Hypothyroidism Rheumatoid arthritis Anemia--Hgb 11.0 02/2016, Iron 25 and Iro n sat 6% 04/2016 Normal colonoscopy to cecum and TI in 2016 IBS Surgical History Surgery Date(Month/Year) x2 Carpal tunnel release right hand Cyst removed both axillae age 18 Tonsillectomy
[2025-04-14 11:31] LABS: Thyroid Stimulating Hormone 6.58 uIU/mL (0.32-4.0)
== END 2025-04-14 09:38 | disposition home or self-care (01) ==
LOC: HO.LAB 09:37
PROVIDERS: Visit Provider Internal Medicine
DX: E11.9 Type 2 diabetes mellitus without complications (principal); E03.8 Other specified hypothyroidism; J45.909 Unspecified asthma, uncomplicated; Z68.30 Body mass index [BMI] 30.0-30.9, adult
CPT/HCPCS: 36415; 80053; 83036; 84443

== ENCOUNTER 2025-07-22 08:40 | Outpatient (REF) | payer OTHER, SELFPAY ==
[2025-07-22 09:48] LABS: Alanine Aminotransferase 14 U/L (0-31); Albumin Level 4.3 g/dL (3.5-5.0); Alkaline Phosphatase 80 U/L (39-117); Anion Gap 13 (12-20); Aspartate Amino Transferase 25 U/L (5-31); Blood Urea Nitrogen 10 mg/dL (9-16); Calcium 9.4 mg/dL (8.4-10.2); Carbon Dioxide 26 mmol/L (22-29); Chloride 106 mmol/L (96-108); Cholesterol 152 mg/dL (<200); Estimated Glomerular Filt Rate > 60; HDL Cholesterol 64 mg/dL (>40); Potassium 3.6 mmol/L (3.3-5.1); Sodium 141 mmol/L (135-145); Total Protein 7.0 g/dL (6.5-8.0); Triglycerides 107 mg/dL (<150)
[2025-07-22 10:05] LABS: Thyroid Stimulating Hormone 0.75 uIU/mL (0.32-4.0)
--- OUTSIDE RECORDS SUMMARY | 2025-07-22 10:29 | XMS_ITS | Patient Health Record ---
Author Organization [facility] Address [address] [place] [address] Care Team Providers Care Electronics Technician Apprentice Name Role Phone Leslie Lundy Primary Care Provider Calixto Corado Unavailable [phone] Allergies Allergen (clinical drug ingredient) Drug/Non Drug Allergy documented on EMR Reaction Allergy Type Onset Date Status dust , seasonal changes (uncoded) Unknown Allergy Active Reason For Referral No Information Medications Medication SIG (Take, Route, Frequency, Duration) Notes Start Date End Date Status Qvar Not-Taking /PRN ProAir HFA Not-Takin g/PRN Loratadine 10 MG Tablet 1 tablet Orally Once a day/prn Active metFORMIN HCl Active Lisinopril 5 MG Tablet Orally Once a day Active Flonase as needed for allergies Active Multivitamin Adult A ctive Vitamin B 12 100 MCG Orally DAILY Active Vitamin D Active iron daily/prn Active Synthroid Active Dicyclomine HCl 10 MG Capsule 1-2 capsules Orally 4 times a day prn abdominal bloating or cramps---you can also take it before the meals to try to prevent symptoms; Duration: 30 day(s) 04/20/2018 Active Social History Social History Additional Details Category Social Info Options Details Miscellaneous: Marital status: Occupation: House Section Notes: Vegetarian---born in [place], but grew up in [place]--came to [place] in 1994 Vegetarian---born in [place], but grew up in [place]--came to [place] in [place] --Drinks milk Problems Problem Type SNOMED Code ICD Code Onset Dates Problem Status W/U Status Risk Notes Problem Screening for malignant neoplasm of colon (643895961) Encounter for screening for malignant neoplasm of colon (Z12.11) Active confirmed Problem Irritable bowel syndrome with diarrhea (977923377) Irritable bowel syndrome with diarrhea (K58.0) Active confirmed Problem Screening for malignant neoplasm of rectum (395808182) Encounter for screening for malignant neoplasm of rectum (Z12.12) Active confirmed Problem Pre-surgery evaluation (999512782) Pre-procedural laboratory examination (Z01.812) Active confirmed Plan Of Treatment Future Test Test Name Order Date COLONOSCOPY 05/24/2016 Insurance Providers Payer Name Payer Address Payer Phone Subscriber Number Group Number Insured Name Patient Relationship to Insured Coverage Start Date Coverage End Date [facility] [address] [address] [place], [place] [id number] JAGRUTI LEE Self - patient is the insured Medical (General) History Medical History History ICD Code NIDDM Denies [place],CVA,Lung disease,renal disease Hypertension Allergies Hypothyroidism Rheumatoid arthritis Anemia--Hgb 11.0 02/2016, Iron 25 and Iro n sat 6% 04/2016 Normal colonoscopy to cecum and TI in 2016 IBS Surgical History Surgery Date(Month/Year) x2 Carpal tunnel release right hand Cyst removed both axillae age 18 Tonsillectomy
[2025-07-22 11:53] LABS: Microalbum/Creatinine Ratio Ur 14.1 ug/mg cr (<30)
== END 2025-07-22 08:41 | disposition home or self-care (01) ==
LOC: HO.LAB 08:40
PROVIDERS: PCP Internal Medicine; Visit Provider Internal Medicine
DX: E11.9 Type 2 diabetes mellitus without complications (principal); I10 Essential (primary) hypertension; E03.8 Other specified hypothyroidism; M54.50 Low back pain, unspecified
CPT/HCPCS: 36415; 80053; 80061; 82043; 82570; 83036; 84443